=== PATIENT | female | born 1945 | race Two or more races ===

== ENCOUNTER 2022-04-21 15:42 | Emergency (ER) | payer BC, OTHER ==
[~2022-04-21] VITALS: Ht 157.5 cm; Wt 61.3 kg
[2022-04-21 15:42] VITALS: BP 175/83
== END 2022-04-21 23:55 | disposition left against medical advice (07) ==
LOC: ER 15:42
DX: M54.9 Dorsalgia, unspecified (principal); Z53.21 Procedure and treatment not carried out due to patient leaving prior to being seen by health care provider; W18.39XA Other fall on same level, initial encounter; Y93.89 Activity, other specified; Y92.89 Other specified places as the place of occurrence of the external cause; Y99.8 Other external cause status

== ENCOUNTER 2022-04-22 08:41 | Emergency (ER) | payer BC ==
[~2022-04-22] VITALS: Ht 162.6 cm; Wt 61.3 kg
[2022-04-22 08:45] VITALS: BP 149/56
== END 2022-04-22 13:04 | disposition home or self-care (01) ==
LOC: ER 08:41
DX: S39.012A Strain of muscle, fascia and tendon of lower back, initial encounter (principal); W01.0XXA Fall on same level from slipping, tripping and stumbling without subsequent striking against object, initial encounter; Y93.89 Activity, other specified; Y92.89 Other specified places as the place of occurrence of the external cause; Y99.8 Other external cause status
CPT/HCPCS: 70450; 72131; 93005

== ENCOUNTER 2025-02-08 19:24 | Inpatient (IN) | payer MEDICARE, MEDICAID ==
[~2025-02-08] VITALS: Ht 157.5 cm; Wt 68.6 kg
[~2025-02-08 19:24] MED LIST: APIX5TAB PO; EMPA1TAB PO
--- NOTE | 2025-02-08 19:31 | ED.PDOC ---
Musculoskeletal HPI Comments This is a 79 year old female ELLYA presenting to the ED with chief complaint of ankle pain. Patient reports that she had a mechanical fall yesterday at noon, twisting her left ankle in the process and since then has been experiencing pain and swelling. EMS relays that the patient's home health nurse visited her today and noted patient's HR was at 48, prompting her great granddaughter to call 911 for assistance. EMS states they provided 1mg of Atropine IV with an improvement in her heart rate up to 68. Patient denies any chest pain, back pain, SOB, dizziness, headache, N/V, or further injury at this time. Time Seen by MD: 19:28 Primary Care Provider: ROSA M Reviewed Notes: Nurses Notes, Data Management Consultant Notes, Medications, Allergies Allergies: Coded Allergies: No Known Drug Allergy (Verified Allergy, Unknown, 04/22/22) Information Source: Patient, Emergency Med Personnel Mode of Arrival: EMS Location: Left Timing: Days Prehospital treatment: None Severity: Moderate Able to Move Extremity: Yes Bear Weight: Limited Pain: Moderate Mechanism: Twisting Circumstances: Fall Onset of Symptoms: After Trauma Symptoms: Swelling, Pain DVT Risk Factors: NONE Last Tetanus: UTD Associated signs and symptoms: Ankle pain Past Medical History PAST MEDICAL HISTORY: AFIB, CHF, CVA, High Lipids, HTN Surgical History (Other): Rt shoulder surgery COMPLIANCE MONITOR History: No Pertinent COMPLIANCE MONITOR History Family History Family History: Reviewed,noncontributory to illness Social History Smoker: Non-Smoker Alcohol: Denies ETOH Use Drugs: Denies Drug Use Lives In: Home Constitutional: denies: chills, diaphoresis, fatigue, fever, malaise, sweats, weakness, others EENTM: denies: blurred vision, double vision, ear bleeding, ear discharge, ear drainage, ear pain, ear ringing, eye pain, eye redness, hearing loss, mouth p ain, mouth swelling, nasal discharge, nose bleeding, nose congestion, nose pain, photophobia, tearing, throat pain, throat swelling, voice changes, others Respiratory: denies: cough, hemoptysis, orthopnea, SOB at rest, shortness of br eath, SOB with excertion, stridor, wheezing, others Cardiovascular: denies: chest pain, dizzy spells, diaphoresis, Dyspnea on exertion, edema, irregular heart beat, left arm pain, lightheadedness, palpitations, PND, syncope, others Gastrointestinal: denies: abdomen distended, abdominal pain, blood streaked bowels, constipated, diarrhea, dysphagia, difficulty swallowing, hematemesis, melena, nausea, poor appetite, poor fluid intake, rectal bleeding, rectal pain, vomiting, others Genitourinary: denies: abnormal vagina bleeding, burning, dyspareunia, dysuria, flank pain, frequency, hematuria, incontinence, pain, , vagina discharge, urgency, others Neurological: denies: dizziness, fainting, headache, left sided numbness, left sided weakness, numbness, paresthesia, pre-existing deficit, right sided numbness, right sided weakness, seizure, speech problems, tingling, tremors, weakness, others Musculoskeletal: reports: others (Lt ankle pain); denies: back pain, gout, joint pain, joint swelling, muscle pain, muscle stiffness, neck pain Integumetry: denies: bruises, change in color, change in hair/nails, dryness, laceration, lesions, lumps, rash, wounds, others Allergic/Immunocompromised: denies: Difficulty Healing, Frequent Infections, Hives, Itching, others Hematologic/Lymphatic: denies: anemia, blood clots, easy bleeding, easy bruising, swollen glands, others Endocrine: denies: excessive hunger, excessive sweating, excessive thirst, excessive urination, flushing, intolerance to cold, intolerance to heat, unexplained weight gain, unexplained weight loss, others Psychiatric: denies: anxiety, bipolar disorder, depression, hopeless, panic disorder, schizophrenia, sleepless, suicidal, others All Other Systems: Reviewed and Negative Physical Exam General Appearance: Moderate Distress HEENT: Normal ENT Inspection, Pharynx Normal, TMs Normal Neck: Full Range of Motion, Non-Tender, Normal, Normal Inspection Respiratory: Chest Non-Tender, Lungs Clear, No Accessory Muscle Use, No Respiratory Distress, Normal Breath Sounds Cardiovascular: No Edema, No JVD, No Murmur, No Gallop, Normal Peripheral Pulses, Regular Rate/Rhythm Breast Exam: Deferred Gastrointestinal: No Organomegaly, Non Tender, No Pulsatile Mass, Normal Bowel Sounds, Soft Genitalia: Deferred Pelvic: Deferred Rectal: Deferred Extremities: No calf tenderness, Normal capillary refill, No pedal edema Musculoskeletal : Location: Left Extremity Location: Ankle Apperance: Swelling, Limited ROM, Tenderness: Moderate Neurologic: Alert, service bar cashier II-XII nml as Tested, No Motor Deficits, Normal Affect, Normal Mood, No Sensory Deficits Cerebellar Function: Normal Reflexes: Normal Skin: Dry, Normal Color, Warm Lymphatic: No Adenopathy Was a procedure done? Was a procedure done?: No EKG EKG : Pulse Rate (adult): 78 [place]: Normal Cardiac Rhythm: NSR Block: None Hypertrophy: LAE ST: Normal Differential Diagnosis EXT Differential Diagnosis: Fracture, Sprain, Contusion, Strain X-Ray, Labs, Meds, VS Vital Signs Date Time Temp Pulse Resp B/P (MAP) Pulse Ox O2 Delivery O2 Flow Rate FiO2 02/08/25 20:00 52 11 130/79 (96) 92 02/08/25 19:34 78 02/08/25 19:31 60 02/08/25 19:24 98.0 62 17 117/64 99 98.0 Lab Test 02/08/25 20:40 02/08/25 19:35 Range/Units Troponin I High Sensitivity Pending 6 </=34 ng/L White Blood Count 4.6 4.4-10.8 10^3/uL Red Blood Count 4.27 4.0-5.20 10^6/uL Hemoglobin 13.1 12.2-16.2 g/dL Hematocrit 39.3 36.0-46.0 % Mean Corpuscular Volume 92.1 80.0-100.0 fL Mean Corpuscular Hemoglobin 30.6 28.0-32.0 pg Mean Corpuscular Hemoglobin Concent 33.3 32.0-36.0 g/dL Red Cell Distribution Width 16.4 H 11.8-14.3 % Platelet Count 304 140-450 10^3/uL Mean Platelet Volume 8.4 6.9-10.8 fL Neutrophils (%) (Auto) 53.6 37.0-80.0 % Lymphocytes (%) (Auto) 32.6 10.0-50.0 % Monocytes (%) (Auto) 11.4 0.0-12.0 % Eosinophils (%) (Auto) 1.3 0.0-7.0 % Basophils (%) (Auto) 1.1 0.0-2.0 % Neutrophils # (Auto) 2.5 1.6-8.6 10 ^3/uL Lymphocytes # (Auto) 1.5 0.4-5.4 10 ^3/uL Monocytes # (Auto) 0.5 0-1.3 10 ^3/uL Eosinophils # (Auto) 0.1 0-0.8 10 ^3/uL Basophils # (Auto) 0.1 0-0.2 10 ^3/uL Nucleated Red Blood Cells 0.1 % Sodium Level 140 136-145 mmol/L Potassium Level 4.2 3.5-5.1 mmol/L Chloride Level 104 98-107 mmol/L Carbon Dioxide Level 26 20-31 mmol/L Anion Gap 10 5-15 Blood Urea Nitrogen 19 9-23 mg/dL Creatinine 1.60 H 0.550-1.02 mg/dL Glomerular Filtration Rate Calc 33 >90 mL/min BUN/Creatinine Ratio 11.9 10.0-20.0 Serum Glucose 113 H 74-106 mg/dL Calcium Level 9.5 8.7-10.4 mg/dL Magnesium Level 2.1 1.6-2.6 mg/dL The patient's CBC is within normal limits The chemistry panel is within normal limits except for creatinine of 1.6 The troponin level is negative At this time the chest x-ray is negative The x-ray of the left ankle shows: FINDINGS/IMPRESSION: [ There is an acute fracture distal fibular meta diaphysis/lateral malleolus. Lateral malleolar region soft tissue edema. Osteopenia. Inferior calcaneal spurring. Cortical irregularity 5th metatarsal base. Correlate with point tenderness to exclude fracture. The patient is being placed in a stirrup splint. The patient will be admitted to the hospitalist The patient had another episode of bradycardia here in the emergency department's The patient will be admitted and a cardiology consult will be obtained. Images Reviewed?: Images reviewed and evaluated by me Time of 1ST Reevaluation: 20:58 Reevaluation 1ST: Unchanged Patient Education/Counseling: Diagnosis, Treatment, Prognosis Family Education/Counseling: No Family Present Departure 1 Departure Time of Disposition: 20:57 Impression: Primary Impression: Closed left ankle fracture Qualified Codes: S82.892A - Other fracture of left lower leg, initial enco unter for closed fracture Additional Impressions: Bradycardia Generalized weakness Disposition: 09 ADMITTED INPATIENT Admit to: [facility] Condition: Fair Critical Care Note Critical Care Time?: No Stability Stability form required: No Heart Score Heart Score: Heart Score Response (Comments) Value History N/A 0 EKG N/A 0 Age N/A 0 Risk Factors N/A 0 Troponin N/A 0 Total 0 I personally scribed for NUNU WILSON MD ([email or web address]) on 02/08/25 at 19:31. Electronically submitted by Anthony Beckett ([email or web address]). I personally scribed for NUNU WILSON MD ([email or web address]) on 02/08/25 at 19:34. Electronically submitted by Anthony Beckett ([email or web address]). NUNU WILSON MD Feb 08, 2025 19:31
--- NOTE | 2025-02-08 19:37 | ECG ---
[facility] Test Date: 2025-02-08 Test Time: 19:31:43 Pat Name: ARTHUR TAVARES Department: Room: 024[facility] Gender: F [employer] Director School: [employer] : 1945 Requested By: NUNU WILSON Order Number: [id number] Reading MD: Eric Albright Measurements Intervals [place] Rate: 60 P: 67 IN: 171 QRS: -70 QRSD: 125 T: 102 QT: 442 QTc: 442 Interpretive Statements Sinus rhythm Probable left atrial enlargement Nonspecific IVCD with LAD Nonspecific T abnormalities, lateral leads Electronically Signed On 02-11-2025 18:49:09 PDT by Eric Albright Please click the below link to view image of tracing.
[2025-02-08 19:48] LABS: Hematocrit 39.3 % (36.0-46.0); Hemoglobin 13.1 g/dL (12.2-16.2); Mean Corpuscular Hemoglobin 30.6 pg (28.0-32.0); Mean Corpuscular Volume 92.1 fL (80.0-100.0); Nucleated Red Blood Cells % 0.1 %
[2025-02-08 19:59] LABS: Chloride 104 mmol/L (98-107); Potassium 4.2 mmol/L (3.5-5.1); Sodium 140 mmol/L (136-145)
[2025-02-08 20:00] LABS: Anion Gap 10 (5-15); Calcium 9.5 mg/dL (8.7-10.4); Carbon Dioxide 26 mmol/L (20-31)
[2025-02-08 20:05] LABS: BUN/Creatinine Ratio 11.9 (10.0-20.0); Blood Urea Nitrogen 19 mg/dL (9-23)
[2025-02-08 20:08] LABS: Glucose 113 mg/dL (74-106)
--- NOTE | 2025-02-08 20:47 | DVH ---
CHEST RADIOGRAPH Indication: fall Technique: Single frontal view of the chest was obtained Comparison: None FINDINGS: The cardiac silhouette is enlarged. The lungs demonstrate perihilar airspace opacities. The pulmonary vasculature is prominent. There is no pleural effusion. There is no pneumothorax. Aortic atheroscler otic disease. IMPRESSION: Cardiomegaly with pulmonary vascular congestion and bilateral perihilar airspace opacities.
--- NOTE | 2025-02-08 20:48 | DVH ---
Indication: fall Technique: XY L ANKLE 3 VIEWXY Comparison: None FINDINGS/IMPRESSION: [ There is an acute fracture distal fibular meta diaphysis/lateral malleolus. Lateral malleolar jaiden on soft tissue edema. Osteopenia. Inferior calcaneal spurring. Cortical irregularity 5th metatarsal base. Correlate with point tenderness to exclude fracture.
[2025-02-08] MEDS: ONDANSETRON HCL 4 MG/2 ML VIAL IV ONE (21:26)
[2025-02-08] MEDS: MORPHINE SULFATE 4 MG/ML SYR/VIAL IV ONE (21:26)
[2025-02-08] MEDS ORDERED: HYDROcodone-ACET 5/325MG TAB PO PRN (22:15)
[2025-02-08] MEDS ORDERED: MORPHINE SULFATE INJ 2 MG/ml SYRG IV PRN (22:15)
[2025-02-08] MEDS ORDERED: NITROGLYCERIN 0.4 MG SL TAB SL PRN (22:15)
--- NOTE | 2025-02-08 22:15 | DVHHP2 ---
History of Present Illness Reason for Visit: Closed left ankle fracture History of Present Illness The patient is a 79 year female with past medical history of AFib, CHF, CVA, hyperlipidemia, and hypertension who presented to [facility] with complaint of left ankle pain. Patient reports that she had a mechanical fall yesterday at noon, twisting her left ankle in the process and since then she has been experiencing pain and swelling. EMS reports that the patient's home health nurse visited her today and noted patient's HR was at 48, prompting her great granddaughter to call 911 for assistance. Patient was seen and evaluated in the ED, laboratory data shows WBC 4.6, platelets 304, sodium 140, potassium 4.2, BUN 19, creatinine 1.60, glucose 113, calcium 9.5, troponin 7, blood pressure 116/49, heart rate 44, temperature 97.6 F, O2 saturation 98% on room air. Left ankle x-ray revealing acute fracture distal fibula meta diaphysis/lateral malleolus; lateral malleolar region soft tissue edema; osteopenia, inferior calcaneal spurring. Chest x-ray revealing cardiomegaly with pulmonary vascular congestion and bilateral perihilar airspace opacities. Please see medication orders section in the computer. On my assessment, patient denied chest pain, no headache, no dizziness, no diaphoresis, no shortness of breaths, no nausea, no vomiting, no fever, no chills. Patient was admitted for further evaluation and medical management. Past Medical History AFIB, CHF, CVA, High Lipids, HTN Past Surgical History Rt shoulder surgery Family History Reviewed, noncontributory to the management of this case. Past Social History The patient lives at home, denies smoking, alcohol or illicit drugs abuse. Review of Systems Constitutional: No: Fever, Chills, Sweats, Weakness, Malaise, Other Eyes: No: Pain, Vision change, Conjunctivae inflammation, Eyelid inflammation, Other, Redness ENT: No: Ear pain, Ear discharge, Nose pain, Nose discharge, Nose congestion, Mouth pain, Mouth swelling, Throat pain, Throat swelling, Other Respiratory: No: Cough, Dry, Shortness of breath, SOB with excertion, Wheezing, Hemoptysis, Pleuritic Pain, Sputum, Wheezing, Other Cardiovascular: No: Chest Pain, Palpitations, Orthopnea, Paroxysmal Noc. Dyspnea, Edema, Lt Headedness, Other Gastrointestinal: No: Nausea, Vomiting, Abdominal Pain, Diarrhea, Constipation, Melena, Hematochezia, Other Genitourinary: No Dysuria, No Frequency, No Incontinence, No Hematuria, No Retention, No Other Musculoskeletal: other (Lt ankle pain); No: neck pain, shoulder pain, arm pain, back pain, hand pain, leg pain, foot pain Skin: No: Rash, Lesions, Jaundice, Bruising, Other Neurological: No: Weakness, Numbness, Incoordination, Change in speech, Confusion, Seizures, Other Allergies: Coded Allergies: No Known Drug Allergy (Verified Allergy, Unknown, 04/22/22) Exam Vital Signs Vital Signs Date Time Temp Pulse Resp B/P (MAP) Pulse Ox O2 Delivery O2 Flow Rate FiO2 02/08/25 21:26 44 15 116/49 02/08/25 20:40 Room Air* 0 21 02/08/25 20:40 97.2 98 97.2 General Appearance: Alert, Oriented X3, Cooperative, No acute distress HEENT: Atraumatic, PERRLA, EOMI, Mucous membr. moist/pink Respiratory: Normal air movement Cardiovascular: Regular rate, Normal S1, Normal S2, No murmurs Abdominal: Normal bowel sounds, Soft, No tenderness, No hepatospenomegaly, No masses Extremities: No clubbing, No cyanosis, No edema, Normal pulses, Other (Left ankle tenderness) Skin: No rashes, No significant lesion Neuro: Normal speech, Normal tone, Sensation intact, Cranial nerves 3-12 NL, Reflexes 2+, Other (Generalized weakness) Psych/Mental Status: Mental status NL, Mood NL Labs/Xrays Labs Test 02/08/25 20:40 02/08/25 19:35 Range/Units Troponin I High Sensitivity 7 </=34 ng/L White Blood Count 4.6 4.4-10.8 10^3/uL Red Blood Count 4.27 4.0-5.20 10^6/uL Hemoglobin 13.1 12.2-16.2 g/dL Hematocrit 39.3 36.0-46.0 % Mean Corpuscular Volume 92.1 80.0-100.0 fL Mean Corpuscular Hemoglobin 30.6 28.0-32.0 pg Mean Corpuscular Hemoglobin Concent 33.3 32.0-36.0 g/dL Red Cell Distribution Width 16.4 H 11.8-14.3 % Platelet Count 304 140-450 10^3/uL Mean Platelet Volume 8.4 6.9-10.8 fL Neutrophils (%) (Auto) 53.6 37.0-80.0 % Lymphocytes (%) (Auto) 32.6 10.0-50.0 % Monocytes (%) (Auto) 11.4 0.0-12.0 % Eosinophils (%) (Auto) 1.3 0.0-7.0 % Basophils (%) (Auto) 1.1 0.0-2.0 % Neutrophils # (Auto) 2.5 1.6-8.6 10 ^3/uL Lymphocytes # (Auto) 1.5 0.4-5.4 10 ^3/uL Monocytes # (Auto) 0.5 0-1.3 10 ^3/uL Eosinophils # (Auto) 0.1 0-0.8 10 ^3/uL Basophils # (Auto) 0.1 0-0.2 10 ^3/uL Nucleated Red Blood Cells 0.1 % Sodium Level 140 136-145 mmol/L Potassium Level 4.2 3.5-5.1 mmol/L Chloride Level 104 98-107 mmol/L Carbon Dioxide Level 26 20-31 mmol/L Anion Gap 10 5-15 Blood Urea Nitrogen 19 9-23 mg/dL Creatinine 1.60 H 0.550-1.02 mg/dL Glomerular Filtration Rate Calc 33 >90 mL/min BUN/Creatinine Ratio 11.9 10.0-20.0 Serum Glucose 113 H 74-106 mg/dL Calcium Level 9.5 8.7-10.4 mg/dL Magnesium Level 2.1 1.6-2.6 mg/dL PATIENT: ARTHUR TAVARES ACCT: [id number] UNIT: [id number] : 1945 LOC: ER ROOM / BED: / AGE / SEX: 79 / F ADM STATUS: REG ER SERVICE 27 ORDERING PHYSICIAN: NUNU WILSON MD PROCEDURE(s): LANKL - L ANKLE 3 VIEW REASON: fall ORDER NUMBER(s): [id number], ACCESSION NUMBER(s): [id number] Indication: fall Technique: XY L ANKLE 3 VIEWXY Comparison: None FINDINGS/IMPRESSION: There is an acute fracture distal fibular meta diaphysis/lateral malleolus. Lateral malleolar region soft tissue edema. Osteopenia. Inferior calcaneal spurring. Cortical irregularity 5th metatarsal base. Correlate with point tenderness to exclude fracture. ORDERING PHYSICIAN: NUNU WILSON MD PROCEDURE(s): CXRP - CHEST PORTABLE REASON: fall ORDER NUMBER(s): [id number], ACCESSION NUMBER(s): [id number] CHEST RADIOGRAPH Indication: fall Technique: Single frontal view of the chest was obtained Comparison: None FINDINGS: The cardiac silhouette is enlarged. The lungs demonstrate perihilar airspace opacities. The pulmonary vasculature is prominent. There is no pleural effusion. There is no pneumothorax. Aortic atherosclerotic disease. IMPRESSION: Cardiomegaly with pulmonary vascular congestion and bilateral perihilar airspace opacities. SEPSIS Sepsis Screen Date sepsis recognized/suspect: Feb 08, 2025 Time Sepsis recognized/suspect: 2039 Recent Procedure: No On Antibiotic Therapy: No Respiratory Rate >20: No Heart Rate >90: No Temp<36 C (96.8 F) or >38.3 C: No SBP <90 or MAP <65 mmHG: No New Acute Mental Status Change: No Is the patient on CPAP, BIPAP,: No Physician Orders Chest Portable (02/08/25 19:28) Heplock Iv (02/08/25 19:28) Metal Mover (02/08/25 19:28) Blood Pressure (02/08/25 19:28) Pulse Oximetry (02/08/25 19:28) L Ankle 3 View (02/08/25 19:28) Electrocardigram (02/08/25 20:28) Electrocardigram (02/08/25 22:28) Insert Bruno Catheter QSHIFT (02/08/25 21:13) * Cardiology Consult (02/08/25 21:47) Amiodarone Tablet (Cordarone Tablet) (02/09/25 10:00) Atorvastatin (Lipitor) (02/09/25 22:00) Apixaban (Eliquis) (02/09/25 10:00) Code Status (02/08/25 22:10) Sodium Chloride Lock (Saline Lock Ns) (02/09/25 06:00) Oxygen Per Hour (9/19/25 22:10) Hydrocodone-Acet 5/325mg Tab ([place] 5/32 (02/08/25 22:15) Ondansetron Hcl (Zofran) (02/08/25 22:15) Docusate Sodium Capsule (Colace Capsule) (02/08/25 22:15) Fall Risk Precautions In Place QSHIFT (02/08/25 22:10) Complete Blood Count (02/09/25 04:00) Comprehensive Metabolic Panel (02/09/25 04:00) Cardiac Diet-2gna,Lofat,Lochol (02/09/25 Breakfast) Condition: Serious (02/08/25 22:10) Acetaminophen Tablet (Tylenol Tablet) (02/08/25 22:15) Maintain Bed Rest (02/08/25 22:10) Sequential Compression Device (02/08/25 ) Nitroglycerin Sublingual (Ntrostat Subli (02/08/25 22:15) Morphine Sulfate Injection (02/08/25 22:15) Stat Ekg For Chest Pain (02/08/25 22:10) Notify Md Of Changes From Base (02/08/25 22:10) Physical Chemistry Professor For 24 Hours (02/08/25 22:10) Emergency Dysrhythmia Protocol (02/08/25 22:10) Rhythm Strips Once Every Shift (02/08/25 22:10) Oxygen By Nasal Cannula (02/08/25 22:10) Admit (02/08/25 22:10) Allergies (02/08/25 22:10) Vital Signs Date Time Temp Pulse Resp B/P (MAP) Pulse Ox O2 Delivery O2 Flow Rate FiO2 02/08/25 21:26 44 15 116/49 02/08/25 20:40 Room Air* 0 21 02/08/25 20:40 97.2 48 11 123/52 (75) 98 97.2 02/08/25 20:00 52 11 130/79 (96) 92 02/08/25 19:34 78 02/08/25 19:31 60 02/08/25 19:24 98.0 62 17 117/64 99 98.0 Laboratory Tests Test 02/08/25 19:35 White Blood Count 4.6 10^3/uL (4.4-10.8) Medications Medications Dose Ordered Sig/Homer Route Start Time Stop Time Status Last Admin Dose Admin Morphine Sulfate 4 mg ONCE ONCE IV 02/08/25 21:15 02/08/25 21:16 DC 02/08/25 21:26 4 MG Ondansetron HCl 4 mg ONCE ONCE IV 02/08/25 21:15 02/08/25 21:16 DC 02/08/25 21:26 4 MG Assessment/Plan Assessment/Plan Closed left ankle fracture Bradycardia Acute renal injury Generalized weakness Other fracture of left lower leg, initial encounter for closed fracture Plan 1. Admit to telemetry unit 2. Breathing treatment 3. Pain control management 4. Management of fluids and electrolytes 5. Consultation for orthopedic/cardiology 6. Diagnostic tests chest x-ray 7. DVT prophylaxis-on aspirin 8. Repeat labs CBC, CMP in a.m. 9. Continue with current medical management 10. Treatment plan discussed with patient and RN. Patient verbalized understanding. Plan discussed with: Patient, Other (RN) My Orders Orders - EMELIA SMITH DNP Procedure Category Date Status Time * Cardiology Consult CONS 02/08/25 Transmitted 21:47 Amiodarone Tablet PHA 02/09/25 Transmitted (Cordarone Tablet) 10:00 Atorvastatin (Lipitor) PHA 02/09/25 Transmitted 22:00 Apixaban (Eliquis) PHA 02/09/25 Transmitted 10:00 Code Status CODE 02/08/25 Transmitted 22:10 Sodium Chloride Lock PHA 02/09/25 Transmitted (Saline Lock Ns) 06:00 Oxygen Per Hour RT 02/08/25 Transmitted 22:10 Hydrocodone-Acet PHA 02/08/25 Transmitted 5/325mg Tab ([place] 22:15 Ondansetron Hcl PHA 02/08/25 Transmitted (Zofran) 22:15 Docusate Sodium PHA 02/08/25 Transmitted Capsule (Colace 22:15 Fall Risk Precautions AJ 02/08/[address] 22:10 Complete Blood Count LAB 02/09/25 Verified 04:00 Comprehensive LAB 02/09/25 Verified Metabolic Panel 04:00 Cardiac DIET 02/09/25 Transmitted Diet-2gna,Lofat,Lochol Breakfast Condition: Serious AJ 02/08/25 Transmitted 22:10 Acetaminophen Tablet PHA 02/08/25 Transmitted (Tylenol Tablet) 22:15 Maintain Bed Rest AJ 02/08/25 Transmitted 22:10 Sequential AJ 02/08/25 Transmitted Compression Device Nitroglycerin [facility] 02/08/25 Transmitted Sublingual (Ntrostat 22:15 Morphine Sulfate [facility] 02/08/25 Transmitted Injection 22:15 Stat Ekg For Chest [facility] 02/08/25 Transmitted Pain 22:10 Notify Md Of Changes [facility] 02/08/25 Transmitted From Base 22:10 Physical Chemistry Professor For [facility] 02/08/25 Transmitted 24 Hours 22:10 Emergency Dysrhythmia [facility] 02/08/25 Transmitted Protocol 22:10 Rhythm Strips Once [facility] 02/08/25 Transmitted Every Shift 22:10 Oxygen By Nasal RT 02/08/25 Transmitted Cannula 22:10 Admit ADMIT 02/08/25 Transmitted 22:10 Allergies AJ 02/08/25 Transmitted 22:10 Problem List: (1) Closed left ankle fracture (2) Bradycardia (3) Acute renal injury (4) Generalized weakness (5) Other fracture of left lower leg, initial encounter for closed fracture Date of Service: Feb 08, 2025 Billing Provider: EMELIA SMITH DNP Common Visit Codes: [id number] INP/OBS CARE (HIGH) EMELIA SMITH DNP Feb 08, 2025 22:15
[2025-02-08] MEDS: ATROPINE SULF 1 MG/10ml SYR IV ONE (22:40)
[2025-02-09] VITALS (88 sets, daily range): BP systolic 56–139; BP diastolic 29–83; PULSE 39–80; RESP 9–22; TEMP 97.6–99.2; O2SAT 60–99
[2025-02-09] MEDS ORDERED: ATOR-507 PO (01:40)
[2025-02-09] MEDS ORDERED: LISI40TA16 PO (01:40)
[2025-02-09] MEDS ORDERED: SPIR25TA8 PO (01:40)
[2025-02-09] MEDS ORDERED: AMIO200T33 PO (01:40)
[2025-02-09] MEDS ORDERED: AMLO1TAB22 PO (01:40)
[2025-02-09] MEDS ORDERED: GABA-1308 PO (01:40)
[2025-02-09] MEDS ORDERED: FURO20TA3 PO (01:40)
[2025-02-09] MEDS: DOPamine 1600MCG/ML D5W 250 ML IV SCH ×2 (02:09→06:59)
[2025-02-09] MEDS: DOPamine 1600MCG/ML D5W 250 ML IV ONE (02:15)
[2025-02-09] MEDS: SODIUM CHLOR 0.9% PF (SALINE LOCK) 10ML VIAL/SYR IV SCH (05:36)
[2025-02-09] MEDS: ACETAMINOPHEN 325 MG TAB PO PRN (05:37)
[2025-02-09 05:53] LABS: Hematocrit 40.4 % (36.0-46.0); Hemoglobin 13.6 g/dL (12.2-16.2); Mean Corpuscular Hemoglobin 30.8 pg (28.0-32.0); Mean Corpuscular Volume 91.5 fL (80.0-100.0); Nucleated Red Blood Cells % 0.1 %
[2025-02-09 06:10] LABS: Alanine Aminotransferase 11 U/L (7-40); Albumin 4.2 g/dL (3.2-4.8); Alkaline Phosphatase 85 U/L (46-116); Anion Gap 10 (5-15); BUN/Creatinine Ratio 12.5 (10.0-20.0); Blood Urea Nitrogen 21 mg/dL (9-23); Calcium 9.4 mg/dL (8.7-10.4); Carbon Dioxide 26 mmol/L (20-31); Chloride 105 mmol/L (98-107); Glucose 100 mg/dL (74-106); Potassium 4.3 mmol/L (3.5-5.1); Sodium 141 mmol/L (136-145); Total Protein 7.6 g/dL (5.7-8.2)
[2025-02-09 06:11] LABS: Bilirubin, Total 0.5 mg/dL (0.2-1.0)
--- NOTE | 2025-02-09 09:25 | DVHINCON2 ---
Date Seen: Feb 09, 2025 Referring Physician ANA LILIA Harris Reason for Consultation Bradycardia History of Present Illness 79-year-old female with past medical history of atrial fibrillation on Eliquis and amiodarone, prior CVA, right lower extremity DVT, PE, hyperlipidemia, hypertension, and CHF, presents via EMS with complaint of left ankle pain. Patient reports a mechanical fall two days ago, with progressive ankle pain pro mpting ED visit. She was found to have a left ankle fracture. Incidentally she was noted to be bradycardic with heart rate as low as 38, prompting cardiology consultation. Patient was started on dopamine infusion at five mcg/min, with rhythm now sustained sinus bradycardia in 60s. Patient is alert and oriented x3 and denies dizziness, syncope, shortness of breath, chest pain, or palpitations. She reports being evaluated at [facility] a few weeks ago for bradycardia, during which she wore a Holter monitor. She has a scheduled appointment with her branch sales and service representative, Dr. Reddy, in two days to discuss the results. I spoke to her daughter on the phone and provides collateral history. Past Medical History As stated in HPI Past Surgical History Right shoulder surgery Family History: Diabetes mellitus G8 MOTHER Family History Reviewed, non-contributory to the management of this case. Social History The patient lives at home, denies smoking, alcohol or illicit drugs abuse. Allergies: Coded Allergies: No Known Drug Allergy (Verified Allergy, Unknown, 04/22/22) Home Meds Reported Medications Amiodarone Hcl (Amiodarone Hcl) 200 Mg Tab, 200 MG PO Q12HR for 30 Days 02/09/25 Furosemide (Furosemide) 20 Mg Tab, 20 MG PO DAILY for 30 Days, MG 02/09/25 Empagliflozin (Jardiance) 10 Mg Tab, 10 MG PO, TAB 02/09/25 Lisinopril (Lisinopril) 40 Mg Tab, 40 MG PO DAILY for 30 Days, MG 02/09/25 Spironolactone (Spironolactone) 25 Mg Tab, 1 TAB PO DAILY, #30 TAB 5 Refills 02/09/25 Atorvastatin Calcium (Lipitor) 40 Mg Tab, 1 TAB PO DAILY, #30 TAB 5 Refills 02/09/25 Amlodipine Besylate (Amlodipine Besylate) 5 Mg Tab, 10 MG PO DAILY for 30 Days, MG 02/09/25 Gabapentin (Gabapentin) 100 Mg Cap, 100 MG PO TID 02/09/25 Current Medications Current Medications Medications (Trade) Dose Ordered Sig/Homer Route PRN Reason Start Time Stop Time Status Last Admin Amiodarone HCl (Cordarone Tablet) 200 mg Q12HR PO 02/09/25 10:00 02/08/25 22:36 DC Atorvastatin Calcium (Lipitor) 20 mg HS PO 02/09/25 22:00 Apixaban (Eliquis) 5 mg BID PO 02/09/25 10:00 Sodium Chloride (Saline Lock Ns) 10 ml Q8HR IV 02/09/25 06:00 02/09/25 05:36 Acetaminophen/ Hydrocodone Bitart ([place] 5/325MG Tab) 1 tab Q4HP PRN PO MODERATE PAIN (4-6 PAIN SCALE) 02/08/25 22:15 Ondansetron HCl (Zofran) 4 mg Q4HP PRN IV NAUSEA / VOMITING 02/08/25 22:15 Docusate Sodium (Colace Capsule) 100 mg BIDPRN PRN PO FOR CONSTIPATION 02/08/25 22:15 Acetaminophen (Tylenol Tablet) 650 mg Q6HP PRN PO PAIN SCALE 1-3 OR TEMP>100.4 02/08/25 22:15 02/09/25 05:37 Nitroglycerin (Ntrostat Sublingual) 0.4 mg Q5MINP PRN SL FOR CHEST PAIN 02/08/25 22:15 Morphine Sulfate 2 mg Q30M PRN IV FOR CHEST PAIN 02/08/25 22:15 Dopamine HCl/ Dextrose 250 ml @ 13.125 mls/ hr Q19H3M IV 02/09/25 02:00 02/09/25 06:45 DC 02/09/25 02:09 Dopamine HCl/ Dextrose 250 ml @ 13.125 mls/ hr Q19H3M IV 02/09/25 06:45 02/09/25 06:59 Review of Systems Constitutional: No symptom reported Ears, Nose, & Throat: No symptom reported Eyes: No symptom reported Neurological: No symptoms reported Pulmonary/Respiratory: No symptom reported Cardiovascular: Bradycardia Gastrointestinal: No symptom reported Genitourinary: No symptom reported Musculoskeletal: Left ankle pain Skin: No symptom reported Psychiatric: No symptom reported Endocrine: No symptom reported Hemotologic/Lymphatic: No symptom reported Vital Signs Vital Signs Date Time Temp Pulse Resp B/P (MAP) Pulse Ox O2 Delivery O2 Flow Rate FiO2 02/09/25 07:00 65 13 102/43 (62) 93 02/09/25 04:30 97.6 97.6 02/09/25 00:40 Nasal Cannula* 2 28 Physical Exam INITIAL VITAL SIGNS: Reviewed by me GENERAL: Alert and interactive. No acute distress. HEAD: Head is normocephalic and atraumatic. EYES: EOMI, PERRL. No scleral icterus. No conjunctival injection. ENT: Moist mucous membranes. NECK: Supple, No masses, Full range of motion. RESPIRATORY: No tachypnea. Clear breath sounds bilaterally. No wheezing, rales, rhonchi. CV: Regular rate and rhythm. No edema GI/: Active bowel sounds, soft, nondistended, nontender. No guarding. No rebound. No masses. No CVA tenderness. INTEGUMENTARY: Warm and dry. No obvious rashes. Left ankle swelling and tenderness, limited range of motion. No calf swelling. Pulses palpable NEUROLOGIC: Alert and oriented. Face is symmetric. Speech is normal. Moves all extremities equally. Labs/Diagnostic Data Labs Test 02/09/25 05:15 02/08/25 20:40 02/08/25 19:35 Range/Units White Blood Count 6.8 # 4.4-10.8 10^3/uL Red Blood Count 4.42 4.0-5.20 10^6/uL Hemoglobin 13.6 12.2-16.2 g/dL Hematocrit 40.4 36.0-46.0 % Mean Corpuscular Volume 91.5 80.0-100.0 fL Mean Corpuscular Hemoglobin 30.8 28.0-32.0 pg Mean Corpuscular Hemoglobin Concent 33.6 32.0-36.0 g/dL Red Cell Distribution Width 15.9 H 11.8-14.3 % Platelet Count 307 140-450 10^3/uL Mean Platelet Volume 8.3 6.9-10.8 fL Neutrophils (%) (Auto) 66.7 37.0-80.0 % Lymphocytes (%) (Auto) 22.8 10.0-50.0 % Monocytes (%) (Auto) 8.4 0.0-12.0 % Eosinophils (%) (Auto) 1.5 0.0-7.0 % Basophils (%) (Auto) 0.6 0.0-2.0 % Neutrophils # (Auto) 4.5 1.6-8.6 10 ^3/uL Lymphocytes # (Auto) 1.5 0.4-5.4 10 ^3/uL Monocytes # (Auto) 0.6 0-1.3 10 ^3/uL Eosinophils # (Auto) 0.1 0-0.8 10 ^3/uL Basophils # (Auto) 0 0-0.2 10 ^3/uL Nucleated Red Blood Cells 0.1 % Sodium Level 141 136-145 mmol/L Potassium Level 4.3 3.5-5.1 mmol/L Chloride Level 105 98-107 mmol/L Carbon Dioxide Level 26 20-31 mmol/L Anion Gap 10 5-15 Blood Urea Nitrogen 21 9-23 mg/dL Creatinine 1.68 H 0.550-1.02 mg/dL Glomerular Filtration Rate Calc 31 >90 mL/min BUN/Creatinine Ratio 12.5 10.0-20.0 Serum Glucose 100 74-106 mg/dL Calcium Level 9.4 8.7-10.4 mg/dL Total Bilirubin 0.5 0.2-1.0 mg/dL Aspartate Amino Transferase (AST) 17 13-40 U/L Alanine Aminotransferase (ALT) 11 7-40 U/L Alkaline Phosphatase 85 46-116 U/L Total Protein 7.6 5.7-8.2 g/dL Albumin 4.2 3.2-4.8 g/dL Troponin I High Sensitivity 7 </=34 ng/L Magnesium Level 2.1 1.6-2.6 mg/dL B-Type Natriuretic Peptide 89.03 0-100 pg/mL PROCEDURE(s): CXRP - CHEST PORTABLE REASON: fall ORDER NUMBER(s): [id number], ACCESSION NUMBER(s): [id number] CHEST RADIOGRAPH Indication: fall Technique: Single frontal view of the chest was obtained Comparison: None FINDINGS: The cardiac silhouette is enlarged. The lungs demonstrate perihilar airspace opacities. The pulmonary vasculature is prominent. There is no pleural effusion. There is no pneumothorax. Aortic atherosclerotic disease. IMPRESSION: Cardiomegaly with pulmonary vascular congestion and bilateral perihilar airspace opacities. Assessment Sinus bradycardia--possible Medication-related bradycardia Cardiomegaly with pulmonary vascular congestion Hx of AFib on Eliquis and amiodarone CHF Hypertension Hyperlipidemia hx of DVT and PE on Eliquis hx of CVA Plan/Recommendation (Dr. Dorsey ): * Hold carvedilol. Continue amiodarone with close monitoring * Dopamine infusion for heart rate support, wean off as tolerated * Telemetry monitoring for sustained bradyarrhythmias * Echocardiogram to assess LV function, valvular disease, wall motion abnormalities * Obtain medical record from [facility] * We will consider EP evaluation for pacemaker if bradycardia persists * Continue with diuretics and statins * Close cardiac surveillance This medical document was created using an electronic medical record system with voice recognition software and computerized dictation system. Although this document has been carefully reviewed, there might still be some phonetic and typographical errors. Occasional wrong-word or ``sound-alike substitutions may have occurred due to the inherent limitations of voice recognition software. These areas are purely typographical due to imperfections of the software programs and do not reflect any compromise in the patient's medical care. Please read the chart carefully and recognize, using context, where these substitutions have occurred. Plan discussed with: Patient Plan discussed with: Patient, Daughter, Other (RN) NYHA Physical activity limitations: Class2(Slight)fatigue,sob Date of Service: Feb 09, 2025 Billing Provider: ANDREA DORSEY MD Cardiology Common Codes: CONSULT ONLY Cardiology Consultation Codes: [id number] CONSULT <45MIN SIRI BATRES DIRECTOR OF [employer] Feb 09, 2025 09:25
[2025-02-09 09:59] LABS: Triglycerides 80 mg/dL (< 150)
[2025-02-09] MEDS ORDERED: AMIODARONE HCL 200 MG TAB PO SCH (10:00)
[2025-02-09 10:01] LABS: HDL Cholesterol 59 mg/dL (40-59)
[2025-02-09 10:02] LABS: Cholesterol 157 mg/dL (< 200)
[2025-02-09] MEDS: APIXABAN 5 MG TAB PO SCH (10:18)
[2025-02-09] MEDS: FUROSEMIDE 20 MG TAB PO SCH (12:51)
[2025-02-09] MEDS: ONDANSETRON HCL 4 MG/2 ML VIAL IV PRN (13:04)
--- NOTE | 2025-02-09 13:40 | DVHPN2 ---
Reviewed: Care Plan, H&P, Medications, Previous Orders, Radiology Changes from previous H/P or p: No Changes Eyes: No Pain, No Vision change, No Conjunctivae inflammation, No Eyelid inflammation, No Other, No Redness ENT: No Ear pain, No Ear discharge, No Nose pain, No Nose discharge, No Nose congestion, No Mouth pain, No Mouth swelling, No Throat pain, No Throat swelling, No Other Cardiovascular: No Chest Pain, No Palpitations, No Orthopnea, No Paroxysmal Noc. Dyspnea, No Edema, No Lt Headedness, No Other Respiratory: No Cough, No Dry, No Shortness of breath, No SOB with excertion, No Wheezing, No Hemoptysis, No Pleuritic Pain, No Sputum, No Other Gastrointestinal: No Nausea, No Vomiting, No Abdominal Pain, No Diarrhea, No Constipation, No Melena, No Hematochezia, No Other Genitourinary: No Dysuria, No Frequency, No Incontinence, No Hematuria, No Retention, No Other Musculoskeletal: other (Lt ankle pain); No neck pain, No shoulder pain, No arm pain, No back pain, No hand pain, No leg pain, No foot pain Skin: No Rash, No Lesions, No Jaundice, No Bruising, No Other Objective Vitals Vital Signs Date Time Temp Pulse Resp B/P (MAP) Pulse Ox O2 Delivery O2 Flow Rate FiO2 02/09/25 12:51 86/38 02/09/25 10:45 57 9 97 02/09/25 08:00 97.8 97.8 02/09/25 07:30 Room Air* 0 21 Intake/Output Intake and Output 02/09/25 07:00 Intake Total 144.625 ml Output Total 250 ml Balance -105.375 ml Intake Oral 100 ml IV Total 44.625 ml Output Urine Total 250 ml Medications Current Medications Medications Dose Ordered Sig/Homer Route Start Time Stop Time Status Last Admin Dose Admin Apixaban 5 mg BID PO 02/09/25 10:00 02/09/25 10:18 5 MG Sodium Chloride 10 ml Q8HR IV 02/09/25 06:00 02/09/25 05:36 10 ML Acetaminophen/ Hydrocodone Bitart 1 tab Q4HP PRN PO 02/08/25 22:15 Ondansetron HCl 4 mg Q4HP PRN IV 02/08/25 22:15 02/09/25 13:04 4 MG Docusate Sodium 100 mg BIDPRN PRN PO 02/08/25 22:15 Acetaminophen 650 mg Q6HP PRN PO 02/08/25 22:15 02/09/25 05:37 650 MG Nitroglycerin 0.4 mg Q5MINP PRN SL 02/08/25 22:15 Morphine Sulfate 2 mg Q30M PRN IV 02/08/25 22:15 Dopamine HCl/ Dextrose 250 ml @ 13.125 mls/ hr Q19H3M IV 02/09/25 06:45 02/09/25 06:59 13.125 MLS/HR Furosemide 20 mg DAILY PO 02/09/25 11:40 Atorvastatin Calcium 40 mg HS PO 02/09/25 22:00 Laboratory Results Laboratory Tests 02/09/25 05:15 Chemistry Test 02/08/25 19:35 02/09/25 05:15 Calcium Level 9.5 mg/dL (8.7-10.4) 9.4 mg/dL (8.7-10.4) Magnesium Level 2.1 mg/dL (1.6-2.6) Albumin 4.2 g/dL (3.2-4.8) Total Protein 7.6 g/dL (5.7-8.2) Lipid panel Test 02/09/25 05:15 Cholesterol Level 157 mg/dL (< 200) HDL Cholesterol 59 mg/dL (40-59) Triglycerides Level 80 mg/dL (< 150) Cardiac Markers Test 02/08/25 19:35 B-Type Natriuretic Peptide 89.03 pg/mL (0-100) LFT Test 02/09/25 05:15 Alanine Aminotransferase (ALT) 11 U/L (7-40) Alkaline Phosphatase 85 U/L (46-116) Aspartate Amino Transferase (AST) 17 U/L (13-40) Total Bilirubin 0.5 mg/dL (0.2-1.0) HgA1c, TSH Test 02/09/25 05:15 Hemoglobin A1c 5.4 % A1C (<5.7) Thyroid Stimulating Hormone (TSH) 1.52 uIU/mL (0.55-4.78) Labs and/or images reviewed: Labs reviewed by me, Image(s) reviewed by me Assessment/Plan Assessment/Plan Closed left ankle fracture Sinus bradycardia Cardiomegaly with a pulmonary vascular congestion History of AFib on Eliquis and amiodarone CHF Hypertension Hypercholesterolemia History of DVT and PE on Eliquis History of CVA Acute renal injury Generalized weakness Time Spent 70 minutes Advanced care planning time 20 minutes Patient is full code Plan discussed with: Patient Date of Service: Feb 09, 2025 Billing Provider: CRISTINA SONG MD Common Visit Codes: [id number] INP/OBS CARE(HIGH) CRISTINA SONG MD Feb 09, 2025 13:40
--- NOTE | 2025-02-09 14:39 | DVHSR ---
APPROVED REPORT EXAM: Two-dimensional and M-mode echocardiogram with Doppler and color Doppler. Blood Pressure: 102/43 mmHg INDICATION CHF RISK FACTORS Height: 5' 2", Weight: 154 DIMENSIONS LVDd4.4 (3.8-5.7cm)LA (2D)4.0 (1.9-4.0cm)Aortic Root3.2 (2.0-3.7cm) LVDs3.2 (2.5-4.0cm)LA (MM) (1.9-4.0cm)Aortic Cusp Exc1.8 (1.5-2.0cm) EF (%) 53.0 (55-70%)Rt. Atrium4.0 (1.9-4.0cm)Asc. Aorta cm IVSd0.9 (0.7-1.1cm)RV (D) (1.8-2.4cm) PWd1.0 (0.7-1.1cm) Mitral Valve MitralMitral Stenosis E wave0.60m/sMV Mean GR.mmHg A wave1.00m/sMV Peak GR.mmHg E/A ratio0.62D MVAcm2 Aortic Valve Aortic ValveAortic Stenosis V11.10m/Xavier Mean GR.6mmHg V21.70m/Xavier Peak GR.12mmHg LVOT Diameter2.3 (1.8-2.4cm)Doppler AVA2.69cm2 Pulmonic Valve V20.60m/s Tricuspid Valve TR Velocity2.20m/s [id number] Other Information Quality : Technically LimitedRhythm : Technically limited study due to body habitus, patient with broken foot and can not turn. Conclusion LV EF IS 65% AND IS NORMAL SLIGHTLY DILATED LA POSTERIOR MITRAL LEAFLET IS CALCIFIED NORMAL TV,PV AND AORTIC LEAFLET NO EFFUSION MODERATELY DILATED RV AND RA
--- NOTE | 2025-02-09 15:20 | DVHINCON2 ---
Date of service: Feb 09, 2025 Referring Physician ED Reason for Consultation Left ankle fracture History of Present Illness The patient is a 79 year female with past medical history of AFib, CHF, CVA, hyperlipidemia, and hypertension who presented to [facility] with complaint of left ankle pain. Patient reports that she had a mechanical fall yesterday at noon, twisting her left ankle in the process and since then she has been experiencing pain and swelling. Please see medication orders section in the computer. On my assessment, patient denied chest pain, no headache, no dizziness, no diaphoresis, no shortness of breaths, no nausea, no vomiting, no fever, no chills. Patient was noted to have significant bradycardia for which she is currently undergoing cardiology management. Patient was admitted for further evaluation and medical management. Patient is normally independent in all activities of daily living. Past Medical History AFIB, CHF, CVA, High Lipids, HTN Past Surgical History Rt shoulder surgery Family History Reviewed, noncontributory to the management of this case. Past Social History The patient lives at home, denies smoking, alcohol or illicit drugs abuse. Family History: Diabetes mellitus G8 MOTHER Allergies: Coded Allergies: No Known Drug Allergy (Verified Allergy, Unknown, 04/22/22) Home Meds Reported Medications Amiodarone Hcl (Amiodarone Hcl) 200 Mg Tab, 200 MG PO Q12HR for 30 Days 02/09/25 Furosemide (Furosemide) 20 Mg Tab, 20 MG PO DAILY for 30 Days, MG 02/09/25 Empagliflozin (Jardiance) 10 Mg Tab, 10 MG PO, TAB 02/09/25 Lisinopril (Lisinopril) 40 Mg Tab, 40 MG PO DAILY for 30 Days, MG 02/09/25 Spironolactone (Spironolactone) 25 Mg Tab, 1 TAB PO DAILY, #30 TAB 5 Refills 02/09/25 Atorvastatin Calcium (Lipitor) 40 Mg Tab, 1 TAB PO DAILY, #30 TAB 5 Refills 02/09/25 Amlodipine Besylate (Amlodipine Besylate) 5 Mg Tab, 10 MG PO DAILY for 30 Days, MG 02/09/25 Gabapentin (Gabapentin) 100 Mg Cap, 100 MG PO TID 02/09/25 Current Medications Current Medications Medications (Trade) Dose Ordered Sig/Homer Route PRN Reason Start Time Stop Time Status Last Admin Amiodarone HCl (Cordarone Tablet) 200 mg Q12HR PO 02/09/25 10:00 02/08/25 22:36 DC Atorvastatin Calcium (Lipitor) 20 mg HS PO 02/09/25 22:00 02/09/25 11:41 DC Apixaban (Eliquis) 5 mg BID PO 02/09/25 10:00 02/09/25 10:18 Sodium Chloride (Saline Lock Ns) 10 ml Q8HR IV 02/09/25 06:00 02/09/25 05:36 Acetaminophen/ Hydrocodone Bitart ([place] 5/325MG Tab) 1 tab Q4HP PRN PO MODERATE PAIN (4-6 PAIN SCALE) 02/08/25 22:15 Ondansetron HCl (Zofran) 4 mg Q4HP PRN IV NAUSEA / VOMITING 02/08/25 22:15 02/09/25 13:04 Docusate Sodium (Colace Capsule) 100 mg BIDPRN PRN PO FOR CONSTIPATION 02/08/25 22:15 Acetaminophen (Tylenol Tablet) 650 mg Q6HP PRN PO PAIN SCALE 1-3 OR TEMP>100.4 02/08/25 22:15 02/09/25 05:37 Nitroglycerin (Ntrostat Sublingual) 0.4 mg Q5MINP PRN SL FOR CHEST PAIN 02/08/25 22:15 Morphine Sulfate 2 mg Q30M PRN IV FOR CHEST PAIN 02/08/25 22:15 Dopamine HCl/ Dextrose 250 ml @ 13.125 mls/ hr Q19H3M IV 02/09/25 02:00 02/09/25 06:45 DC 02/09/25 02:09 Dopamine HCl/ Dextrose 250 ml @ 13.125 mls/ hr Q19H3M IV 02/09/25 06:45 02/09/25 06:59 Furosemide (Lasix Tablet) 20 mg DAILY PO 02/09/25 11:40 Atorvastatin Calcium (Lipitor) 40 mg HS PO 02/09/25 22:00 Review of Systems Negative on 10 point review except as above Vital Signs Vital Signs Date Time Temp Pulse Resp B/P (MAP) Pulse Ox O2 Delivery O2 Flow Rate FiO2 02/09/25 12:51 86/38 02/09/25 10:45 57 9 97 02/09/25 08:00 97.8 97.8 02/09/25 07:30 Room Air* 0 21 Physical Exam Well-developed well-nourished female in no acute distress Alert and oriented x4 She has some edema of the left ankle. Skin intact. Tender to palpation over the lateral malleolus Sensation subjectively intact She is able to demonstrate some limited active dorsiflexion and plantar flexion at the ankle 2+ DP pulse Two views left ankle reveal a nondisplaced lateral malleolus fracture Labs/Diagnostic Data Labs Test 02/09/25 05:15 02/08/25 20:40 02/08/25 19:35 Range/Units White Blood Count 6.8 # 4.4-10.8 10^3/uL Red Blood Count 4.42 4.0-5.20 10^6/uL Hemoglobin 13.6 12.2-16.2 g/dL Hematocrit 40.4 36.0-46.0 % Mean Corpuscular Volume 91.5 80.0-100.0 fL Mean Corpuscular Hemoglobin 30.8 28.0-32.0 pg Mean Corpuscular Hemoglobin Concent 33.6 32.0-36.0 g/dL Red Cell Distribution Width 15.9 H 11.8-14.3 % Platelet Count 307 140-450 10^3/uL Mean Platelet Volume 8.3 6.9-10.8 fL Neutrophils (%) (Auto) 66.7 37.0-80.0 % Lymphocytes (%) (Auto) 22.8 10.0-50.0 % Monocytes (%) (Auto) 8.4 0.0-12.0 % Eosinophils (%) (Auto) 1.5 0.0-7.0 % Basophils (%) (Auto) 0.6 0.0-2.0 % Neutrophils # (Auto) 4.5 1.6-8.6 10 ^3/uL Lymphocytes # (Auto) 1.5 0.4-5.4 10 ^3/uL Monocytes # (Auto) 0.6 0-1.3 10 ^3/uL Eosinophils # (Auto) 0.1 0-0.8 10 ^3/uL Basophils # (Auto) 0 0-0.2 10 ^3/uL Nucleated Red Blood Cells 0.1 % Sodium Level 141 136-145 mmol/L Potassium Level 4.3 3.5-5.1 mmol/L Chloride Level 105 98-107 mmol/L Carbon Dioxide Level 26 20-31 mmol/L Anion Gap 10 5-15 Blood Urea Nitrogen 21 9-23 mg/dL Creatinine 1.68 H 0.550-1.02 mg/dL Glomerular Filtration Rate Calc 31 >90 mL/min BUN/Creatinine Ratio 12.5 10.0-20.0 Serum Glucose 100 74-106 mg/dL Hemoglobin A1c 5.4 <5.7 % A1C Calcium Level 9.4 8.7-10.4 mg/dL Total Bilirubin 0.5 0.2-1.0 mg/dL Aspartate Amino Transferase (AST) 17 13-40 U/L Alanine Aminotransferase (ALT) 11 7-40 U/L Alkaline Phosphatase 85 46-116 U/L Total Protein 7.6 5.7-8.2 g/dL Albumin 4.2 3.2-4.8 g/dL Triglycerides Level 80 < 150 mg/dL Cholesterol Level 157 < 200 mg/dL LDL Cholesterol 86 < 100 mg/dL HDL Cholesterol 59 40-59 mg/dL Thyroid Stimulating Hormone (TSH) 1.52 0.55-4.78 uIU/mL Troponin I High Sensitivity 7 </=34 ng/L Magnesium Level 2.1 1.6-2.6 mg/dL B-Type Natriuretic Peptide 89.03 0-100 pg/mL Assessment Acute nondisplaced left ankle lateral malleolus fracture Plan/Recommendation For now, I recommend that a left lower extremity short leg splint be applied. If the patient is still here on Tuesday we can provide her with a walking boot. Once she has the boot she will be allowed to weightbear as tolerated with walker. Follow up Dr. Clark in two weeks. There is no indication for surgical intervention. Plan discussed with: Patient, Other (nurse) CHALO CLARK MD Feb 09, 2025 15:20
--- NOTE | 2025-02-09 20:00 | DVHINCON2 ---
Date Seen: Feb 09, 2025 Referring Physician ANA LILIA Harris Reason for Consultation Bradycardia History of Present Illness This is a 79-year-old female with apast medical history of atrial fibrillation on Eliquis and amiodarone, prior CVA, right lower extremity DVT, PE, hyperlipidemia, hypertension, and CHF, presents via EMS with a complaint of left ankle pain. Patient reports a mechanical fall two days ago, with progressive an kle pain prompting ED visit. She was found to have a left ankle fracture. Incidentally she was noted to be bradycardic with heart rate as low as 38, prompting cardiology consultation. Patient was started on dopamine infusion at five mcg/min, with rhythm now sustained sinus bradycardia in 60s. Patient is alert and oriented x3 and denies dizziness, syncope, shortness of breath, chest pain, or palpitations. She reports being evaluated at [facility] a few weeks ago for bradycardia, during which she wore a Holter monitor. 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 Reddy, in two days to discuss the results. Past Medical History Past Surgical History Right shoulder surgery Family History: Diabetes mellitus G8 MOTHER Allergies: Coded Allergies: No Known Drug Allergy (Verified Allergy, Unknown, 04/22/22) Home Meds Reported Medications Amiodarone Hcl (Amiodarone Hcl) 200 Mg Tab, 200 MG PO Q12HR for 30 Days 02/09/25 Furosemide (Furosemide) 20 Mg Tab, 20 MG PO DAILY for 30 Days, MG 02/09/25 Empagliflozin (Jardiance) 10 Mg Tab, 10 MG PO, TAB 02/09/25 Lisinopril (Lisinopril) 40 Mg Tab, 40 MG PO DAILY for 30 Days, MG 02/09/25 Spironolactone (Spironolactone) 25 Mg Tab, 1 TAB PO DAILY, #30 TAB 5 Refills 02/09/25 Atorvastatin Calcium (Lipitor) 40 Mg Tab, 1 TAB PO DAILY, #30 TAB 5 Refills 02/09/25 Amlodipine Besylate (Amlodipine Besylate) 5 Mg Tab, 10 MG PO DAILY for 30 Days, MG 02/09/25 Gabapentin (Gabapentin) 100 Mg Cap, 100 MG PO TID 02/09/25 Current Medications Current Medications Medications (Trade) Dose Ordered Sig/Homer Route PRN Reason Start Time Stop Time Status Last Admin Amiodarone HCl (Cordarone Tablet) 200 mg Q12HR PO 02/09/25 10:00 02/08/25 22:36 DC Atorvastatin Calcium (Lipitor) 20 mg HS PO 02/09/25 22:00 02/09/25 11:41 DC Apixaban (Eliquis) 5 mg BID PO 02/09/25 10:00 02/09/25 10:18 Sodium Chloride (Saline Lock Ns) 10 ml Q8HR IV 02/09/25 06:00 02/09/25 05:36 Acetaminophen/ Hydrocodone Bitart (Merrick 5/325MG Tab) 1 tab Q4HP PRN PO MODERATE PAIN (4-6 PAIN SCALE) 02/08/25 22:15 Ondansetron HCl (Zofran) 4 mg Q4HP PRN IV NAUSEA / VOMITING 02/08/25 22:15 Docusate Sodium (Colace Capsule) 100 mg BIDPRN PRN PO FOR CONSTIPATION 02/08/25 22:15 Acetaminophen (Tylenol Tablet) 650 mg Q6HP PRN PO PAIN SCALE 1-3 OR TEMP>100.4 02/08/25 22:15 02/09/25 05:37 Nitroglycerin (Ntrostat Sublingual) 0.4 mg Q5MINP PRN SL FOR CHEST PAIN 02/08/25 22:15 Morphine Sulfate 2 mg Q30M PRN IV FOR CHEST PAIN 02/08/25 22:15 Dopamine HCl/ Dextrose 250 ml @ 13.125 mls/ hr Q19H3M IV 02/09/25 02:00 02/09/25 06:45 DC 02/09/25 02:09 Dopamine HCl/ Dextrose 250 ml @ 13.125 mls/ hr Q19H3M IV 02/09/25 06:45 02/09/25 06:59 Furosemide (Lasix Tablet) 20 mg DAILY PO 02/09/25 11:40 Atorvastatin Calcium (Lipitor) 40 mg HS PO 02/09/25 22:00 Review of Systems Constitutional: No symptom reported Ears, Nose, & Throat: No symptom reported Eyes: No symptom reported Neurological: No symptoms reported Pulmonary/Respiratory: No symptom reported Cardiovascular: Bradycardia Gastrointestinal: No symptom reported Genitourinary: No symptom reported Musculoskeletal: Left ankle pain Skin: No symptom reported Psychiatric: No symptom reported Endocrine: No symptom reported Hemotologic/Lymphatic: No symptom reported Vital Signs Vital Signs Date Time Temp Pulse Resp B/P (MAP) Pulse Ox O2 Delivery O2 Flow Rate FiO2 02/09/25 10:45 57 9 94/43 (60) 97 02/09/25 08:00 97.8 97.8 02/09/25 07:30 Room Air* 0 21 Physical Exam GENERAL: Alert and oriented x 3. No acute distress. EYES: PERRL, EOMI. Anicteric. HENT: Moist mucous membranes. LUNGS: Clear to auscultation bilaterally. CARDIOVASCULAR: Regular rate and rhythm. ABDOMEN: Soft, nontender and nondistended. EXTREMITIES: eft ankle swelling and tenderness, limited range of motion. NEUROLOGIC: No focal neurological deficits. SKIN: Warm, dry. Labs/Diagnostic Data Labs Test 02/09/25 05:15 02/08/25 20:40 02/08/25 19:35 Range/Units White Blood Count 6.8 # 4.4-10.8 10^3/uL Red Blood Count 4.42 4.0-5.20 10^6/uL Hemoglobin 13.6 12.2-16.2 g/dL Hematocrit 40.4 36.0-46.0 % Mean Corpuscular Volume 91.5 80.0-100.0 fL Mean Corpuscular Hemoglobin 30.8 28.0-32.0 pg Mean Corpuscular Hemoglobin Concent 33.6 32.0-36.0 g/dL Red Cell Distribution Width 15.9 H 11.8-14.3 % Platelet Count 307 140-450 10^3/uL Mean Platelet Volume 8.3 6.9-10.8 fL Neutrophils (%) (Auto) 66.7 37.0-80.0 % Lymphocytes (%) (Auto) 22.8 10.0-50.0 % Monocytes (%) (Auto) 8.4 0.0-12.0 % Eosinophils (%) (Auto) 1.5 0.0-7.0 % Basophils (%) (Auto) 0.6 0.0-2.0 % Neutrophils # (Auto) 4.5 1.6-8.6 10 ^3/uL Lymphocytes # (Auto) 1.5 0.4-5.4 10 ^3/uL Monocytes # (Auto) 0.6 0-1.3 10 ^3/uL Eosinophils # (Auto) 0.1 0-0.8 10 ^3/uL Basophils # (Auto) 0 0-0.2 10 ^3/uL Nucleated Red Blood Cells 0.1 % Sodium Level 141 136-145 mmol/L Potassium Level 4.3 3.5-5.1 mmol/L Chloride Level 105 98-107 mmol/L Carbon Dioxide Level 26 20-31 mmol/L Anion Gap 10 5-15 Blood Urea Nitrogen 21 9-23 mg/dL Creatinine 1.68 H 0.550-1.02 mg/dL Glomerular Filtration Rate Calc 31 >90 mL/min BUN/Creatinine Ratio 12.5 10.0-20.0 Serum Glucose 100 74-106 mg/dL Hemoglobin A1c 5.4 <5.7 % A1C Calcium Level 9.4 8.7-10.4 mg/dL Total Bilirubin 0.5 0.2-1.0 mg/dL Aspartate Amino Transferase (AST) 17 13-40 U/L Alanine Aminotransferase (ALT) 11 7-40 U/L Alkaline Phosphatase 85 46-116 U/L Total Protein 7.6 5.7-8.2 g/dL Albumin 4.2 3.2-4.8 g/dL Triglycerides Level 80 < 150 mg/dL Cholesterol Level 157 < 200 mg/dL LDL Cholesterol 86 < 100 mg/dL HDL Cholesterol 59 40-59 mg/dL Thyroid Stimulating Hormone (TSH) 1.52 0.55-4.78 uIU/mL Troponin I High Sensitivity 7 </=34 ng/L Magnesium Level 2.1 1.6-2.6 mg/dL B-Type Natriuretic Peptide 89.03 0-100 pg/mL Assessment Sinus bradycardia--possible Medication-related bradycardia. Cardiomegaly with pulmonary vascular congestion. History of AFib on Eliquis and amiodarone. CHF. Hypertension. Hyperlipidemia. History of DVT and PE on Eliquis. History of CVA. Plan/Recommendation I agree with your ongoing assessment and care of plan. Patient has been seen by Sera Stern NP on my behalf, her/him and I discussed the plan with the patient. Hold carvedilol. Continue amiodarone with close monitoring. Dopamine infusion for heart rate support, wean off as tolerated. Telemetry monitoring for sustained bradyarrhythmias. Echocardiogram to assess LV function, valvular disease, wall motion abnormalities. Obtain medical record from [facility]. We will consider EP evaluation for pacemaker if bradycardia persists. Continue with diuretics and statins. Close cardiac surveillance. Additional plan as per the hospital course. Plan discussed with: Patient NYHA Physical activity limitations: Class2(Slight)fatigue,sob Date of Service: Feb 09, 2025 Billing Provider: ANDREA BECKMAN MD Cardiology Common Codes: [id number] INP/OBS CARE (High) Cardiology Consultation Codes: [id number] CONSULT <45MIN ANDREA BECKMAN MD Feb 09, 2025 12:39
[2025-02-09] MEDS: ATORVASTATIN 20 MG TAB PO SCH (21:19)
[2025-02-09] MEDS: DOCUSATE SOD 100 MG CAP PO PRN (21:19)
[2025-02-09 21:58] LABS: INR 1.21 (0.9-1.15); Partial Thromboplastin Time 32.0 SEC (24.5-34.5); Prothrombin Time 12.6 sec (9.3-11.8)
[2025-02-09] MEDS ORDERED: ATORVASTATIN 20 MG TAB PO SCH (22:00)
[2025-02-09 22:05] LABS: Hematocrit 37.5 % (36.0-46.0); Hemoglobin 12.3 g/dL (12.2-16.2); Mean Corpuscular Hemoglobin 30.1 pg (28.0-32.0); Mean Corpuscular Volume 92.0 fL (80.0-100.0); Nucleated Red Blood Cells % 0.1 %
[2025-02-09 22:15] LABS: Alanine Aminotransferase 10 U/L (7-40); Albumin 3.9 g/dL (3.2-4.8); Alkaline Phosphatase 77 U/L (46-116); Anion Gap 10 (5-15); BUN/Creatinine Ratio 12.9 (10.0-20.0); Blood Urea Nitrogen 22 mg/dL (9-23); Calcium 9.3 mg/dL (8.7-10.4); Carbon Dioxide 24 mmol/L (20-31); Chloride 104 mmol/L (98-107); Potassium 5.1 mmol/L (3.5-5.1); Sodium 138 mmol/L (136-145); Total Protein 7.0 g/dL (5.7-8.2)
[2025-02-09 22:16] LABS: Bilirubin, Total 0.4 mg/dL (0.2-1.0); Glucose 129 mg/dL (74-106)
[2025-02-10] VITALS (93 sets, daily range): BP systolic 88–148; BP diastolic 34–103; PULSE 43–67; RESP 10–21; TEMP 97.7–98.8; O2SAT 84–100
--- NOTE | 2025-02-10 11:03 | DVHPN2 ---
Reviewed: Care Plan, H&P, Medications, Previous Orders, Radiology Changes from previous H/P or p: No Changes Eyes: No Pain, No Vision change, No Conjunctivae inflammation, No Eyelid inflammation, No Other, No Redness ENT: No Ear pain, No Ear discharge, No Nose pain, No Nose discharge, No Nose congestion, No Mouth pain, No Mouth swelling, No Throat pain, No Throat swelling, No Other Cardiovascular: No Chest Pain, No Palpitations, No Orthopnea, No Paroxysmal Noc. Dyspnea, No Edema, No Lt Headedness, No Other Respiratory: No Cough, No Dry, No Shortness of breath, No SOB with excertion, No Wheezing, No Hemoptysis, No Pleuritic Pain, No Sputum, No Other Gastrointestinal: No Nausea, No Vomiting, No Abdominal Pain, No Diarrhea, No Constipation, No Melena, No Hematochezia, No Other Genitourinary: No Dysuria, No Frequency, No Incontinence, No Hematuria, No Retention, No Other Musculoskeletal: other (Lt ankle pain); No neck pain, No shoulder pain, No arm pain, No back pain, No hand pain, No leg pain, No foot pain Skin: No Rash, No Lesions, No Jaundice, No Bruising, No Other Objective Vitals Vital Signs Date Time Temp Pulse Resp B/P (MAP) Pulse Ox O2 Delivery O2 Flow Rate FiO2 02/10/25 10:17 138/50 02/10/25 10:15 60 11 96 02/10/25 08:00 97.9 97.9 02/10/25 08:00 Room Air* 0 21 Intake/Output Intake and Output 02/10/25 07:00 Intake Total 1228.125 ml Output Total 950 ml Balance 278.125 ml Intake Oral 900 ml IV Total 328.125 ml Output Urine Total 950 ml Medications Current Medications Medications Dose Ordered Sig/Homer Route Start Time Stop Time Status Last Admin Dose Admin Apixaban 5 mg BID PO 02/09/25 10:00 02/10/25 10:17 5 MG Sodium Chloride 10 ml Q8HR IV 02/09/25 06:00 02/10/25 05:38 10 ML Acetaminophen/ Hydrocodone Bitart 1 tab Q4HP PRN PO 02/08/25 22:15 Ondansetron HCl 4 mg Q4HP PRN IV 02/08/25 22:15 02/09/25 13:04 4 MG Docusate Sodium 100 mg BIDPRN PRN PO 02/08/25 22:15 02/09/25 21:19 100 MG Acetaminophen 650 mg Q6HP PRN PO 02/08/25 22:15 02/09/25 20:15 650 MG Nitroglycerin 0.4 mg Q5MINP PRN SL 02/08/25 22:15 Morphine Sulfate 2 mg Q30M PRN IV 02/08/25 22:15 Dopamine HCl/ Dextrose 250 ml @ 13.125 mls/ hr Q19H3M IV 02/09/25 06:45 02/09/25 22:28 13.125 MLS/HR Furosemide 20 mg DAILY PO 02/09/25 11:40 02/10/25 10:17 20 MG Atorvastatin Calcium 40 mg HS PO 02/09/25 22:00 02/09/25 21:19 40 MG Laboratory Results Laboratory Tests 02/09/25 21:18 Chemistry Test 02/09/25 21:18 Albumin 3.9 g/dL (3.2-4.8) Calcium Level 9.3 mg/dL (8.7-10.4) Total Protein 7.0 g/dL (5.7-8.2) Coagulation Test 02/09/25 21:18 Prothrombin Time 12.6 sec (9.3-11.8) H Prothrombin Time INR 1.21 (0.9-1.15) H Activated Partial Thromboplast Time 32.0 SEC (24.5-34.5) LFT Test 02/09/25 21:18 Alanine Aminotransferase (ALT) 10 U/L (7-40) Alkaline Phosphatase 77 U/L (46-116) Aspartate Amino Transferase (AST) 16 U/L (13-40) Total Bilirubin 0.4 mg/dL (0.2-1.0) Labs and/or images reviewed: Labs reviewed by me, Image(s) reviewed by me Assessment/Plan Assessment/Plan Closed left ankle fracture: Short-leg splint/walking boot, no surgical intervention required per Dr. Coleman Sinus bradycardia cardiology consult by Dr.M Dorsey appreciated, planning for pacemaker AICD and left heart catheterization on Tuesday Cardiomegaly with a pulmonary vascular congestion History of AFib on Eliquis and amiodarone CHF Hypertension Hypercholesterolemia History of DVT and PE on Eliquis History of CVA Acute renal injury Generalized weakness Time Spent 50 minutes Advanced care planning time 20 minutes Patient is full code Plan discussed with: Patient Date of Service: Feb 10, 2025 Billing Provider: CRISTINA SONG MD Common Visit Codes: [id number] INP/OBS CARE(HIGH) CRISTINA SONG MD Feb 10, 2025 11:03
--- NOTE | 2025-02-10 23:34 | DVHPN2 ---
Progress Note - Dictate Date Seen: Feb 10, 2025 Medical Necessity Reason Pt with a Central, PICC or Fol: No Subjective Patient was seen and evaluated in follow up in the [facility]. Patient is complaining of left ankle pain. Patient is planned for PPM insertion on 02/12. Risks and benefits were discussed with the patient. vital signs Vital Sign Date Time Temp Pulse Resp B/P (MAP) Pulse Ox O2 Delivery O2 Flow Rate FiO2 02/10/25 18:36 124/58 02/10/25 18:30 59 14 93 02/10/25 16:00 97.8 97.8 02/10/25 08:00 Room Air* 0 21 Total Intake and Output 02/09/25 02/09/25 02/10/25 15:00 23:00 07:00 Intake Total 105.000 ml 605.000 ml 518.125 ml Output Total 400 ml 550 ml Balance 105.000 ml 205.000 ml -31.875 ml medications Current Medications Medications Dose Ordered Sig/Homer Route Start Time Stop Time Status Last Admin Dose Admin Apixaban 5 mg BID PO 02/09/25 10:00 02/10/25 10:17 5 MG Sodium Chloride 10 ml Q8HR IV 02/09/25 06:00 02/10/25 14:00 10 ML Acetaminophen/ Hydrocodone Bitart 1 tab Q4HP PRN PO 02/08/25 22:15 Ondansetron HCl 4 mg Q4HP PRN IV 02/08/25 22:15 02/09/25 13:04 4 MG Docusate Sodium 100 mg BIDPRN PRN PO 02/08/25 22:15 02/09/25 21:19 100 MG Acetaminophen 650 mg Q6HP PRN PO 02/08/25 22:15 02/10/25 15:12 650 MG Nitroglycerin 0.4 mg Q5MINP PRN SL 02/08/25 22:15 Morphine Sulfate 2 mg Q30M PRN IV 02/08/25 22:15 Dopamine HCl/ Dextrose 250 ml @ 13.125 mls/ hr Q19H3M IV 02/09/25 06:45 02/10/25 18:36 13.125 MLS/HR Furosemide 20 mg DAILY PO 02/09/25 11:40 02/10/25 10:17 20 MG Atorvastatin Calcium 40 mg HS PO 02/09/25 22:00 02/09/25 21:19 40 MG objective GENERAL: Alert and oriented x 3. No acute distress. EYES: PERRL, EOMI. Anicteric. HENT: Moist mucous membranes. LUNGS: Clear to auscultation bilaterally. CARDIOVASCULAR: Regular rate and rhythm. ABDOMEN: Soft, nontender and nondistended. EXTREMITIES: Left ankle swelling and tenderness, limited range of motion. NEUROLOGIC: No focal neurological deficits. SKIN: Warm, dry. laboratory and microbiology Laboratory Tests 02/09/25 21:18 Test 02/09/25 21:18 Range/Units Serum Glucose 129 H 74-106 mg/dL Problem List Sinus bradycardia--possible Medication-related bradycardia. Cardiomegaly with pulmonary vascular congestion. History of AFib on Eliquis and amiodarone. CHF. Hypertension. Hyperlipidemia. History of DVT and PE on Eliquis. History of CVA. Assessment/Plan Continued all current supportive medical care. PPM insertion 02/12. Morphine and [place] for pain management. Eliquis. Lipitor. Dopamine drip. Diuretics with Lasix. Nitro SL. Additional plan as per the hospital course. Critical care time of 45 minutes provided to include time spent evaluation of patient at bedside, when appropriate patient/family education for diagnosis, treatment plan, review of pertinent medical information and discussion of care with specialty providers and PCP. Plan discussed with: Patient ANDREA BECKMAN MD Feb 10, 2025 18:44
[2025-02-10] MEDS: MELATONIN 5 MG TAB PO SCH (23:45)
[2025-02-11] VITALS (84 sets, daily range): BP systolic 90–142; BP diastolic 17–115; PULSE 57–69; RESP 10–22; TEMP 98–98.8; O2SAT 91–100
[2025-02-11 06:43] LABS: Albumin 4.0 g/dL (3.2-4.8); Alkaline Phosphatase 73 U/L (46-116); Anion Gap 11 (5-15); BUN/Creatinine Ratio 12.3 (10.0-20.0); Blood Urea Nitrogen 20 mg/dL (9-23); Calcium 9.3 mg/dL (8.7-10.4); Carbon Dioxide 24 mmol/L (20-31); Chloride 103 mmol/L (98-107); Potassium 4.4 mmol/L (3.5-5.1); Sodium 138 mmol/L (136-145); Total Protein 7.2 g/dL (5.7-8.2)
[2025-02-11 06:44] LABS: Alanine Aminotransferase < 9 U/L (7-40); Bilirubin, Total 0.5 mg/dL (0.2-1.0); Glucose 115 mg/dL (74-106)
[2025-02-11 09:46] LABS: Urine Protein, UAD 1+ (Negative)
[2025-02-11 09:48] LABS: Hematocrit 37.0 % (36.0-46.0); Hemoglobin 12.5 g/dL (12.2-16.2); Mean Corpuscular Hemoglobin 30.9 pg (28.0-32.0); Mean Corpuscular Volume 91.7 fL (80.0-100.0); Nucleated Red Blood Cells % 0.1 %
[2025-02-11 10:01] LABS: Alanine Aminotransferase 10 U/L (7-40); Albumin 4.0 g/dL (3.2-4.8); Alkaline Phosphatase 75 U/L (46-116); Anion Gap 9 (5-15); BUN/Creatinine Ratio 9.3 (10.0-20.0); Blood Urea Nitrogen 15 mg/dL (9-23); Calcium 9.5 mg/dL (8.7-10.4); Carbon Dioxide 24 mmol/L (20-31); Chloride 103 mmol/L (98-107); Magnesium 2.0 mg/dL (1.6-2.6); Potassium 4.7 mmol/L (3.5-5.1); Sodium 136 mmol/L (136-145); Total Protein 7.4 g/dL (5.7-8.2)
[2025-02-11 10:02] LABS: Bilirubin, Total 0.5 mg/dL (0.2-1.0); Glucose 132 mg/dL (74-106)
[2025-02-11] MEDS: LIDOCAINE 1% (LOCAL ANESTH.) PF 5ml SDV ID ONE (12:48)
--- NOTE | 2025-02-11 13:30 | DVH ---
CHEST RADIOGRAPH Indication: S/P PICC LINE PLACEMENT Technique: XY CHEST PORTABLE Comparison: None FINDINGS: Right PICC line tip projects over the SVC. The cardiac silhouette is unremarkable. The lungs demonstrate no pulmonary airspace consolidation. Th e pulmonary vasculature is mildly prominent. There is no pleural effusion. There is no pneumothorax. IMPRESSION: Mild pulmonary vascular congestion.
--- NOTE | 2025-02-11 14:26 | DVHPN2 ---
Reviewed: Care Plan, H&P, Medications, Previous Orders, Radiology Changes from previous H/P or p: No Changes Eyes: No Pain, No Vision change, No Conjunctivae inflammation, No Eyelid inflammation, No Other, No Redness ENT: No Ear pain, No Ear discharge, No Nose pain, No Nose discharge, No Nose congestion, No Mouth pain, No Mouth swelling, No Throat pain, No Throat swelling, No Other Cardiovascular: No Chest Pain, No Palpitations, No Orthopnea, No Paroxysmal Noc. Dyspnea, No Edema, No Lt Headedness, No Other Respiratory: No Cough, No Dry, No Shortness of breath, No SOB with excertion, No Wheezing, No Hemoptysis, No Pleuritic Pain, No Sputum, No Other Gastrointestinal: No Nausea, No Vomiting, No Abdominal Pain, No Diarrhea, No Constipation, No Melena, No Hematochezia, No Other Genitourinary: No Dysuria, No Frequency, No Incontinence, No Hematuria, No Retention, No Other Musculoskeletal: other (Lt ankle pain); No neck pain, No shoulder pain, No arm pain, No back pain, No hand pain, No leg pain, No foot pain Skin: No Rash, No Lesions, No Jaundice, No Bruising, No Other Objective Vitals Vital Signs Date Time Temp Pulse Resp B/P (MAP) Pulse Ox O2 Delivery O2 Flow Rate FiO2 02/11/25 12:00 62 18 127/44 (71) 98 02/11/25 08:00 98.3 98.3 02/11/25 08:00 Room Air* 0 21 Intake/Output Intake and Output 02/11/25 07:00 Intake Total 945.000 ml Output Total 1550 ml Balance -605.000 ml Intake Oral 630 ml IV Total 315.000 ml Output Urine Total 1550 ml Medications Current Medications Medications Dose Ordered Sig/Homer Route Start Time Stop Time Status Last Admin Dose Admin Apixaban 5 mg BID PO 02/09/25 10:00 02/11/25 11:28 5 MG Acetaminophen/ Hydrocodone Bitart 1 tab Q4HP PRN PO 02/08/25 22:15 Ondansetron HCl 4 mg Q4HP PRN IV 02/08/25 22:15 02/09/25 13:04 4 MG Docusate Sodium 100 mg BIDPRN PRN PO 02/08/25 22:15 02/09/25 21:19 100 MG Acetaminophen 650 mg Q6HP PRN PO 02/08/25 22:15 02/10/25 15:12 650 MG Nitroglycerin 0.4 mg Q5MINP PRN SL 02/08/25 22:15 Morphine Sulfate 2 mg Q30M PRN IV 02/08/25 22:15 Dopamine HCl/ Dextrose 250 ml @ 13.125 mls/ hr Q19H3M IV 02/09/25 06:45 02/11/25 11:31 13.125 MLS/HR Furosemide 20 mg DAILY PO 02/09/25 11:40 02/11/25 11:29 20 MG Atorvastatin Calcium 40 mg HS PO 02/09/25 22:00 02/10/25 21:32 40 MG Melatonin 10 mg HS PO 02/10/25 23:45 Sodium Chloride 10 ml QSHIFT@10,22 IV 02/11/25 22:00 Laboratory Results Laboratory Tests 02/11/25 09:27 Chemistry Test 02/11/25 06:05 02/11/25 09:27 Albumin 4.0 g/dL (3.2-4.8) 4.0 g/dL (3.2-4.8) Calcium Level 9.3 mg/dL (8.7-10.4) 9.5 mg/dL (8.7-10.4) Total Protein 7.2 g/dL (5.7-8.2) 7.4 g/dL (5.7-8.2) Magnesium Level 2.0 mg/dL (1.6-2.6) LFT Test 02/11/25 06:05 02/11/25 09:27 Alanine Aminotransferase (ALT) < 9 U/L (7-40) 10 U/L (7-40) Alkaline Phosphatase 73 U/L (46-116) 75 U/L (46-116) Aspartate Amino Transferase (AST) 12 U/L (13-40) L 17 U/L (13-40) Total Bilirubin 0.5 mg/dL (0.2-1.0) 0.5 mg/dL (0.2-1.0) Urinalysis Test 02/11/25 09:30 Urine Color Yellow (Yellow) Urine Clarity Cloudy (Clear) H Urine pH 8.0 (5.0-9.0) Urine Specific Elliott 1.013 (1.001-1.035) Urine Protein 1+ (Negative) H Urine Ketones Negative (Negative) Urine Blood 3+ /uL (Negative) H Urine Nitrite Negative (Negative) Urine Bilirubin Negative (Negative) Urine Urobilinogen Normal mg/dL (Negative) Urine Leukocyte Esterase 3+ /uL (Negative) Urine Glucose 3+ mg/dL (Normal) H Microbiology Microbiology Date/Time Source Procedure Growth Status 02/09/25 23:59 Nose MRSA Screen - Final Complete Labs and/or images reviewed: Labs reviewed by me, Image(s) reviewed by me Assessment/Plan Assessment/Plan Closed left ankle fracture: Short-leg splint/walking boot, no surgical intervention required per Dr. Coleman Sinus bradycardia cardiology consult by Dr.M Dorsey appreciated, planning for pacemaker AICD and left heart catheterization on Tuesday Cardiomegaly with a pulmonary vascular congestion History of AFib on Eliquis and amiodarone CHF Hypertension Hypercholesterolemia History of DVT and PE on Eliquis History of CVA Acute renal injury Generalized weakness Possible UTI: Levaquin 500 mg IV daily Time Spent 50 minutes Advanced care planning time 20 minutes Patient is full code Plan discussed with: Patient My Orders Orders - CRISTINA SONG MD Procedure Category Date Status Time Urine Bacterial LENNY 02/11/25 In Process Culture 09:20 * Picc Line Consult CONS 02/11/25 Transmitted 09:23 Us Guided Vascular US 02/11/25 Logged Access 12:22 Nursing Protocol Picc AJ 02/11/25 In Process 12:22 Change Dressing Prn AJ 02/11/25 In Process 12:22 PICC BD 02/11/25 Transmitted 12:22 Sodium Chloride Lock PHA 02/11/25 In Process (Saline Lock Ns) 22:00 Do Not Use Picc For AJ 02/11/25 In Process Blood Cult 12:22 May Draw Blood From AJ 02/11/25 In Process Picc 12:22 Ok To Use Picc AJ 02/11/25 In Process 12:22 Change Picc Dressing AJ 02/11/25 In Process Q7 Days 12:22 Chest Portable XY 02/11/25 Resulted 12:47 Date of Service: Feb 11, 2025 Billing Provider: CRISTINA SONG MD Common Visit Codes: [id number] INP/OBS CARE(HIGH) CRISTINA SONG MD Feb 11, 2025 14:26
[2025-02-11] MEDS: SODIUM CHLOR 0.9% PF (SALINE LOCK) 10ML VIAL/SYR IV SCH (21:08)
[2025-02-11] MEDS: TEMAZEPAM 15 MG CAP PO ONE (22:45)
--- NOTE | 2025-02-11 23:49 | DVHPN2 ---
Progress Note - Dictate Date Seen: Feb 11, 2025 Medical Necessity Reason Pt with a Central, PICC or Fol: No Subjective Patient was seen and evaluated in follow up in the [facility]. No overnight events. The patient is resting in bed. Patient is scheduled for pacemaker AICD and left heart catheterization on Tuesday. vital signs Vital Sign Date Time Temp Pulse Resp B/P (MAP) Pulse Ox O2 Delivery O2 Flow Rate FiO2 02/11/25 23:15 63 11 95 02/11/25 20:00 Room Air* 0 02/11/25 19:45 98.7 98.7 Total Intake and Output 02/10/25 02/10/25 02/11/25 15:00 23:00 07:00 Intake Total 105.000 ml 635.000 ml 205.000 ml Output Total 850 ml 700 ml Balance 105.000 ml -215.000 ml -495.000 ml medications Current Medications Medications Dose Ordered Sig/Homer Route Start Time Stop Time Status Last Admin Dose Admin Apixaban 5 mg BID PO 02/09/25 10:00 02/11/25 11:28 5 MG Acetaminophen/ Hydrocodone Bitart 1 tab Q4HP PRN PO 02/08/25 22:15 Ondansetron HCl 4 mg Q4HP PRN IV 02/08/25 22:15 02/09/25 13:04 4 MG Docusate Sodium 100 mg BIDPRN PRN PO 02/08/25 22:15 02/09/25 21:19 100 MG Acetaminophen 650 mg Q6HP PRN PO 02/08/25 22:15 02/10/25 15:12 650 MG Nitroglycerin 0.4 mg Q5MINP PRN SL 02/08/25 22:15 Morphine Sulfate 2 mg Q30M PRN IV 02/08/25 22:15 Dopamine HCl/ Dextrose 250 ml @ 13.125 mls/ hr Q19H3M IV 02/09/25 06:45 02/11/25 11:31 13.125 MLS/HR Furosemide 20 mg DAILY PO 02/09/25 11:40 02/11/25 11:29 20 MG Atorvastatin Calcium 40 mg HS PO 02/09/25 22:00 02/11/25 21:05 40 MG Melatonin 10 mg HS PO 02/10/25 23:45 02/11/25 21:05 10 MG Sodium Chloride 10 ml QSHIFT@10,22 IV 02/11/25 22:00 02/11/25 21:08 10 ML Ceftriaxone Sodium 50 ml @ 100 mls/hr DAILY@09 IV 02/11/25 15:15 02/11/25 16:03 100 MLS/HR objective GENERAL: Alert and oriented x 3. No acute distress. EYES: PERRL, EOMI. Anicteric. HENT: Moist mucous membranes. LUNGS: Clear to auscultation bilaterally. CARDIOVASCULAR: Regular rate and rhythm. ABDOMEN: Soft, nontender and nondistended. EXTREMITIES: Left ankle swelling and tenderness, limited range of motion. NEUROLOGIC: No focal neurological deficits. SKIN: Warm, dry. laboratory and microbiology Laboratory Tests 02/11/25 09:27 Test 02/11/25 09:27 Range/Units Serum Glucose 132 H 74-106 mg/dL Problem List Sinus bradycardia--possible Medication-related bradycardia. Cardiomegaly with pulmonary vascular congestion. History of AFib on Eliquis and amiodarone. CHF. Hypertension. Hyperlipidemia. History of DVT and PE on Eliquis. History of CVA. Assessment/Plan Continued all current supportive medical care. PPM insertion 02/12. Morphine and [place] for pain management. Eliquis. Lipitor. Dopamine drip. Diuretics with Lasix. Nitro SL. Additional plan as per the hospital course. Critical care time of 45 minutes provided to include time spent evaluation of patient at bedside, when appropriate patient/family education for diagnosis, treatment plan, review of pertinent medical information and discussion of care with specialty providers and PCP. Plan discussed with: Patient ANDREA BECKMAN MD Feb 11, 2025 23:49
[2025-02-11] MEDS: LORazepam 2MG/ML-1ML VIAL IV ONE (23:51)
[2025-02-12] VITALS (92 sets, daily range): BP systolic 106–145; BP diastolic 45–71; PULSE 52–70; RESP 10–22; TEMP 97.5–98.6; O2SAT 89–99
[2025-02-12 07:42] LABS: Anion Gap 9 (5-15); Carbon Dioxide 25 mmol/L (20-31); Chloride 105 mmol/L (98-107); Potassium 4.3 mmol/L (3.5-5.1); Sodium 139 mmol/L (136-145)
[2025-02-12 07:46] LABS: Hematocrit 36.2 % (36.0-46.0); Hemoglobin 12.2 g/dL (12.2-16.2); Mean Corpuscular Hemoglobin 30.9 pg (28.0-32.0); Mean Corpuscular Volume 92.0 fL (80.0-100.0); Nucleated Red Blood Cells % 0.0 %
[2025-02-12 07:48] LABS: BUN/Creatinine Ratio 12.4 (10.0-20.0); Blood Urea Nitrogen 17 mg/dL (9-23)
[2025-02-12 07:50] LABS: Glucose 113 mg/dL (74-106)
[2025-02-12 07:53] LABS: Calcium 9.1 mg/dL (8.7-10.4)
[2025-02-12 08:49] LABS: Partial Thromboplastin Time 30.8 SEC (24.5-34.5)
[2025-02-12 08:50] LABS: INR 1.12 (0.9-1.15); Prothrombin Time 11.7 sec (9.3-11.8)
--- NOTE | 2025-02-12 09:27 | DVH ---
EXAM: CT HEAD WITHOUT CONTRAST INDICATION: Confusion after fall TECHNIQUE: CT of the head without intravenous contrast. Radiation Dose : 1. Head: CT Dose: CTDI volume is 54.51 mGy. Dose-length product is 1074.37 mGy*cm The dose indicators for CT are the volume Computed Tomography (CT) Dose Index (CTDIvol) and the Dose Length Product (DLP), and are measured in units of mGy and mGy-cm, respectively. These indicators are not patient dose, but values generated from the CT scanner acquisition factors. The report includes radiation exposure data for exposures received during this examination. COMPARISON: HEAD WITHOUT CONTRAST on DOS: 04/22/22, HWOCT on DOS: 04/22/22 FINDINGS: Embolization coils along the course of the anterior cerebral artery. There is no evidence of acute intracranial hemorrhage, extra-axial collection, mass effect, midline s hift, herniation or hydrocephalus. The ventricles, sulci and cisterns are age appropriate. The shay-white differentiation is intact. Patchy periventricular and subcortical white matter hypoattenuation is nonspecific but may be related to small vessel ischemic disease. The visualized paranasal sinuses and mastoid air cells are clear. Frontal craniotomy. IMPRESSION: No acute intracranial abnormality. Radiation optimization: All CT scans at this facility use at least one of these dose optimization asiya hniques: automated exposure control mA and/or kV adjustment per patient size (includes targeted exam s where dose is matched to clinical indication) or iterative reconstruction.
--- NOTE | 2025-02-12 10:51 | DVHPN2 ---
Reviewed: Care Plan, H&P, Medications, Previous Orders, Radiology Changes from previous H/P or p: No Changes Eyes: No Pain, No Vision change, No Conjunctivae inflammation, No Eyelid inflammation, No Other, No Redness ENT: No Ear pain, No Ear discharge, No Nose pain, No Nose discharge, No Nose congestion, No Mouth pain, No Mouth swelling, No Throat pain, No Throat swelling, No Other Cardiovascular: No Chest Pain, No Palpitations, No Orthopnea, No Paroxysmal Noc. Dyspnea, No Edema, No Lt Headedness, No Other Respiratory: No Cough, No Dry, No Shortness of breath, No SOB with excertion, No Wheezing, No Hemoptysis, No Pleuritic Pain, No Sputum, No Other Gastrointestinal: No Nausea, No Vomiting, No Abdominal Pain, No Diarrhea, No Constipation, No Melena, No Hematochezia, No Other Genitourinary: No Dysuria, No Frequency, No Incontinence, No Hematuria, No Retention, No Other Musculoskeletal: other Skin: No Rash, No Lesions, No Jaundice, No Bruising, No Other Objective Vitals Vital Signs Date Time Temp Pulse Resp B/P (MAP) Pulse Ox O2 Delivery O2 Flow Rate FiO2 02/12/25 10:30 57 18 122/53 (76) 96 02/12/25 08:00 Room Air* 0 21 02/12/25 04:00 98.6 98.6 Intake/Output Intake and Output 02/12/25 07:00 Intake Total 881.875 ml Output Total 1900 ml Balance -1018.125 ml Intake Oral 530 ml IV Total 351.875 ml Output Urine Total 1900 ml Medications Current Medications Medications Dose Ordered Sig/Homer Route Start Time Stop Time Status Last Admin Dose Admin Acetaminophen/ Hydrocodone Bitart 1 tab Q4HP PRN PO 02/08/25 22:15 Ondansetron HCl 4 mg Q4HP PRN IV 02/08/25 22:15 02/09/25 13:04 4 MG Docusate Sodium 100 mg BIDPRN PRN PO 02/08/25 22:15 02/09/25 21:19 100 MG Acetaminophen 650 mg Q6HP PRN PO 02/08/25 22:15 02/10/25 15:12 650 MG Nitroglycerin 0.4 mg Q5MINP PRN SL 02/08/25 22:15 Morphine Sulfate 2 mg Q30M PRN IV 02/08/25 22:15 Dopamine HCl/ Dextrose 250 ml @ 13.125 mls/ hr Q19H3M IV 02/09/25 06:45 02/12/25 05:58 13.125 MLS/HR Furosemide 20 mg DAILY PO 02/09/25 11:40 02/11/25 11:29 20 MG Atorvastatin Calcium 40 mg HS PO 02/09/25 22:00 02/11/25 21:05 40 MG Melatonin 10 mg HS PO 02/10/25 23:45 02/11/25 21:05 10 MG Sodium Chloride 10 ml QSHIFT@10,22 IV 02/11/25 22:00 02/11/25 21:08 10 ML Ceftriaxone Sodium 50 ml @ 100 mls/hr DAILY@09 IV 02/11/25 15:15 02/12/25 08:34 100 MLS/HR Laboratory Results Laboratory Tests 02/12/25 05:31 Chemistry Test 02/12/25 05:31 Calcium Level 9.1 mg/dL (8.7-10.4) Coagulation Test 02/12/25 05:31 Prothrombin Time 11.7 sec (9.3-11.8) Prothrombin Time INR 1.12 (0.9-1.15) Activated Partial Thromboplast Time 30.8 SEC (24.5-34.5) Urinalysis Test 02/11/25 09:30 Urine Color Yellow (Yellow) Urine Clarity Cloudy (Clear) H Urine pH 8.0 (5.0-9.0) Urine Specific [place] 1.013 (1.001-1.035) Urine Protein 1+ (Negative) H Urine Ketones Negative (Negative) Urine Blood 3+ /uL (Negative) H Urine Nitrite Negative (Negative) Urine Bilirubin Negative (Negative) Urine Urobilinogen Normal mg/dL (Negative) Urine Leukocyte Esterase 3+ /uL (Negative) Urine Glucose 3+ mg/dL (Normal) H Microbiology Microbiology Date/Time Source Procedure Growth Status 02/11/25 09:30 Urine - [place] Urine Culture - Preliminary Resulted 02/09/25 23:59 Nose MRSA Screen - Final Complete Labs and/or images reviewed: Labs reviewed by me, Image(s) reviewed by me Assessment/Plan Assessment/Plan Closed left ankle fracture: Short-leg splint/walking boot, no surgical intervention required per Dr. Coleman Sinus bradycardia cardiology consult by Dr.M Dorsey appreciated, planning for pacemaker AICD and left heart catheterization today Confusion and altered mental status: CT head neg, possibly secondary to UTI Cardiomegaly with a pulmonary vascular congestion History of AFib on Eliquis and amiodarone CHF Hypertension Hypercholesterolemia History of DVT and PE on Eliquis History of CVA Acute renal injury Generalized weakness Possible UTI: Rocephin 1 g IV daily Time Spent 50 minutes Advanced care planning time 20 minutes Patient is full code Plan discussed with: Patient My Orders Orders - CRISTINA SONG MD Procedure Category Date Status Time Us Guided Vascular US 02/11/25 Logged Access 12:22 Nursing Protocol Picc AJ 02/11/25 In Process 12:22 Change Dressing Prn AJ 02/11/25 In Process 12:22 PICC BD 02/11/25 Transmitted 12:22 Sodium Chloride Lock PHA 02/11/25 In Process (Saline Lock Ns) 22:00 Do Not Use Picc For [facility] 02/11/25 In Process Blood Cult 12:22 May Draw Blood From AJ 02/11/25 In Process Picc 12:22 Ok To Use Picc AJ 02/11/25 In Process 12:22 Change Picc Dressing [facility] 02/11/25 In Process Q7 Days 12:22 Chest Portable XY 02/11/25 Resulted 12:47 Ceftriaxone 1gm/50ml PHA 02/11/25 In Process (Rocephin) 15:[address] 02/12/25 Resulted 08:31 Date of Service: Feb 12, 2025 Billing Provider: CRISTINA SONG MD Common Visit Codes: [id number] INP/OBS CARE(HIGH) CRISTINA SONG MD Feb 12, 2025 10:51
[2025-02-12] MEDS: IODIXANOL 320MG/ML 100ML BTL IV ONE ×2 (15:40→15:57)
[2025-02-12] MEDS: HEPARIN SODIUM (PORCINE) 5000 UNITS/ML 1ML VIAL ONE (15:47)
[2025-02-12] MEDS: fentaNYL CITRATE 100 MCG/2 ML VL ONE (15:48)
[2025-02-12] MEDS: LIDOCAINE 2%HCL (LOCAL ANESTH.) INJ 20ML MDV ONE (15:48)
[2025-02-12] MEDS: VERAPAMIL 2.5MG/ML INJ 2ML VIAL IV ONE (15:48)
[2025-02-12] MEDS: MIDAZOLAM HCL 2MG/2ML 2ml VIAL (1mg/ml) ONE (15:48)
--- NOTE | 2025-02-12 18:22 | DVHOP ---
DATE OF SURGERY: 02/12/2025 TECHNIQUE PERFORMED: * Ultrasound of the right radial artery. * Management of conscious sedation. * Ultrasound-guided insertion of 6-[place] arterial line in the right radial artery. * Left heart catheter. * Left angiogram. * [place] selective left and right coronary artery angiography. COMPLICATIONS: None. ASSISTANTS: Assisted by our staff here Frankie Ward Carmella and Gabrielle. INDICATIONS: Acute coronary syndrome. DESCRIPTION OF PROCEDURE: As follows: Risks and benefits discussed. Counseling done. Questions answered. Information given. The patient had been brought to our concrete laborer. The patient's right radial area thoroughly cleaned with soap and Betadine. With the help of the TIG catheter 5-[place] 4.0 catheter, the left coronary angiography done. With the help of a similar catheter, we also did a right coronary angiography. With the help of a similar catheter, we also did a left heart cath and the left ventriculogram was done in the right anterior oblique view with a total of 10 mL of dye. Post-LV gram, left ventricular end-diastolic pressure had been performed with the help of pull-through technique. Aortic pressure was also performed. J-wire was passed and TIG catheter also had been discontinued. Procedure completed without any complications. IMPRESSION: * There was a normal left main. * Circumflex and obtuse marginal artery normal. * The right coronary artery is a large dominant artery and is normal. * Ejection fraction is 65% plus and is normal. CONCLUSION: * Grossly normal coronary artery angiography. * Ejection fraction 65%. * Conservative medical treatment. Bijal Dorsey MD MP/GERALDINE/SARY TID: [id number] RECEIPT: [id number] ANTONINA
--- NOTE | 2025-02-12 23:03 | DVHPN2 ---
Progress Note - Dictate Date Seen: Feb 12, 2025 Medical Necessity Reason Pt with a Central, PICC or Fol: No Subjective Patient was seen and evaluated in follow up in the [facility]. Patient underwent left heart cath, [place] selective left and right coronary artery angiography. Grossly normal coronary artery angiography. Ejection fraction 65%. Patient is advised for conservative medical treatment. MRSA is negative. vital signs Vital Sign Date Time Temp Pulse Resp B/P (MAP) Pulse Ox O2 Delivery O2 Flow Rate FiO2 02/12/25 22:45 55 15 142/55 (84) 91 02/12/25 20:49 97.5 97.5 02/12/25 20:00 Room Air* 0 21 Total Intake and Output 02/11/25 02/11/25 02/12/25 15:00 23:00 07:00 Intake Total 105.000 ml 571.875 ml 205.000 ml Output Total 900 ml 1000 ml Balance 105.000 ml -328.125 ml -795.000 ml medications Current Medications Medications Dose Ordered Sig/[place] Route Start Time Stop Time Status Last Admin Dose Admin Acetaminophen/ Hydrocodone Bitart 1 tab Q4HP PRN PO 02/08/25 22:15 Ondansetron HCl 4 mg Q4HP PRN IV 02/08/25 22:15 02/09/25 13:04 4 MG Docusate Sodium 100 mg BIDPRN PRN PO 02/08/25 22:15 02/09/25 21:19 100 MG Acetaminophen 650 mg Q6HP PRN PO 02/08/25 22:15 02/10/25 15:12 650 MG Nitroglycerin 0.4 mg Q5MINP PRN SL 02/08/25 22:15 Morphine Sulfate 2 mg Q30M PRN IV 02/08/25 22:15 Dopamine HCl/ Dextrose 250 ml @ 13.125 mls/ hr Q19H3M IV 02/09/25 06:45 02/12/25 05:58 13.125 MLS/HR Furosemide 20 mg DAILY PO 02/09/25 11:40 02/12/25 10:00 20 MG Atorvastatin Calcium 40 mg HS PO 02/09/25 22:00 02/12/25 22:16 40 MG Melatonin 10 mg HS PO 02/10/25 23:45 02/11/25 21:05 10 MG Sodium Chloride 10 ml QSHIFT@10,22 IV 02/11/25 22:00 02/12/25 22:17 10 ML Ceftriaxone Sodium 50 ml @ 100 mls/hr DAILY@09 IV 02/11/25 15:15 02/12/25 08:34 100 MLS/HR objective GENERAL: Alert and oriented x 3. No acute distress. EYES: PERRL, EOMI. Anicteric. HENT: Moist mucous membranes. LUNGS: Clear to auscultation bilaterally. CARDIOVASCULAR: Regular rate and rhythm. ABDOMEN: Soft, nontender and nondistended. EXTREMITIES: Left ankle swelling and tenderness, limited range of motion. NEUROLOGIC: No focal neurological deficits. SKIN: Warm, dry. laboratory and microbiology Laboratory Tests 02/12/25 05:31 Test 02/12/25 05:31 Range/Units Serum Glucose 113 H 74-106 mg/dL Problem List Sinus bradycardia--possible Medication-related bradycardia. Cardiomegaly with pulmonary vascular congestion. History of AFib on Eliquis and amiodarone. CHF. Hypertension. Hyperlipidemia. History of DVT and PE on Eliquis. History of CVA. Assessment/Plan Continued all current supportive medical care. PPM insertion 02/12. Morphine and [place] for pain management. Eliquis. Lipitor. Dopamine drip. Diuretics with Lasix. Nitro SL. Additional plan as per the hospital course. Critical care time of 45 minutes provided to include time spent evaluation of patient at bedside, when appropriate patient/family education for diagnosis, treatment plan, review of pertinent medical information and discussion of care with specialty providers and PCP. Plan discussed with: Patient ANDREA BECKMAN MD Feb 12, 2025 23:03
[2025-02-13] VITALS (64 sets, daily range): BP systolic 99–169; BP diastolic 45–120; PULSE 54–69; RESP 11–19; TEMP 98.2–98.5; O2SAT 90–100
[2025-02-13 05:14] LABS: Hematocrit 38.3 % (36.0-46.0); Hemoglobin 13.0 g/dL (12.2-16.2); Mean Corpuscular Hemoglobin 31.0 pg (28.0-32.0); Mean Corpuscular Volume 91.0 fL (80.0-100.0); Nucleated Red Blood Cells % 0.1 %
[2025-02-13 05:30] LABS: INR 1.06 (0.9-1.15); Partial Thromboplastin Time 28.5 SEC (24.5-34.5); Prothrombin Time 11.2 sec (9.3-11.8)
[2025-02-13 05:33] LABS: Alanine Aminotransferase 10 U/L (7-40); Albumin 3.9 g/dL (3.2-4.8); Alkaline Phosphatase 80 U/L (46-116); Anion Gap 11 (5-15); BUN/Creatinine Ratio 13.5 (10.0-20.0); Bilirubin, Total 0.4 mg/dL (0.2-1.0); Blood Urea Nitrogen 17 mg/dL (9-23); Carbon Dioxide 23 mmol/L (20-31); Chloride 106 mmol/L (98-107); Glucose 104 mg/dL (74-106); Potassium 4.1 mmol/L (3.5-5.1); Sodium 140 mmol/L (136-145); Total Protein 7.1 g/dL (5.7-8.2)
[2025-02-13 05:36] LABS: Calcium 9.2 mg/dL (8.7-10.4)
[2025-02-13] MEDS: VANCOMYCIN HCL 1000 MG VL ONE ×2 (08:15→09:51)
[2025-02-13] MEDS: LIDOCAINE 2%HCL (LOCAL ANESTH.) INJ 20ML MDV ONE ×3 (08:15→09:32)
[2025-02-13] MEDS: MIDAZOLAM HCL 2MG/2ML 2ml VIAL (1mg/ml) ONE (08:15)
[2025-02-13] MEDS: fentaNYL CITRATE 100 MCG/2 ML VL ONE (08:15)
[2025-02-13] MEDS: VANCOMYCIN 1GM/250ML KIT 250 ML IV ONE (08:16)
[2025-02-13] MEDS: IODIXANOL 320MG/ML 100ML BTL IV ONE (08:16)
[2025-02-13] MEDS ORDERED: ACETAMINOPHEN 325 MG TAB PO PRN (10:15)
[2025-02-13] MEDS: VANCOMYCIN 1GM/250ML KIT 250 ML IV SCH (10:15)
[2025-02-13] MEDS: ceFAZolin 1GM/50ML 50 ML IV SCH (10:15)
[2025-02-13] MEDS: SODIUM CHLORIDE 0.9% 1,000 ML IV SCH (10:15)
--- NOTE | 2025-02-13 11:08 | DVH ---
EXAM: XY CHEST PORTABLE Indication: S/P PACEMAKER Technique: Single frontal view of the chest was obtained Comparison: XY CHEST PORTABLE on DOS: 02/11/25, XY CHEST PORTABLE on DOS: 02/08/25 FINDINGS: Lines and Tubes: Cardiac pacemaker projects over left chest wall. Lungs: No focal consolidation. Pleura: No effusion. No pneumothorax. Cardiomediastinal contours: Unremarkable. Atherosclerotic vascular calcifications of the thoracic ao rta are noted. Bones: No acute osseous abnormality. IMPRESSION: No acute cardiopulmonary disease.
--- NOTE | 2025-02-13 11:26 | DVHPN2 ---
Reviewed: Care Plan, H&P, Medications, Previous Orders, Radiology Changes from previous H/P or p: No Changes Eyes: No Pain, No Vision change, No Conjunctivae inflammation, No Eyelid inflammation, No Other, No Redness ENT: No Ear pain, No Ear discharge, No Nose pain, No Nose discharge, No Nose congestion, No Mouth pain, No Mouth swelling, No Throat pain, No Throat swelling, No Other Cardiovascular: No Chest Pain, No Palpitations, No Orthopnea, No Paroxysmal Noc. Dyspnea, No Edema, No Lt Headedness, No Other Respiratory: No Cough, No Dry, No Shortness of breath, No SOB with excertion, No Wheezing, No Hemoptysis, No Pleuritic Pain, No Sputum, No Other Gastrointestinal: No Nausea, No Vomiting, No Abdominal Pain, No Diarrhea, No Constipation, No Melena, No Hematochezia, No Other Genitourinary: No Dysuria, No Frequency, No Incontinence, No Hematuria, No Retention, No Other Musculoskeletal: other Skin: No Rash, No Lesions, No Jaundice, No Bruising, No Other Objective Vitals Vital Signs Date Time Temp Pulse Resp B/P (MAP) Pulse Ox O2 Delivery O2 Flow Rate FiO2 02/13/25 08:15 117/68 02/13/25 08:00 56 02/13/25 07:15 15 94 02/13/25 07:10 Room Air* 0 21 02/13/25 04:15 98.2 98.2 Intake/Output Intake and Output 02/13/25 07:00 Intake Total 372.125 ml Output Total 975 ml Balance -602.875 ml Intake Oral 20 ml IV Total 352.125 ml Output Urine Total 975 ml Medications Current Medications Medications Dose Ordered Sig/[place] Route Start Time Stop Time Status Last Admin Dose Admin Ondansetron HCl 4 mg Q4HP PRN IV 02/08/25 22:15 02/13/25 10:58 4 MG Docusate Sodium 100 mg BIDPRN PRN PO 02/08/25 22:15 02/09/25 21:19 100 MG Nitroglycerin 0.4 mg Q5MINP PRN SL 02/08/25 22:15 Morphine Sulfate 2 mg Q30M PRN IV 02/08/25 22:15 Dopamine HCl/ Dextrose 250 ml @ 13.125 mls/ hr Q19H3M IV 02/09/25 06:45 02/13/25 02:21 13.125 MLS/HR Furosemide 20 mg DAILY PO 02/09/25 11:40 02/12/25 10:00 20 MG Atorvastatin Calcium 40 mg HS PO 02/09/25 22:00 02/12/25 22:16 40 MG Melatonin 10 mg HS PO 02/10/25 23:45 02/11/25 21:05 10 MG Sodium Chloride 10 ml QSHIFT@10,22 IV 02/11/25 22:00 02/13/25 10:19 10 ML Ceftriaxone Sodium 50 ml @ 100 mls/hr DAILY@09 IV 02/11/25 15:15 Hold 02/12/25 08:34 100 MLS/HR Vancomycin HCl 250 ml @ 250 mls/hr Q12H IV 02/13/25 10:15 Cefazolin Sodium 50 ml @ 50 mls/hr Q8H IV 02/13/25 10:15 02/13/25 19:14 Acetaminophen/ Hydrocodone Bitart 1 tab Q4HP PRN PO 02/13/25 10:15 Sodium Chloride 1,000 ml @ 200 mls/hr Q5H IV 02/13/25 10:15 02/13/25 14:14 Acetaminophen 650 mg Q6HP PRN PO 02/13/25 10:15 Pantoprazole Sodium 40 mg BID IV 02/13/25 22:00 Sucralfate 1 gm QID@0600,1130,1700,2200 PO 02/13/25 11:30 Laboratory Results Laboratory Tests 02/13/25 04:59 Chemistry Test 02/13/25 04:59 Albumin 3.9 g/dL (3.2-4.8) Calcium Level 9.2 mg/dL (8.7-10.4) Total Protein 7.1 g/dL (5.7-8.2) Coagulation Test 02/13/25 04:59 Prothrombin Time 11.2 sec (9.3-11.8) Prothrombin Time INR 1.06 (0.9-1.15) Activated Partial Thromboplast Time 28.5 SEC (24.5-34.5) LFT Test 02/13/25 04:59 Alanine Aminotransferase (ALT) 10 U/L (7-40) Alkaline Phosphatase 80 U/L (46-116) Aspartate Amino Transferase (AST) 13 U/L (13-40) Total Bilirubin 0.4 mg/dL (0.2-1.0) Urinalysis Test 02/11/25 09:30 Urine Color Yellow (Yellow) Urine Clarity Cloudy (Clear) H Urine pH 8.0 (5.0-9.0) Urine Specific [place] 1.013 (1.001-1.035) Urine Protein 1+ (Negative) H Urine Ketones Negative (Negative) Urine Blood 3+ /uL (Negative) H Urine Nitrite Negative (Negative) Urine Bilirubin Negative (Negative) Urine Urobilinogen Normal mg/dL (Negative) Urine Leukocyte Esterase 3+ /uL (Negative) Urine Glucose 3+ mg/dL (Normal) H Microbiology Microbiology Date/Time Source Procedure Growth Status 02/11/25 09:30 Urine - [place] Urine Culture - Preliminary Resulted 02/09/25 23:59 Nose MRSA Screen - Final Complete Labs and/or images reviewed: Labs reviewed by me, Image(s) reviewed by me Assessment/Plan Assessment/Plan Closed left ankle fracture: Short-leg splint/walking boot, no surgical intervention required per Dr. Coleman Sinus bradycardia cardiology consult by Dr.M Dorsey appreciated, Status post left heart catheterization by cupola mechanic Dr. Zeyad Dorsey on 02/12/2025 normal coronaries, 65 % ejection fraction Confusion and altered mental status: CT head neg, possibly secondary to UTI Cardiomegaly with pulmonary vascular congestion History of AFib on Eliquis and amiodarone CHF Hypertension History of ruptured brain aneurysm status post clipping Hypercholesterolemia History of DVT and PE on Eliquis Status post IVC filter at [place] History of CVA Acute renal injury Generalized weakness Possible UTI: Rocephin 1 g IV daily Time Spent 50 minutes Advanced care planning time 20 minutes Patient is full code Plan discussed with: Patient Date of Service: Feb 13, 2025 Billing Provider: CRISTINA SONG MD Common Visit Codes: [id number] INP/OBS CARE(HIGH) CRISTINA SONG MD Feb 13, 2025 11:26
[2025-02-13 11:38] LABS: Hematocrit 32.6 % (36.0-46.0); Hemoglobin 10.7 g/dL (12.2-16.2); Mean Corpuscular Hemoglobin 30.2 pg (28.0-32.0); Mean Corpuscular Volume 92.1 fL (80.0-100.0); Nucleated Red Blood Cells % 0.0 %
--- NOTE | 2025-02-13 12:09 | DVH ---
XY CHEST PORTABLE, HISTORY: Rule out Pneumothorax COMPARISON: XY CHEST PORTABLE on DOS: 02/13/25, XY CHEST PORTABLE on DOS: 02/11/25, XY CHEST PORTABLE o n DOS: 02/08/25 XY CHEST PORTABLE on DOS: 02/13/25, XY CHEST PORTABLE on DOS: 02/11/25, XY CHEST PORTABLE on DOS: TECHNICAL DATA: 1 view of the chest was obtained. FINDINGS: Lines and tubes: Stable cardiac pacer. Cardiomediastinal silhouette: normal Pulmonary vasculature: normal Lung expansion: normal Lung airspace: normal Lung interstitium: normal Pleura: normal Pneumothorax: no Bones: Unremarkable Other: no IMPRESSION: No pneumothorax visualized.
--- NOTE | 2025-02-13 15:02 | DVHINCON2 ---
GI Consult Consult Note GI consult note Date of Consultation: 02/13/2025 Chief Complaint: Hematemesis Referring Physician: Dr. Dorsey H&P: 79-year-old female admitted with complains of left ankle pain. Patient is status post angiogram and pacemaker placement. Post procedure patient had one episode of emesis with bright red blood. No complains of abdominal pain at this time. No nausea or vomiting. Patient's last bowel movement was3 days ago denies melena or red blood in stool. Patient has history of taking Eliquis due to history of DVT and PE in past Past Medical History: AFIB, CHF, CVA, High Lipids, HTN Past Surgical History: Right shoulder surgery Social History: NO smoking, drinking ETOH and use of illegal drugs. Family History: Noncontributory Review of Systems: Constitutional: no fever, chill, weight loss HEENT: no eye pain, no hearing loss, no oral lesion, no scleral icterus Heart: no chest pain, no chest pressure Lung: no cough, no dyspnea with exertion Abdomen: see HPI Physical exam: General: NAD, AAOX3 Chest: lung wolff clear to auscultation Heart: RRR, no murmur Abdomen: non-distended, no tenderness to palpation, +BS Labs: Chemistry Test 02/13/25 04:59 Albumin 3.9 g/dL (3.2-4.8) Calcium Level 9.2 mg/dL (8.7-10.4) Total Protein 7.1 g/dL (5.7-8.2) Coagulation Test 02/13/25 04:59 Prothrombin Time 11.2 sec (9.3-11.8) Prothrombin Time INR 1.06 (0.9-1.15) Activated Partial Thromboplast Time 28.5 SEC (24.5-34.5) LFT Test 02/13/25 04:59 Alanine Aminotransferase (ALT) 10 U/L (7-40) Alkaline Phosphatase 80 U/L (46-116) Aspartate Amino Transferase (AST) 13 U/L (13-40) Total Bilirubin 0.4 mg/dL (0.2-1.0) Urinalysis Test 02/11/25 09:30 Urine Color Yellow (Yellow) Urine Clarity Cloudy (Clear) H Urine pH 8.0 (5.0-9.0) Urine Specific [place] 1.013 (1.001-1.035) Urine Protein 1+ (Negative) H Urine Ketones Negative (Negative) Urine Blood 3+ /uL (Negative) H Urine Nitrite Negative (Negative) Urine Bilirubin Negative (Negative) Urine Urobilinogen Normal mg/dL (Negative) Urine Leukocyte Esterase 3+ /uL (Negative) Urine Glucose 3+ mg/dL (Normal) H Microbiology Microbiology Date/Time Source Procedure Growth Status 02/11/25 09:30 Urine - [place] Urine Culture - Preliminary Resulted 02/09/25 23:59 Nose MRSA Screen - Final Complete Labs and/or images reviewed: Labs reviewed by me, Image(s) reviewed by me Imaging: Assessment: Possible GI bleed Status post left heart catheterization and pacemaker History of DVT and PE on Eliquis History of CVA Generalized weakness Plan: -discussed with Dr. Barksdale Monitor labs transfuse if hemoglobin less than seven Protonix Carafate and Zofran Ice chips advance to clear liquid diet as tolerated We will continue to monitor patient GI on standby if any active GI bleed Discussed plan with patient and RN Thank you for this consult Date of Service: Feb 13, 2025 Billing Provider: RYLAND SONG Common Visit Codes: CONSULT ONLY Consultation Codes: [id number] CONSULT <60MIN RYLAND SONG Feb 13, 2025 15:02
[2025-02-13] MEDS: PANTOPRAZOLE 40 MG/10 ML VIAL INJ IV ONE (15:26)
[2025-02-13] MEDS: SUCRALFATE 1 GM/10 ML ORAL SUSP PO SCH (15:28)
[2025-02-13] MEDS: PANTOPRAZOLE 40 MG/10 ML VIAL INJ IV SCH (21:30)
--- NOTE | 2025-02-13 21:37 | DVHPN2 ---
Progress Note - Dictate Date Seen: Feb 13, 2025 Medical Necessity Reason Pt with a Central, PICC or Fol: No Subjective Patient was seen and evaluated in follow up in the [facility]. Patient underwent PPM insertion today and tolerated the procedure well. Chest x-ray shows the cardiac pacemaker projects over left chest wall. vital signs Vital Sign Date Time Temp Pulse Resp B/P (MAP) Pulse Ox O2 Delivery O2 Flow Rate FiO2 02/13/25 14:00 61 13 116/64 (81) 100 02/13/25 07:10 Room Air* 0 21 02/13/25 04:15 98.2 98.2 Total Intake and Output 02/12/25 02/12/25 02/13/25 15:00 23:00 07:00 Intake Total 155.250 ml 91.875 ml 125.000 ml Output Total 550 ml 425 ml Balance 155.250 ml -458.125 ml -300.000 ml medications Current Medications Medications Dose Ordered Sig/Homer Route Start Time Stop Time Status Last Admin Dose Admin Ondansetron HCl 4 mg Q4HP PRN IV 02/08/25 22:15 02/13/25 10:58 4 MG Docusate Sodium 100 mg BIDPRN PRN PO 02/08/25 22:15 02/09/25 21:19 100 MG Nitroglycerin 0.4 mg Q5MINP PRN SL 02/08/25 22:15 Morphine Sulfate 2 mg Q30M PRN IV 02/08/25 22:15 Dopamine HCl/ Dextrose 250 ml @ 13.125 mls/ hr Q19H3M IV 02/09/25 06:45 02/13/25 02:21 13.125 MLS/HR Furosemide 20 mg DAILY PO 02/09/25 11:40 02/12/25 10:00 20 MG Atorvastatin Calcium 40 mg HS PO 02/09/25 22:00 02/12/25 22:16 40 MG Melatonin 10 mg HS PO 02/10/25 23:45 02/11/25 21:05 10 MG Sodium Chloride 10 ml QSHIFT@10,22 IV 02/11/25 22:00 02/13/25 10:19 10 ML Ceftriaxone Sodium 50 ml @ 100 mls/hr DAILY@09 IV 02/11/25 15:15 02/12/25 08:34 100 MLS/HR Vancomycin HCl 250 ml @ 250 mls/hr Q12H IV 02/13/25 10:15 02/13/25 10:15 250 MLS/HR Cefazolin Sodium 50 ml @ 50 mls/hr Q8H IV 02/13/25 10:15 02/13/25 19:14 Acetaminophen/ Hydrocodone Bitart 1 tab Q4HP PRN PO 02/13/25 10:15 Sodium Chloride 1,000 ml @ 200 mls/hr Q5H IV 02/13/25 10:15 02/13/25 14:14 02/13/25 10:15 200 MLS/HR Acetaminophen 650 mg Q6HP PRN PO 02/13/25 10:15 Pantoprazole Sodium 40 mg BID IV 02/13/25 22:00 Sucralfate 1 gm QID@0600,1130,1700,2200 PO 02/13/25 11:30 objective GENERAL: Alert and oriented x 3. No acute distress. EYES: PERRL, EOMI. Anicteric. HENT: Moist mucous membranes. LUNGS: Clear to auscultation bilaterally. CARDIOVASCULAR: Regular rate and rhythm. ABDOMEN: Soft, nontender and nondistended. EXTREMITIES: Left ankle swelling and tenderness, limited range of motion. NEUROLOGIC: No focal neurological deficits. SKIN: Warm, dry. laboratory and microbiology Laboratory Tests 02/13/25 11:25 02/13/25 04:59 Test 02/13/25 04:59 Range/Units Serum Glucose 104 74-106 mg/dL Problem List Sinus bradycardia--possible Medication-related bradycardia. Cardiomegaly with pulmonary vascular congestion. History of AFib on Eliquis and amiodarone. CHF. Hypertension. Hyperlipidemia. History of DVT and PE on Eliquis. History of CVA. Assessment/Plan Continued all current supportive medical care. Morphine and [place] for pain management. Lipitor. IV antibiotics as ordered. Dopamine drip. Diuretics with Lasix. GI prophylactics. Nitro SL. Additional plan as per the hospital course. Critical care time of 45 minutes provided to include time spent evaluation of patient at bedside, when appropriate patient/family education for diagnosis, treatment plan, review of pertinent medical information and discussion of care with specialty providers and PCP. Dietary Evaluation Review Comments: Nutrition Recommendation: 1) Ensure enlive 240ml BID 2) Monitor PO intake, lab values, weight trend, and I/O Expected Outcomes/Goals: To meet >75% estimated needs Fu 3-5 days Plan discussed with: Patient ANDREA BECKMAN MD Feb 13, 2025 14:17
[2025-02-14] VITALS (24 sets, daily range): BP systolic 90–153; BP diastolic 46–77; PULSE 59–63; RESP 11–21; TEMP 98.1–99.4; O2SAT 92–96
--- NOTE | 2025-02-14 00:55 | DVHOP ---
DATE OF SURGERY: 02/13/2025 TECHNIQUE PERFORMED: * Emergency case. * Attempt for a left subclavian venography. * Fluoroscopic guidance and supervision. * Management of the conscious sedation. * Implantation of a dual chamber permanent pacemaker from the left popliteal region ([employer] device, MRI approved). * Interrogation of the device. COMPLICATIONS: None. ASSISTANTS: OR staff Oly. Other assistants Jigar Ward Angela and Bee. INDICATIONS: The patient dependent on the dopamine to keep the heart rate normal. DESCRIPTION OF PROCEDURE: The risks and benefits discussed including any type of bleeding, heart. The patient was brought to electronic lab technician. Right groin were shaved, cleaned with soap and Betadine. Lidocaine was given and IV Versed and fentanyl had been given. Vancomycin had been given. Subsequently, we also opened the left subclavian venous line as we were not able to do the venogram because the IV blew out. So, now, we have gone blindly to get a left subclavian vein, able to obtain incision was made 2 inches semi-horizontally. Subcutaneous pocket was made. Bleeding site all had been cauterized. A 9-Turkmen venous sheath was passed. Dilator was removed and subsequently, now we have put a ventricular lead. The ventricular lead was passed and subsequently had been sutured with help of Ethibond. Pulse generator applied, screwed in very well, put under the subpectoralis groove. The whole area was cleaned with antibiotic. Vancomycin powder applied. Subsequently, we have 2-0 Vicryl followed by 3-0, the whole wound had been very well sutured and staple applied, tincture of benzoin, Steri-Strips, Telfa, OpSite applied. Procedure went well. There was no complication. CONCLUSION: * The patient has atrial lead is 1.6, impedance 532, threshold 0.75 and right ventricle 10.4, impedance 893 and threshold 0.5. * Successful implant of dual chamber permanent pacemaker. PLAN OF ACTION: Chest x-ray. I am going to review with . If x-rays are clear, then the patient will need antibiotic for the next 1-week period and I will see her back in the office to remove the staple in 2 weeks. I am going to talk to the patient's granddaughter. The patient is clinically stable at this time in the recovery room. Bijal Dorsey MD MP/STEFF/OBED TID: [id number] RECEIPT: [id number] MTDD
[2025-02-14 05:39] LABS: Hematocrit 33.0 % (36.0-46.0); Hemoglobin 11.5 g/dL (12.2-16.2); Mean Corpuscular Hemoglobin 31.6 pg (28.0-32.0); Mean Corpuscular Volume 90.9 fL (80.0-100.0); Nucleated Red Blood Cells % 0.0 %
[2025-02-14 05:44] LABS: Potassium 4.0 mmol/L (3.5-5.1); Sodium 140 mmol/L (136-145)
[2025-02-14 05:45] LABS: Anion Gap 9 (5-15); Carbon Dioxide 22 mmol/L (20-31)
[2025-02-14 05:49] LABS: Calcium 8.2 mg/dL (8.7-10.4); Chloride 109 mmol/L (98-107)
[2025-02-14 05:50] LABS: Glucose 91 mg/dL (74-106)
[2025-02-14 05:51] LABS: BUN/Creatinine Ratio 11.9 (10.0-20.0); Blood Urea Nitrogen 13 mg/dL (9-23)
--- NOTE | 2025-02-14 06:07 | DVH ---
CHEST RADIOGRAPH Indication: CXR FOR PACEMAKER/ICD LEAD PLACEMENT Technique: Single frontal view of the chest was obtained COMPARISON: XY CHEST PORTABLE on DOS: 02/13/25, XY CHEST PORTABLE on DOS: 02/13/25, XY CHEST PORTABLE o n DOS: 02/11/25, XY CHEST PORTABLE on DOS: 02/08/25 FINDINGS: Lines and Tubes: Left chest wall pacemaker. Right PICC in satisfactory position. Lungs: Mild pulmonary vascular congestion. Pleura: No effusion. No pneumothorax. Cardiomediastinal contours: Cardiomegaly. Bones: Unremarkable IMPRESSION: Mild pulmonary vascular congestion
--- NOTE | 2025-02-14 07:28 | ECG ---
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
--- NOTE | 2025-02-14 07:28 | ECG ---
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
[2025-02-14] MEDS: ERTAPENEM SOD INJ 1 GM in SODIUM CHL 0.9% 50 ML IV ONE (10:15)
--- NOTE | 2025-02-14 10:30 | DVHPN2 ---
Reviewed: Care Plan, H&P, Medications, Previous Orders, Radiology Changes from previous H/P or p: No Changes Eyes: No Pain, No Vision change, No Conjunctivae inflammation, No Eyelid inflammation, No Other, No Redness ENT: No Ear pain, No Ear discharge, No Nose pain, No Nose discharge, No Nose congestion, No Mouth pain, No Mouth swelling, No Throat pain, No Throat swelling, No Other Cardiovascular: No Chest Pain, No Palpitations, No Orthopnea, No Paroxysmal Noc. Dyspnea, No Edema, No Lt Headedness, No Other Respiratory: No Cough, No Dry, No Shortness of breath, No SOB with excertion, No Wheezing, No Hemoptysis, No Pleuritic Pain, No Sputum, No Other Gastrointestinal: No Nausea, No Vomiting, No Abdominal Pain, No Diarrhea, No Constipation, No Melena, No Hematochezia, No Other Genitourinary: No Dysuria, No Frequency, No Incontinence, No Hematuria, No Retention, No Other Musculoskeletal: other Skin: No Rash, No Lesions, No Jaundice, No Bruising, No Other Objective Vitals Vital Signs Date Time Temp Pulse Resp B/P (MAP) Pulse Ox O2 Delivery O2 Flow Rate FiO2 02/14/25 08:09 118/53 02/14/25 08:00 99.4 61 16 94 99.4 02/13/25 20:00 Room Air* 0 21 Intake/Output Intake and Output 02/14/25 07:00 Intake Total 1600 ml Output Total 450 ml Balance 1150 ml Intake Oral 250 ml IV Total 1350 ml Output Urine Total 450 ml Medications Current Medications Medications Dose Ordered Sig/Homer Route Start Time Stop Time Status Last Admin Dose Admin Ondansetron HCl 4 mg Q4HP PRN IV 02/08/25 22:15 02/13/25 10:58 4 MG Docusate Sodium 100 mg BIDPRN PRN PO 02/08/25 22:15 02/14/25 06:34 100 MG Nitroglycerin 0.4 mg Q5MINP PRN SL 02/08/25 22:15 Morphine Sulfate 2 mg Q30M PRN IV 02/08/25 22:15 Dopamine HCl/ Dextrose 250 ml @ 13.125 mls/ hr Q19H3M IV 02/09/25 06:45 02/13/25 02:21 13.125 MLS/HR Furosemide 20 mg DAILY PO 02/09/25 11:40 02/14/25 08:09 20 MG Atorvastatin Calcium 40 mg HS PO 02/09/25 22:00 02/13/25 21:30 40 MG Melatonin 10 mg HS PO 02/10/25 23:45 02/13/25 21:30 10 MG Sodium Chloride 10 ml QSHIFT@10,22 IV 02/11/25 22:00 02/14/25 08:09 10 ML Ceftriaxone Sodium 50 ml @ 100 mls/hr DAILY@09 IV 02/11/25 15:15 02/14/25 08:08 100 MLS/HR Vancomycin HCl 250 ml @ 250 mls/hr Q12H IV 02/13/25 10:15 02/13/25 21:46 250 MLS/HR Acetaminophen/ Hydrocodone Bitart 1 tab Q4HP PRN PO 02/13/25 10:15 Acetaminophen 650 mg Q6HP PRN PO 02/13/25 10:15 Pantoprazole Sodium 40 mg BID IV 02/13/25 22:00 02/14/25 08:08 40 MG Sucralfate 1 gm QID@0600,1130,1700,2200 PO 02/13/25 11:30 02/14/25 05:44 1 GM Laboratory Results Laboratory Tests 02/14/25 04:55 Chemistry Test 02/14/25 04:55 Calcium Level 8.2 mg/dL (8.7-10.4) L Urinalysis Test 02/11/25 09:30 Urine Color Yellow (Yellow) Urine Clarity Cloudy (Clear) H Urine pH 8.0 (5.0-9.0) Urine Specific [place] 1.013 (1.001-1.035) Urine Protein 1+ (Negative) H Urine Ketones Negative (Negative) Urine Blood 3+ /uL (Negative) H Urine Nitrite Negative (Negative) Urine Bilirubin Negative (Negative) Urine Urobilinogen Normal mg/dL (Negative) Urine Leukocyte Esterase 3+ /uL (Negative) Urine Glucose 3+ mg/dL (Normal) H Microbiology Microbiology Date/Time Source Procedure Growth Status 02/11/25 09:30 Urine - [place] Urine Culture - Preliminary Morganella morganii Resulted 02/09/25 23:59 Nose MRSA Screen - Final Complete Labs and/or images reviewed: Labs reviewed by me, Image(s) reviewed by me Assessment/Plan Assessment/Plan Closed left ankle fracture: Short-leg splint/walking boot, no surgical intervention required per Dr. Coleman Sinus bradycardia cardiology consult by Dr.M Dorsey appreciated, Status post left heart catheterization by supervisor anodizing Dr. Zeyad Dorsey on 02/12/2025 normal coronaries, 65 % ejection fraction Sepsis secondary to UTI with Morganvaibhav Thompsonni: DC Rocephin, start Invanz 1 g IV daily Cardiomegaly with pulmonary vascular congestion History of AFib on Eliquis and amiodarone CHF Hypertension History of ruptured brain aneurysm status post clipping Hypercholesterolemia History of DVT and PE on Eliquis Status post IVC filter at [place] History of CVA Acute renal injury Generalized weakness Possible UTI: Rocephin 1 g IV daily Spoke with daughter Pamela [phone] with the bedside and she is willing for the patient to go to [facility] for IV antibiotics Patient was [facility] [place] and was discharged last month. Time Spent 50 minutes Advanced care planning time 20 minutes Patient is full code Plan discussed with: Patient Date of Service: Feb 14, 2025 Billing Provider: CRISTINA SONG MD Common Visit Codes: [id number] INP/OBS CARE(HIGH) Secondary Visit Codes: [id number] CARE PLAN 30 MINUTES CRISTINA SONG MD Feb 14, 2025 10:30
[2025-02-14] MEDS: LACTULOSE 20Gm/30ML SOLN PO ONE (15:00)
--- NOTE | 2025-02-14 15:06 | DVHPN2 ---
Subjective Patient admits to feeling better No nausea vomiting No bowel movement Reviewed: Care Plan, H&P, Medications, Previous Orders, Radiology Changes from previous H/P or p: No Changes Eyes: No Pain, No Vision change, No Conjunctivae inflammation, No Eyelid inflammation, No Other, No Redness ENT: No Ear pain, No Ear discharge, No Nose pain, No Nose discharge, No Nose congestion, No Mouth pain, No Mouth swelling, No Throat pain, No Throat swelling, No Other Cardiovascular: No Chest Pain, No Palpitations, No Orthopnea, No Paroxysmal Noc. Dyspnea, No Edema, No Lt Headedness, No Other Respiratory: No Cough, No Dry, No Shortness of breath, No SOB with excertion, No Wheezing, No Hemoptysis, No Pleuritic Pain, No Sputum, No Other Gastrointestinal: No Nausea, No Vomiting, No Abdominal Pain, No Diarrhea, No Constipation, No Melena, No Hematochezia, No Other Genitourinary: No Dysuria, No Frequency, No Incontinence, No Hematuria, No Retention, No Other Musculoskeletal: other Skin: No Rash, No Lesions, No Jaundice, No Bruising, No Other Objective Vitals Vital Signs Date Time Temp Pulse Resp B/P (MAP) Pulse Ox O2 Delivery O2 Flow Rate FiO2 02/14/25 14:00 61 17 146/75 (98) 93 02/14/25 12:00 98.7 98.7 02/14/25 08:00 Room Air* 0 21 Intake/Output Intake and Output 02/14/25 07:00 Intake Total 1600 ml Output Total 450 ml Balance 1150 ml Intake Oral 250 ml IV Total 1350 ml Output Urine Total 450 ml Exam General: NAD, AAOX3 Chest: lung wolff clear to auscultation Heart: RRR, no murmur Abdomen: non-distended, no tenderness to palpation, +BS Medications Current Medications Medications Dose Ordered Sig/Homer Route Start Time Stop Time Status Last Admin Dose Admin Ondansetron HCl 4 mg Q4HP PRN IV 02/08/25 22:15 02/13/25 10:58 4 MG Docusate Sodium 100 mg BIDPRN PRN PO 02/08/25 22:15 02/14/25 06:34 100 MG Nitroglycerin 0.4 mg Q5MINP PRN SL 02/08/25 22:15 Morphine Sulfate 2 mg Q30M PRN IV 02/08/25 22:15 Dopamine HCl/ Dextrose 250 ml @ 13.125 mls/ hr Q19H3M IV 02/09/25 06:45 02/13/25 02:21 13.125 MLS/HR Furosemide 20 mg DAILY PO 02/09/25 11:40 02/14/25 08:09 20 MG Atorvastatin Calcium 40 mg HS PO 02/09/25 22:00 02/13/25 21:30 40 MG Melatonin 10 mg HS PO 02/10/25 23:45 02/13/25 21:30 10 MG Sodium Chloride 10 ml QSHIFT@10,22 IV 02/11/25 22:00 02/14/25 08:09 10 ML Vancomycin HCl 250 ml @ 250 mls/hr Q12H IV 02/13/25 10:15 02/14/25 10:15 250 MLS/HR Acetaminophen/ Hydrocodone Bitart 1 tab Q4HP PRN PO 02/13/25 10:15 Acetaminophen 650 mg Q6HP PRN PO 02/13/25 10:15 Pantoprazole Sodium 40 mg BID IV 02/13/25 22:00 02/14/25 08:08 40 MG Sucralfate 1 gm QID@0600,1130,1700,2200 PO 02/13/25 11:30 02/14/25 11:30 1 GM Ertapenem 1 gm/ Sodium Chloride 50 ml @ 100 mls/hr DAILY IV 02/15/25 10:00 Laboratory Results Laboratory Tests 02/14/25 04:55 Chemistry Test 02/14/25 04:55 Calcium Level 8.2 mg/dL (8.7-10.4) L Urinalysis Test 02/11/25 09:30 Urine Color Yellow (Yellow) Urine Clarity Cloudy (Clear) H Urine pH 8.0 (5.0-9.0) Urine Specific [place] 1.013 (1.001-1.035) Urine Protein 1+ (Negative) H Urine Ketones Negative (Negative) Urine Blood 3+ /uL (Negative) H Urine Nitrite Negative (Negative) Urine Bilirubin Negative (Negative) Urine Urobilinogen Normal mg/dL (Negative) Urine Leukocyte Esterase 3+ /uL (Negative) Urine Glucose 3+ mg/dL (Normal) H Microbiology Microbiology Date/Time Source Procedure Growth Status 02/11/25 09:30 Urine - [place] Urine Culture - Final Morganella morganii Enterococcus faecalis Complete 02/09/25 23:59 Nose MRSA Screen - Final Complete Labs and/or images reviewed: Labs reviewed by me, Image(s) reviewed by me Assessment/Plan Assessment/Plan Possible GI bleed Status post left heart catheterization and pacemaker History of DVT and PE on Eliquis History of CVA Generalized weakness Constipation Plan: -discussed with Dr. Barksdale Full liquid diet advance to soft as tolerated Monitor labs Lactulose Consider MiraLax if no bowel movements Outpatient GI follow-up recommended Plan discussed with: Patient, Other (RN) My Orders Orders - RYLAND SONG Procedure Category Date Status Time Full Liq Diet DIET 02/14/25 Transmitted Dinner Date of Service: Feb 14, 2025 Billing Provider: RYLAND SONG Common Visit Codes: [id number] INP/OBS CARE(HIGH) RYLAND SONG Feb 14, 2025 15:06
--- NOTE | 2025-02-14 23:56 | DVHPN2 ---
Progress Note - Dictate Date Seen: Feb 14, 2025 Medical Necessity Reason Pt with a Central, PICC or Fol: No Subjective Patient was seen and evaluated in follow up in the [facility]. Patient is complaining of left sided chest discomfort. 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 Chest x-ray showed mild pulmonary vascular congestion. vital signs Vital Sign Date Time Temp Pulse Resp B/P (MAP) Pulse Ox O2 Delivery O2 Flow Rate FiO2 02/14/25 08:09 118/53 02/14/25 08:00 99.4 61 16 94 99.4 02/13/25 20:00 Room Air* 0 21 Total Intake and Output 02/13/25 02/13/25 02/14/25 15:00 23:00 07:00 Intake Total 1050 ml 300 ml 250 ml Output Total 450 ml Balance 1050 ml 300 ml -200 ml medications Current Medications Medications Dose Ordered Sig/Homer Route Start Time Stop Time Status Last Admin Dose Admin Ondansetron HCl 4 mg Q4HP PRN IV 02/08/25 22:15 02/13/25 10:58 4 MG Docusate Sodium 100 mg BIDPRN PRN PO 02/08/25 22:15 02/14/25 06:34 100 MG Nitroglycerin 0.4 mg Q5MINP PRN SL 02/08/25 22:15 Morphine Sulfate 2 mg Q30M PRN IV 02/08/25 22:15 Dopamine HCl/ Dextrose 250 ml @ 13.125 mls/ hr Q19H3M IV 02/09/25 06:45 02/13/25 02:21 13.125 MLS/HR Furosemide 20 mg DAILY PO 02/09/25 11:40 02/14/25 08:09 20 MG Atorvastatin Calcium 40 mg HS PO 02/09/25 22:00 02/13/25 21:30 40 MG Melatonin 10 mg HS PO 02/10/25 23:45 02/13/25 21:30 10 MG Sodium Chloride 10 ml QSHIFT@10,22 IV 02/11/25 22:00 02/14/25 08:09 10 ML Vancomycin HCl 250 ml @ 250 mls/hr Q12H IV 02/13/25 10:15 02/13/25 21:46 250 MLS/HR Acetaminophen/ Hydrocodone Bitart 1 tab Q4HP PRN PO 02/13/25 10:15 Acetaminophen 650 mg Q6HP PRN PO 02/13/25 10:15 Pantoprazole Sodium 40 mg BID IV 02/13/25 22:00 02/14/25 08:08 40 MG Sucralfate 1 gm QID@0600,1130,1700,2200 PO 02/13/25 11:30 02/14/25 05:44 1 GM Ertapenem 1 gm/ Sodium Chloride 50 ml @ 100 mls/hr DAILY IV 02/15/25 10:00 objective GENERAL: Alert and oriented x 3. No acute distress. EYES: PERRL, EOMI. Anicteric. HENT: Moist mucous membranes. LUNGS: Clear to auscultation bilaterally. CARDIOVASCULAR: Regular rate and rhythm. ABDOMEN: Soft, nontender and nondistended. EXTREMITIES: Left ankle swelling and tenderness, limited range of motion. NEUROLOGIC: No focal neurological deficits. SKIN: Warm, dry. laboratory and microbiology Laboratory Tests 02/14/25 04:55 Test 02/14/25 04:55 Range/Units Serum Glucose 91 74-106 mg/dL Problem List Sinus bradycardia--possible Medication-related bradycardia. Cardiomegaly with pulmonary vascular congestion. History of AFib on Eliquis and amiodarone. CHF. Hypertension. Hyperlipidemia. History of DVT and PE on Eliquis. History of CVA. Assessment/Plan Continued all current supportive medical care. Nitro SL. GI prophylactics. Diuretics with Lasix. IV antibiotics as ordered. Morphine and [place] for pain management. Additional plan as per the hospital course. Critical care time of 45 minutes provided to include time spent evaluation of patient at bedside, when appropriate patient/family education for diagnosis, treatment plan, review of pertinent medical information and discussion of care with specialty providers and PCP. Dietary Evaluation Review Comments: Nutrition Recommendation: 1) Ensure enlive 240ml BID 2) Monitor PO intake, lab values, weight trend, and I/O Expected Outcomes/Goals: To meet >75% estimated needs Fu 3-5 days Plan discussed with: Patient ANDREA BECKMAN MD Feb 14, 2025 12:29
[2025-02-15] VITALS (27 sets, daily range): BP systolic 91–148; BP diastolic 51–100; PULSE 60–64; RESP 13–22; TEMP 97.8–98.7; O2SAT 92–96
[2025-02-15 05:33] LABS: Hematocrit 33.5 % (36.0-46.0); Hemoglobin 11.3 g/dL (12.2-16.2); Mean Corpuscular Hemoglobin 30.6 pg (28.0-32.0); Mean Corpuscular Volume 90.5 fL (80.0-100.0); Nucleated Red Blood Cells % 0.0 %
[2025-02-15 05:48] LABS: Alanine Aminotransferase < 9 U/L (7-40); Alkaline Phosphatase 68 U/L (46-116); Anion Gap 11 (5-15); BUN/Creatinine Ratio 9.9 (10.0-20.0); Blood Urea Nitrogen 10 mg/dL (9-23); Calcium 8.1 mg/dL (8.7-10.4); Carbon Dioxide 21 mmol/L (20-31); Chloride 109 mmol/L (98-107); Glucose 101 mg/dL (74-106); Magnesium 1.9 mg/dL (1.6-2.6); Potassium 3.3 mmol/L (3.5-5.1); Sodium 141 mmol/L (136-145)
[2025-02-15 05:49] LABS: Albumin 3.1 g/dL (3.2-4.8); Bilirubin, Total 0.5 mg/dL (0.2-1.0); Total Protein 5.6 g/dL (5.7-8.2)
[2025-02-15] MEDS: POTASSIUM CHL 20MEQ/100ML 100 ML IV SCH (08:02)
[2025-02-15] MEDS ORDERED: VANCOMYCIN PER PHARMACY 0 MG IV SCH (08:30)
[2025-02-15] MEDS: MAGNESIUM SULFATE 1GM/100ML 100 ML IV ONE (08:38)
[2025-02-15] MEDS: ERTAPENEM SOD INJ 1 GM in SODIUM CHL 0.9% 50 ML IV SCH (08:40)
--- NOTE | 2025-02-15 09:44 | DVHPN2 ---
Reviewed: Care Plan, H&P, Medications, Previous Orders, Radiology Changes from previous H/P or p: No Changes Eyes: No Pain, No Vision change, No Conjunctivae inflammation, No Eyelid inflammation, No Other, No Redness ENT: No Ear pain, No Ear discharge, No Nose pain, No Nose discharge, No Nose congestion, No Mouth pain, No Mouth swelling, No Throat pain, No Throat swelling, No Other Cardiovascular: No Chest Pain, No Palpitations, No Orthopnea, No Paroxysmal Noc. Dyspnea, No Edema, No Lt Headedness, No Other Respiratory: No Cough, No Dry, No Shortness of breath, No SOB with excertion, No Wheezing, No Hemoptysis, No Pleuritic Pain, No Sputum, No Other Gastrointestinal: No Nausea, No Vomiting, No Abdominal Pain, No Diarrhea, No Constipation, No Melena, No Hematochezia, No Other Genitourinary: No Dysuria, No Frequency, No Incontinence, No Hematuria, No Retention, No Other Musculoskeletal: other Skin: No Rash, No Lesions, No Jaundice, No Bruising, No Other Objective Vitals Vital Signs Date Time Temp Pulse Resp B/P (MAP) Pulse Ox O2 Delivery O2 Flow Rate FiO2 02/15/25 07:44 60 14 96 Room Air* 0 21 02/15/25 07:00 104/58 (73) 02/15/25 05:00 98.2 98.2 Intake/Output Intake and Output 02/15/25 07:00 Intake Total 1250 ml Output Total 1050 ml Balance 200 ml Intake Oral 650 ml IV Total 600 ml Output Urine Total 1050 ml # Bowel Movements 7 Medications Current Medications Medications Dose Ordered Sig/Homer Route Start Time Stop Time Status Last Admin Dose Admin Ondansetron HCl 4 mg Q4HP PRN IV 02/08/25 22:15 02/13/25 10:58 4 MG Docusate Sodium 100 mg BIDPRN PRN PO 02/08/25 22:15 02/14/25 06:34 100 MG Nitroglycerin 0.4 mg Q5MINP PRN SL 02/08/25 22:15 Morphine Sulfate 2 mg Q30M PRN IV 02/08/25 22:15 Dopamine HCl/ Dextrose 250 ml @ 13.125 mls/ hr Q19H3M IV 02/09/25 06:45 02/13/25 02:21 13.125 MLS/HR Furosemide 20 mg DAILY PO 02/09/25 11:40 02/14/25 08:09 20 MG Atorvastatin Calcium 40 mg HS PO 02/09/25 22:00 02/14/25 21:06 40 MG Melatonin 10 mg HS PO 02/10/25 23:45 02/14/25 22:04 10 MG Sodium Chloride 10 ml QSHIFT@10,22 IV 02/11/25 22:00 02/15/25 08:41 10 ML Acetaminophen/ Hydrocodone Bitart 1 tab Q4HP PRN PO 02/13/25 10:15 Acetaminophen 650 mg Q6HP PRN PO 02/13/25 10:15 Pantoprazole Sodium 40 mg BID IV 02/13/25 22:00 02/15/25 08:40 40 MG Sucralfate 1 gm QID@0600,1130,1700,2200 PO 02/13/25 11:30 02/14/25 21:06 1 GM Ertapenem 1 gm/ Sodium Chloride 50 ml @ 100 mls/hr DAILY IV 02/15/25 10:00 02/15/25 08:40 100 MLS/HR Potassium Chloride 100 ml @ 50 mls/hr Q2H IV 02/15/25 07:30 02/15/25 11:29 02/15/25 08:40 50 MLS/HR Vancomycin HCl 0 ml @ 0 mls/hr UD IV 02/15/25 08:30 Laboratory Results Laboratory Tests 02/15/25 05:08 Chemistry Test 02/15/25 05:08 Albumin 3.1 g/dL (3.2-4.8) L Calcium Level 8.1 mg/dL (8.7-10.4) L Magnesium Level 1.9 mg/dL (1.6-2.6) Total Protein 5.6 g/dL (5.7-8.2) L LFT Test 02/15/25 05:08 Alanine Aminotransferase (ALT) < 9 U/L (7-40) Alkaline Phosphatase 68 U/L (46-116) Aspartate Amino Transferase (AST) 15 U/L (13-40) Total Bilirubin 0.5 mg/dL (0.2-1.0) Urinalysis Test 02/11/25 09:30 Urine Color Yellow (Yellow) Urine Clarity Cloudy (Clear) H Urine pH 8.0 (5.0-9.0) Urine Specific [place] 1.013 (1.001-1.035) Urine Protein 1+ (Negative) H Urine Ketones Negative (Negative) Urine Blood 3+ /uL (Negative) H Urine Nitrite Negative (Negative) Urine Bilirubin Negative (Negative) Urine Urobilinogen Normal mg/dL (Negative) Urine Leukocyte Esterase 3+ /uL (Negative) Urine Glucose 3+ mg/dL (Normal) H Microbiology Microbiology Date/Time Source Procedure Growth Status 02/11/25 09:30 Urine - [place] Urine Culture - Final Morganella morganii Enterococcus faecalis Complete 02/09/25 23:59 Nose MRSA Screen - Final Complete Labs and/or images reviewed: Labs reviewed by me, Image(s) reviewed by me Assessment/Plan Assessment/Plan Closed left ankle fracture: Short-leg splint/walking boot, no surgical intervention required per Dr. Coleman Sinus bradycardia cardiology consult by Dr.M Dorsey appreciated, status post dual-chamber pacemaker insertion by Dr. Dorsey Status post left heart catheterization by track equipment operator Dr. Zeyad Dorsey on 02/12/2025 normal coronaries, 65 % ejection fraction Sepsis secondary to UTI with Morganella Morgagni: DC Rocephin, start Invanz 1 g IV daily Cardiomegaly with pulmonary vascular congestion History of AFib on Eliquis and amiodarone CHF Hypertension History of ruptured brain aneurysm status post clipping Hypercholesterolemia History of DVT and PE on Eliquis Status post IVC filter at [place] History of CVA Acute renal injury Generalized weakness Possible UTI: Rocephin 1 g IV daily Spoke with daughter Pamela [phone] with the bedside and she is willing for the patient to go to shelter facility for IV antibiotics Patient was in [facility] [place] and was discharged last month. Getting adjustment of the pacemaker leads by Dr. Dorsey today Time Spent 50 minutes Advanced care planning time 20 minutes Patient is full code Plan discussed with: Patient My Orders Orders - CRISTINA SONG MD Procedure Category Date Status Time Ertapenem Sod Inj PHA 02/15/25 In Process (Invanz) 10:00 Communication Order ORDERS 02/14/25 Transmitted 10:35 * Customer Service And Sales Consultant CONS 02/14/25 Transmitted Consult Discharge DISCHARGE 02/14/25 Transmitted 11:28 Vancomycin Per PHA 02/15/25 In Process Pharmacy 08:30 Vancomycin,[facility] 02/15/25 Logged 09:15 Date of Service: Feb 15, 2025 Billing Provider: CRISTINA SONG MD Common Visit Codes: [id number] INP/OBS CARE(HIGH) CRISTINA SONG MD Feb 15, 2025 09:44
--- NOTE | 2025-02-15 10:30 | DVHPN2 ---
Progress Note - Dictate Date Seen: Feb 15, 2025 Medical Necessity Reason Pt with a Central, PICC or Fol: No Subjective No new GI complaints; no further episodes of hematemesis H&H is stable at 11.3 Four small liquidy bowel movements with fecal incontinence Pt awaiting adjustment of pacemaker leads vital signs Vital Sign Date Time Temp Pulse Resp B/P (MAP) Pulse Ox O2 Delivery O2 Flow Rate FiO2 02/15/25 10:00 98.2 60 20 135/87 (103) 95 98.2 02/15/25 07:44 Room Air* 0 21 Total Intake and Output 02/14/25 02/14/25 02/15/25 15:00 23:00 07:00 Intake Total 350 ml 650 ml 250 ml Output Total 700 ml 350 ml Balance 350 ml -50 ml -100 ml medications Current Medications Medications Dose Ordered Sig/Homer Route Start Time Stop Time Status Last Admin Dose Admin Ondansetron HCl 4 mg Q4HP PRN IV 02/08/25 22:15 02/13/25 10:58 4 MG Docusate Sodium 100 mg BIDPRN PRN PO 02/08/25 22:15 02/14/25 06:34 100 MG Nitroglycerin 0.4 mg Q5MINP PRN SL 02/08/25 22:15 Morphine Sulfate 2 mg Q30M PRN IV 02/08/25 22:15 Dopamine HCl/ Dextrose 250 ml @ 13.125 mls/ hr Q19H3M IV 02/09/25 06:45 02/13/25 02:21 13.125 MLS/HR Furosemide 20 mg DAILY PO 02/09/25 11:40 02/14/25 08:09 20 MG Atorvastatin Calcium 40 mg HS PO 02/09/25 22:00 02/14/25 21:06 40 MG Melatonin 10 mg HS PO 02/10/25 23:45 02/14/25 22:04 10 MG Sodium Chloride 10 ml QSHIFT@10,22 IV 02/11/25 22:00 02/15/25 08:41 10 ML Acetaminophen/ Hydrocodone Bitart 1 tab Q4HP PRN PO 02/13/25 10:15 Acetaminophen 650 mg Q6HP PRN PO 02/13/25 10:15 Pantoprazole Sodium 40 mg BID IV 02/13/25 22:00 02/15/25 08:40 40 MG Sucralfate 1 gm QID@0600,1130,1700,2200 PO 02/13/25 11:30 02/14/25 21:06 1 GM Ertapenem 1 gm/ Sodium Chloride 50 ml @ 100 mls/hr DAILY IV 02/15/25 10:00 02/15/25 08:40 100 MLS/HR Potassium Chloride 100 ml @ 50 mls/hr Q2H IV 02/15/25 07:30 02/15/25 11:29 02/15/25 08:40 50 MLS/HR Vancomycin HCl 0 ml @ 0 mls/hr UD IV 02/15/25 08:30 objective General: NAD, AAOX3 Chest: lung wolff clear to auscultation Heart: RRR, no murmur Abdomen: non-distended, no tenderness to palpation, +BS laboratory and microbiology Laboratory Tests 02/15/25 05:08 Test 02/15/25 05:08 Range/Units Serum Glucose 101 74-106 mg/dL Problems(with codes): (1) UGI bleed (2) Generalized weakness (3) Closed left ankle fracture (4) Bradycardia Prognosis Plan Continue conservative treatment from GI point of view Outpatient follow up with GI Services as needed to discuss elective panendoscopy once medically stabilized Maintain on Protonix 40 mg p.o. daily, avoid aspirin and NSAIDs Patient is scheduled for DC to SNF for IV Abx for 2 weeks for complicated UTI today Dietary Evaluation Review Comments: Nutrition Recommendation: 1) Ensure enlive 240ml BID 2) Monitor PO intake, lab values, weight trend, and I/O Expected Outcomes/Goals: To meet >75% estimated needs Fu 3-5 days Plan discussed with: Other (Yvonne Sampson) GRAZYNA CROSS MD Feb 15, 2025 10:30
[2025-02-15] MEDS: MIDAZOLAM HCL 2MG/2ML 2ml VIAL (1mg/ml) ONE ×2 (11:59→13:12)
[2025-02-15] MEDS: VANCOMYCIN HCL 1000 MG VL ONE ×2 (11:59→13:24)
[2025-02-15] MEDS: fentaNYL CITRATE 100 MCG/2 ML VL ONE ×2 (11:59→13:12)
[2025-02-15] MEDS: VANCOMYCIN 1GM/250ML KIT 0 ML IV ONE (12:00)
[2025-02-15] MEDS: LIDOCAINE 2%HCL (LOCAL ANESTH.) INJ 20ML MDV ONE ×3 (12:00→13:12)
--- NOTE | 2025-02-15 14:52 | DVH ---
INDICATION: S/P PACEMAKER TECHNIQUE: Frontal view of the chest. COMPARISON: XY CHEST XRAY 1 VIEW on DOS: 02/14/25, XY CHEST PORTABLE on DOS: 02/13/25, XY CHEST PORTABL E on DOS: 02/13/25, XY CHEST PORTABLE on DOS: 02/11/25, XY CHEST PORTABLE on DOS: 02/08/25 FINDINGS: Right PICC with tip in svc. Left sided pacemaker. The heart and mediastinal contours are grossly unr emarkable. There is no evidence of pleural disease. The lungs are clear. The bony structures of t he chest are intact without fracture. IMPRESSION: 1. No evidence of acute disease.
[2025-02-15 15:11] LABS: Potassium 4.1 mmol/L (3.5-5.1)
[2025-02-15 15:17] LABS: Magnesium 2.2 mg/dL (1.6-2.6)
[2025-02-15] MEDS: ceFAZolin 1GM/50ML 50 ML IV SCH (21:33)
[2025-02-15] MEDS: DOXYCYCLINE 100 MG TAB/CAP PO SCH (21:33)
--- NOTE | 2025-02-15 22:45 | DVHPN2 ---
Progress Note - Dictate Date Seen: Feb 15, 2025 Medical Necessity Reason Pt with a Central, PICC or Fol: No Subjective Patient was seen and evaluated in follow up in the [facility]. Patient is complaining of left sided chest discomfort. Per RN, patient was noted with four small liquid bowel movements with fecal incontinence. Patient is pending adjustment of pacemaker leads. K 3.3. vital signs Vital Sign Date Time Temp Pulse Resp B/P (MAP) Pulse Ox O2 Delivery O2 Flow Rate FiO2 02/15/25 11:31 60 02/15/25 10:00 98.2 20 135/87 (103) 95 98.2 02/15/25 07:44 Room Air* 0 21 Total Intake and Output 02/14/25 02/14/25 02/15/25 15:00 23:00 07:00 Intake Total 350 ml 650 ml 250 ml Output Total 700 ml 350 ml Balance 350 ml -50 ml -100 ml medications Current Medications Medications Dose Ordered Sig/Homer Route Start Time Stop Time Status Last Admin Dose Admin Ondansetron HCl 4 mg Q4HP PRN IV 02/08/25 22:15 02/13/25 10:58 4 MG Docusate Sodium 100 mg BIDPRN PRN PO 02/08/25 22:15 02/14/25 06:34 100 MG Nitroglycerin 0.4 mg Q5MINP PRN SL 02/08/25 22:15 Morphine Sulfate 2 mg Q30M PRN IV 02/08/25 22:15 Dopamine HCl/ Dextrose 250 ml @ 13.125 mls/ hr Q19H3M IV 02/09/25 06:45 02/13/25 02:21 13.125 MLS/HR Furosemide 20 mg DAILY PO 02/09/25 11:40 02/14/25 08:09 20 MG Atorvastatin Calcium 40 mg HS PO 02/09/25 22:00 02/14/25 21:06 40 MG Melatonin 10 mg HS PO 02/10/25 23:45 02/14/25 22:04 10 MG Sodium Chloride 10 ml QSHIFT@10,22 IV 02/11/25 22:00 02/15/25 08:41 10 ML Acetaminophen/ Hydrocodone Bitart 1 tab Q4HP PRN PO 02/13/25 10:15 Acetaminophen 650 mg Q6HP PRN PO 02/13/25 10:15 Pantoprazole Sodium 40 mg BID IV 02/13/25 22:00 02/15/25 08:40 40 MG Sucralfate 1 gm QID@0600,1130,1700,2200 PO 02/13/25 11:30 02/14/25 21:06 1 GM Ertapenem 1 gm/ Sodium Chloride 50 ml @ 100 mls/hr DAILY IV 02/15/25 10:00 02/15/25 08:40 100 MLS/HR Vancomycin HCl 0 ml @ 0 mls/hr UD IV 02/15/25 08:30 objective GENERAL: Alert and oriented x 3. No acute distress. EYES: PERRL, EOMI. Anicteric. HENT: Moist mucous membranes. LUNGS: Clear to auscultation bilaterally. CARDIOVASCULAR: Regular rate and rhythm. ABDOMEN: Soft, nontender and nondistended. EXTREMITIES: Left ankle swelling and tenderness, limited range of motion. NEUROLOGIC: No focal neurological deficits. SKIN: Warm, dry. laboratory and microbiology Laboratory Tests 02/15/25 05:08 Test 02/15/25 05:08 Range/Units Serum Glucose 101 74-106 mg/dL Problem List Sinus bradycardia--possible Medication-related bradycardia. Cardiomegaly with pulmonary vascular congestion. History of AFib on Eliquis and amiodarone. CHF. Hypertension. Hyperlipidemia. History of DVT and PE on Eliquis. History of CVA. Assessment/Plan Continued all current supportive medical care. Nitro SL. GI prophylactics. IV antibiotics as ordered. Morphine and [place] for pain management. Additional plan as per the hospital course. Critical care time of 45 minutes provided to include time spent evaluation of patient at bedside, when appropriate patient/family education for diagnosis, treatment plan, review of pertinent medical information and discussion of care with specialty providers and PCP. Dietary Evaluation Review Comments: Nutrition Recommendation: 1) Ensure enlive 240ml BID 2) Monitor PO intake, lab values, weight trend, and I/O Expected Outcomes/Goals: To meet >75% estimated needs Fu 3-5 days Plan discussed with: Patient ANDREA BECKMAN MD Feb 15, 2025 12:35
[2025-02-16] VITALS (17 sets, daily range): BP systolic 101–131; BP diastolic 45–73; PULSE 60–63; RESP 11–21; TEMP 98.2–98.8; O2SAT 92–98
[2025-02-16 07:09] LABS: Hematocrit 31.1 % (36.0-46.0); Hemoglobin 10.6 g/dL (12.2-16.2); Mean Corpuscular Hemoglobin 30.8 pg (28.0-32.0); Mean Corpuscular Volume 90.7 fL (80.0-100.0); Nucleated Red Blood Cells % 0.0 %
[2025-02-16 07:30] LABS: Alanine Aminotransferase 10 U/L (7-40); Alkaline Phosphatase 67 U/L (46-116); Anion Gap 10 (5-15); BUN/Creatinine Ratio 13.0 (10.0-20.0); Blood Urea Nitrogen 13 mg/dL (9-23); Carbon Dioxide 21 mmol/L (20-31); Glucose 97 mg/dL (74-106); Potassium 3.8 mmol/L (3.5-5.1); Sodium 141 mmol/L (136-145)
[2025-02-16 07:31] LABS: Albumin 2.9 g/dL (3.2-4.8); Bilirubin, Total 0.5 mg/dL (0.2-1.0); Calcium 7.9 mg/dL (8.7-10.4); Chloride 110 mmol/L (98-107); Total Protein 5.1 g/dL (5.7-8.2)
[2025-02-16] MEDS: HYDROcodone-ACET 5/325MG TAB PO PRN (09:35)
--- NOTE | 2025-02-16 10:50 | DVHPN2 ---
Reviewed: Care Plan, H&P, Medications, Previous Orders, Radiology Changes from previous H/P or p: No Changes Eyes: No Pain, No Vision change, No Conjunctivae inflammation, No Eyelid inflammation, No Other, No Redness ENT: No Ear pain, No Ear discharge, No Nose pain, No Nose discharge, No Nose congestion, No Mouth pain, No Mouth swelling, No Throat pain, No Throat swelling, No Other Cardiovascular: No Chest Pain, No Palpitations, No Orthopnea, No Paroxysmal Noc. Dyspnea, No Edema, No Lt Headedness, No Other Respiratory: No Cough, No Dry, No Shortness of breath, No SOB with excertion, No Wheezing, No Hemoptysis, No Pleuritic Pain, No Sputum, No Other Gastrointestinal: No Nausea, No Vomiting, No Abdominal Pain, No Diarrhea, No Constipation, No Melena, No Hematochezia, No Other Genitourinary: No Dysuria, No Frequency, No Incontinence, No Hematuria, No Retention, No Other Musculoskeletal: other Skin: No Rash, No Lesions, No Jaundice, No Bruising, No Other Objective Vitals Vital Signs Date Time Temp Pulse Resp B/P (MAP) Pulse Ox O2 Delivery O2 Flow Rate FiO2 02/16/25 09:28 112/55 02/16/25 09:00 98.8 60 20 94 98.8 02/16/25 07:42 Room Air* 0 21 Intake/Output Intake and Output 02/16/25 07:00 Intake Total 500 ml Output Total 700 ml Balance -200 ml Intake Oral 400 ml IV Total 100 ml Output Urine Total 700 ml # Bowel Movements 3 Medications Current Medications Medications Dose Ordered Sig/Homer Route Start Time Stop Time Status Last Admin Dose Admin Ondansetron HCl 4 mg Q4HP PRN IV 02/08/25 22:15 02/13/25 10:58 4 MG Docusate Sodium 100 mg BIDPRN PRN PO 02/08/25 22:15 02/16/25 09:34 100 MG Nitroglycerin 0.4 mg Q5MINP PRN SL 02/08/25 22:15 Morphine Sulfate 2 mg Q30M PRN IV 02/08/25 22:15 Dopamine HCl/ Dextrose 250 ml @ 13.125 mls/ hr Q19H3M IV 02/09/25 06:45 02/13/25 02:21 13.125 MLS/HR Furosemide 20 mg DAILY PO 02/09/25 11:40 02/16/25 09:28 20 MG Atorvastatin Calcium 40 mg HS PO 02/09/25 22:00 02/15/25 21:33 40 MG Melatonin 10 mg HS PO 02/10/25 23:45 02/15/25 21:33 10 MG Sodium Chloride 10 ml QSHIFT@10,22 IV 02/11/25 22:00 02/16/25 09:29 10 ML Acetaminophen/ Hydrocodone Bitart 1 tab Q4HP PRN PO 02/13/25 10:15 02/16/25 09:35 1 TAB Acetaminophen 650 mg Q6HP PRN PO 02/13/25 10:15 Pantoprazole Sodium 40 mg BID IV 02/13/25 22:00 02/16/25 09:26 40 MG Sucralfate 1 gm QID@0600,1130,1700,2200 PO 02/13/25 11:30 02/16/25 06:14 1 GM Ertapenem 1 gm/ Sodium Chloride 50 ml @ 100 mls/hr DAILY IV 02/15/25 10:00 02/16/25 09:12 100 MLS/HR Vancomycin HCl 0 ml @ 0 mls/hr UD IV 02/15/25 08:30 Cefazolin Sodium 50 ml @ 100 mls/hr Q8HR IV 02/15/25 22:00 02/16/25 06:14 100 MLS/HR Doxycycline Monohydrate 100 mg Q12HR PO 02/15/25 22:00 02/16/25 09:26 100 MG Laboratory Results Laboratory Tests 02/16/25 05:57 Chemistry Test 02/15/25 14:42 02/16/25 05:57 Magnesium Level 2.2 mg/dL (1.6-2.6) Albumin 2.9 g/dL (3.2-4.8) L Calcium Level 7.9 mg/dL (8.7-10.4) L Total Protein 5.1 g/dL (5.7-8.2) L LFT Test 02/16/25 05:57 Alanine Aminotransferase (ALT) 10 U/L (7-40) Alkaline Phosphatase 67 U/L (46-116) Aspartate Amino Transferase (AST) 18 U/L (13-40) Total Bilirubin 0.5 mg/dL (0.2-1.0) Urinalysis Test 02/11/25 09:30 Urine Color Yellow (Yellow) Urine Clarity Cloudy (Clear) H Urine pH 8.0 (5.0-9.0) Urine Specific [place] 1.013 (1.001-1.035) Urine Protein 1+ (Negative) H Urine Ketones Negative (Negative) Urine Blood 3+ /uL (Negative) H Urine Nitrite Negative (Negative) Urine Bilirubin Negative (Negative) Urine Urobilinogen Normal mg/dL (Negative) Urine Leukocyte Esterase 3+ /uL (Negative) Urine Glucose 3+ mg/dL (Normal) H Microbiology Microbiology Date/Time Source Procedure Growth Status 02/11/25 09:30 Urine - [place] Urine Culture - Final Morganella morganii Enterococcus faecalis Complete 02/09/25 23:59 Nose MRSA Screen - Final Complete Labs and/or images reviewed: Labs reviewed by me, Image(s) reviewed by me Assessment/Plan Assessment/Plan Closed left ankle fracture: Short-leg splint/walking boot, no surgical intervention required per Dr. Coleman Sinus bradycardia cardiology consult by Dr.M Dorsey appreciated, status post dual-chamber pacemaker insertion by Dr. Dorsey doxy 100 mg p.o. b.i.d. for 7 days Status post left heart catheterization by crusher assembler Dr. Zeyad Dorsey on 02/12/2025 normal coronaries, 65 % ejection fraction Sepsis secondary to UTI with Morganella Morgagni E faecalis: Invanz 1 g IV daily, Zyvox 600 mg IV q.12h both for two weeks Cardiomegaly with pulmonary vascular congestion History of AFib on Eliquis and amiodarone CHF Hypertension History of ruptured brain aneurysm status post clipping Hypercholesterolemia History of DVT and PE on Eliquis Status post IVC filter at [place] History of CVA Acute renal injury Generalized weakness Spoke with daughter Pamela [phone] with the bedside and she is willing for the patient to go to [facility] facility for IV antibiotics Patient was in [facility] [place] and was discharged last month. Getting adjustment of the pacemaker leads by Dr. Dorsey today Time Spent 50 minutes Advanced care planning time 20 minutes Patient is full code Patient is being discharged to jail facility for IV antibiotics and rehab Plan discussed with: Patient Date of Service: Feb 16, 2025 Billing Provider: CRISTINA SONG MD Common Visit Codes: [id number] CARE 30-74 MIN CRISTINA SONG MD Feb 16, 2025 10:50
--- NOTE | 2025-02-16 11:07 | DVHDS2 ---
Discharge Summary Date of Admission Feb 08, 2025 at 22:10 Date of Discharge: Feb 15, 2025 Admitting Diagnosis Left ankle fracture Wounds: Left ankle fracture Labs/Diagnostic Data: Laboratory Results Test 02/16/25 05:57 02/15/25 14:42 02/15/25 09:30 02/13/25 04:59 White Blood Count 8.6 10^3/uL (4.4-10.8) Red Blood Count 3.43 10^6/uL (4.0-5.20) Hemoglobin 10.6 g/dL (12.2-16.2) Hematocrit 31.1 % (36.0-46.0) Mean Corpuscular Volume 90.7 fL (80.0-100.0) Mean Corpuscular Hemoglobin 30.8 pg (28.0-32.0) Mean Corpuscular Hemoglobin Concent 33.9 g/dL (32.0-36.0) Red Cell Distribution Width 15.6 % (11.8-14.3) Platelet Count 154 10^3/uL (140-450) Mean Platelet Volume 8.9 fL (6.9-10.8) Neutrophils (%) (Auto) 76.9 % (37.0-80.0) Lymphocytes (%) (Auto) 11.1 % (10.0-50.0) Monocytes (%) (Auto) 10.2 % (0.0-12.0) Eosinophils (%) (Auto) 1.4 % (0.0-7.0) Basophils (%) (Auto) 0.4 % (0.0-2.0) Neutrophils # (Auto) 6.6 10 ^3/uL (1.6-8.6) Lymphocytes # (Auto) 1.0 10 ^3/uL (0.4-5.4) Monocytes # (Auto) 0.9 10 ^3/uL (0-1.3) Eosinophils # (Auto) 0.1 10 ^3/uL (0-0.8) Basophils # (Auto) 0 10 ^3/uL (0-0.2) Nucleated Red Blood Cells 0.0 % Sodium Level 141 mmol/L (136-145) Potassium Level 3.8 mmol/L (3.5-5.1) Chloride Level 110 mmol/L (98-107) Carbon Dioxide Level 21 mmol/L (20-31) Anion Gap 10 (5-15) Blood Urea Nitrogen 13 mg/dL (9-23) Creatinine 1.00 mg/dL (0.550-1.02) Glomerular Filtration Rate Calc 58 mL/min (>90) BUN/Creatinine Ratio 13.0 (10.0-20.0) Serum Glucose 97 mg/dL (74-106) Calcium Level 7.9 mg/dL (8.7-10.4) Total Bilirubin 0.5 mg/dL (0.2-1.0) Aspartate Amino Transferase (AST) 18 U/L (13-40) Alanine Aminotransferase (ALT) 10 U/L (7-40) Alkaline Phosphatase 67 U/L (46-116) Total Protein 5.1 g/dL (5.7-8.2) Albumin 2.9 g/dL (3.2-4.8) Random Vancomycin Level 23.2 ug/mL (5-10) Magnesium Level 2.2 mg/dL (1.6-2.6) Vancomycin Level Trough 27.3 ug/mL (5-10) Prothrombin Time 11.2 sec (9.3-11.8) Prothrombin Time INR 1.06 (0.9-1.15) Activated Partial Thromboplast Time 28.5 SEC (24.5-34.5) Test 02/11/25 09:30 02/09/25 05:15 02/08/25 20:40 02/08/25 19:35 Urine Color Yellow (Yellow) Urine Clarity Cloudy (Clear) Urine pH 8.0 (5.0-9.0) Urine Specific [place] 1.013 (1.001-1.035) Urine Protein 1+ (Negative) Urine Ketones Negative (Negative) Urine Blood 3+ /uL (Negative) Urine Nitrite Negative (Negative) Urine Bilirubin Negative (Negative) Urine Urobilinogen Normal mg/dL (Negative) Urine Leukocyte Esterase 3+ /uL (Negative) Urine Glucose 3+ mg/dL (Normal) Hemoglobin A1c 5.4 % A1C (<5.7) Triglycerides Level 80 mg/dL (< 150) Cholesterol Level 157 mg/dL (< 200) LDL Cholesterol 86 mg/dL (< 100) HDL Cholesterol 59 mg/dL (40-59) Thyroid Stimulating Hormone (TSH) 1.52 uIU/mL (0.55-4.78) Troponin I High Sensitivity 7 ng/L (</=34) B-Type Natriuretic Peptide 89.03 pg/mL (0-100) Other Laboratory Tests 02/16/25 05:57 Brief Hx & Hospital Course: 79-year-old female with a history of hypertension ruptured brain aneurysm status post clipping hypercholesterolemia 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 Patient developed bradycardia while in the hospital seen by Cardiology Dr. Dorsey and underwent dual-chamber pacemaker insertion also left heart catheterization by Dr. Dorsey with a normal coronary 65 percent ejection fraction patient has had sepsis secondary to urinary tract infection with a Morganella Morgagni and E faecalis. Rocephin was discontinued started on Invanz and Zyvox which she will receive for two more weeks in the long-term history of AFib on Eliquis and amiodarone Discussed with the patient's daughter and the patient is being discharged to nursing home facility to receive two weeks of IV antibiotics physical therapy medication management. General condition stable but poor at the time of discharge. Consults/Reason for consult Cardiology Dr. Dorsey Orthopedic Dr Coleman Operations or Procedures Left heart catheterization Permanent pacemaker implantation Condition at Discharge: Fair Final Diagnosis/Problems List Closed left ankle fracture: Short-leg splint/walking boot, no surgical intervention required per Dr. Coleman Sinus bradycardia cardiology consult by Dr.M Dorsey appreciated, status post dual-chamber pacemaker insertion by Dr. Dorsey doxy 100 mg p.o. b.i.d. for 7 days Status post left heart catheterization by accident report clerk Dr. Zeyad Dorsey on 02/12/2025 normal coronaries, 65 % ejection fraction Sepsis secondary to UTI with Morganella Morgagni E faecalis: Invanz 1 g IV daily, Zyvox 600 mg IV q.12h both for two weeks Cardiomegaly with pulmonary vascular congestion History of AFib on Eliquis and amiodarone CHF Hypertension History of ruptured brain aneurysm status post clipping Hypercholesterolemia History of DVT and PE on Eliquis Status post IVC filter at [place] History of CVA Acute renal injury Generalized weakness Discharge Disposition: [facility]-Way Facility Discharge Instruct/Medications Diet: Cardiac 2g Na,low cholest Activity: Light activity Follow Up/Referral: Follow up with the long-term Medications: Invanz 1 g IV daily for two weeks Zyvox 600 mg IV q.12h for two weeks for complicated UTI See list for other meds Scheduled Amiodarone Hcl (Amiodarone Hcl), 200 MG PO Q12HR, (Reported) Amlodipine Besylate (Amlodipine Besylate), 10 MG PO DAILY, (Reported) Apixaban Base (Eliquis), 1 TAB PO BID, (Reported) Atorvastatin Calcium (Lipitor), 1 TAB PO DAILY, (Reported) Empagliflozin (Jardiance), 1 TAB PO DAILY, (Reported) Furosemide (Furosemide), 20 MG PO DAILY, (Reported) Gabapentin (Gabapentin), 100 MG PO TID, (Reported) Lisinopril (Lisinopril), 40 MG PO DAILY, (Reported) Spironolactone (Spironolactone), 1 TAB PO DAILY, (Reported) 39 (Time taken for discharge summary 39 minutes) Discharge Statement: "Patient was advised to return to the ER or call 911 if any headaches, dizziness, shortness of breath, chest pain, abdominal pain, bleeding, fevers, or worsening of medical condition. Patient was counseled about treatment plan, medications, possible side effects, patientverbalized understanding. All questions were answered to the best of my ability. This discharge took greater then 30 minutes in planning, reviewing documentation, counseling the patient, and discussing with other team members." DME: Diagnosis: Left ankle fracture ASSESSMENT ASSESSMENT Hospital Course Improved Assessment Closed left ankle fracture: Short-leg splint/walking boot, no surgical intervention required per Dr. Coleman Sinus bradycardia cardiology consult by Dr.M Dorsey appreciated, status post dual-chamber pacemaker insertion by Dr. Willian laird 100 mg p.o. b.i.d. for 7 days Status post left heart catheterization by accident report clerk Dr. Zeyad Dorsey on 02/12/2025 normal coronaries, 65 % ejection fraction Sepsis secondary to UTI with Morganella Morgagni E faecalis: Invanz 1 g IV daily, Zyvox 600 mg IV q.12h both for two weeks Cardiomegaly with pulmonary vascular congestion History of AFib on Eliquis and amiodarone CHF Hypertension History of ruptured brain aneurysm status post clipping Hypercholesterolemia History of DVT and PE on Eliquis Status post IVC filter at [place] History of CVA Acute renal injury Generalized weakness Date of Service: Feb 16, 2025 Billing Provider: CRISTINA SONG MD Common Visit Codes: 67821-[facility]/OBS DISCH DAY >30min CRISTINA SONG MD Feb 16, 2025 11:07
[2025-02-16 13:38] LABS: COVID19 ANTIGEN SOFIA FIA NEGATIVE (NEGATIVE)
--- NOTE | 2025-02-16 19:23 | DVHPN2 ---
Progress Note - Dictate Date Seen: Feb 16, 2025 Medical Necessity Reason Pt with a Central, PICC or Fol: No Subjective Patient was seen and evaluated in follow up in the [facility]. Patient has no new complaints at this time. Patient denies any cardiac symptoms. Patient is cardiac stable for discharge. vital signs Vital Sign Date Time Temp Pulse Resp B/P (MAP) Pulse Ox O2 Delivery O2 Flow Rate FiO2 02/16/25 16:00 60 02/16/25 13:00 18 113/73 (86) 92 02/16/25 11:09 98.8 02/16/25 07:42 Room Air* 0 21 Total Intake and Output 02/15/25 02/15/25 02/16/25 15:00 23:00 07:00 Intake Total 50 ml 450 ml Output Total 300 ml 400 ml Balance -250 ml 50 ml medications Current Medications Medications Dose Ordered Sig/Homer Route Start Time Stop Time Status Last Admin Dose Admin Vancomycin HCl 0 ml @ 0 mls/hr UD IV 02/15/25 08:30 Cancel objective GENERAL: Alert and oriented x 3. No acute distress. EYES: PERRL, EOMI. Anicteric. HENT: Moist mucous membranes. LUNGS: Clear to auscultation bilaterally. CARDIOVASCULAR: Regular rate and rhythm. ABDOMEN: Soft, nontender and nondistended. EXTREMITIES: Left ankle swelling and tenderness, limited range of motion. NEUROLOGIC: No focal neurological deficits. SKIN: Warm, dry. laboratory and microbiology Laboratory Tests 02/16/25 05:57 Test 02/16/25 05:57 Range/Units Serum Glucose 97 74-106 mg/dL Problem List Sinus bradycardia--possible Medication-related bradycardia. Cardiomegaly with pulmonary vascular congestion. History of AFib on Eliquis and amiodarone. CHF. Hypertension. Hyperlipidemia. History of DVT and PE on Eliquis. History of CVA. Assessment/Plan Continued all current supportive medical care. Nitro SL. GI prophylactics. IV antibiotics as ordered. Morphine and [place] for pain management. Additional plan as per the hospital course. Critical care time of 45 minutes provided to include time spent evaluation of patient at bedside, when appropriate patient/family education for diagnosis, treatment plan, review of pertinent medical information and discussion of care with specialty providers and PCP. Dietary Evaluation Review Comments: Nutrition Recommendation: 1) Ensure enlive 240ml BID 2) Monitor PO intake, lab values, weight trend, and I/O Expected Outcomes/Goals: To meet >75% estimated needs Fu 3-5 days Plan discussed with: Patient ANDREA BECKMAN MD Feb 16, 2025 18:34
[2025-02-16] MEDS ORDERED: LINEZOLID 600MG/300ML 300 ML IV SCH (22:00)
== END 2025-02-16 16:30 | DRG 853 ==
LOC: ER 19:24 → EDUNIT# 19:24 → EDBD 19:24 → OVERFLOW 22:10 → DOU 22:13 → OVERFLOW 23:46 → DOU 02-09 00:44
PROVIDERS: ADMIT Family Medicine; ATTEND Family Medicine
PROC: 02HV33Z Insertion of Infusion Device into Superior Vena Cava, Percutaneous Approach (ICD-10-PCS; 2025-02-11)
PROC: B548ZZA Ultrasonography of Superior Vena Cava, Guidance (ICD-10-PCS; 2025-02-11)
PROC: 4A023N7 Measurement of Cardiac Sampling and Pressure, Left Heart, Percutaneous Approach (ICD-10-PCS; 2025-02-12)
PROC: B211YZZ Fluoroscopy of Multiple Coronary Arteries using Other Contrast (ICD-10-PCS; 2025-02-12)
PROC: B215YZZ Fluoroscopy of Left Heart using Other Contrast (ICD-10-PCS; 2025-02-12)
PROC: 0JH606Z Insertion of Pacemaker, Dual Chamber into Chest Subcutaneous Tissue and Fascia, Open Approach (ICD-10-PCS; principal; 2025-02-13)
PROC: 02H63JZ Insertion of Pacemaker Lead into Right Atrium, Percutaneous Approach (ICD-10-PCS; 2025-02-13)
PROC: 02HK3JZ Insertion of Pacemaker Lead into Right Ventricle, Percutaneous Approach (ICD-10-PCS; 2025-02-13)
DX: A41.9 Sepsis, unspecified organism (principal); N17.0 Acute kidney failure with tubular necrosis; I13.0 Hypertensive heart and chronic kidney disease with heart failure and stage 1 through stage 4 chronic kidney disease, or unspecified chronic kidney disease; N39.0 Urinary tract infection, site not specified; S82.65XA Nondisplaced fracture of lateral malleolus of left fibula, initial encounter for closed fracture; I50.9 Heart failure, unspecified; E78.00 Pure hypercholesterolemia, unspecified; I48.91 Unspecified atrial fibrillation; K59.00 Constipation, unspecified; N18.9 Chronic kidney disease, unspecified; M85.872 Other specified disorders of bone density and structure, left ankle and foot; M77.32 Calcaneal spur, left foot; Z83.3 Family history of diabetes mellitus; Z79.01 Long term (current) use of anticoagulants; Z86.73 Personal history of transient ischemic attack (TIA), and cerebral infarction without residual deficits; Z86.718 Personal history of other venous thrombosis and embolism; Z86.711 Personal history of pulmonary embolism; Z95.828 Presence of other vascular implants and grafts; W18.39XA Other fall on same level, initial encounter; Y93.89 Activity, other specified; Y92.89 Other specified places as the place of occurrence of the external cause; Y99.8 Other external cause status
CPT/HCPCS: 33208; 36415; 36569; 70450; 71045; 73610; 80048; 80053; 80061; 80202; 81003; 83036; 83735; 83880; 84132; 84443; 84484; 85025; 85610; 85730; 87081; 87086; 87088; 87186; 87426; 93005; 93306; 93458; 96374; 96375; 97163; 99152; G0378; J1335; J2250; J2405; J2470; J3480; Q9967

== ENCOUNTER 2025-04-01 12:05 | Emergency (ER) | payer MEDICARE, MEDICAID ==
[~2025-04-01] VITALS: Ht 157.5 cm; Wt 72.2 kg
[~2025-04-01 12:05] MED LIST changes: +AMIO200T33 PO; +AMLO1TAB22 PO; +ATOR-507 PO; +FURO20TA3 PO; +GABA-1308 PO; +LISI40TA16 PO; +SPIR25TA8 PO
--- NOTE | 2025-04-01 13:54 | ED.PDOC ---
Musculoskeletal HPI Comments 79-year-old female presents to the ER with a granddaughter and with a prior surgical history of a pacemaker being placed one month ago in the chief complaint of a fall. Patient reports on waking up this morning out of bed in his a she was getting up to grab a hold of her walker she lost balance and missed the handle for the walker falling onto a corner table and hitting her left hip. Patient's granddaughter and grandson helped her get up from the ground S/P fall. Patient is taking medications for amiodarone, furosemide, Jerdiance, Eliquis, atorvastatin and amlodipine Denies any other symptoms at this time. PCP: Dr. Giselle Carter MD. Denies fever, chills, night sweats Denies persistent nausea Denies vomiting Denies thunderclap headache Denies photophobia, phonophobia Denies head trauma around the time headache started Denies family history of brain issues persistent headaches Denies taking any blood thinner medication Denies vision/hearing changes Denies focal loss of strength/sensation or changes in speech Chief Complaint: Fall Injury Time Seen by MD: 13:50 Primary Care Provider: ROSA M Reviewed Notes: Nurses Notes, Medications, Allergies Allergies: Coded Allergies: No Known Drug Allergy (Verified Allergy, Unknown, 04/22/22) Home Meds Active Scripts Sulfamethoxazole W/Trimethopri (Bactrim Ds Tablet) 1 Tab Tb, 1 TAB PO BID for 5 Days, #10 TAB 0 Refills Prov:STELLA JARRELL TOWER CRANE OPERATOR 04/01/25 Reported Medications Apixaban Base (ELIQUIS) 5 Mg Tab, 1 TAB PO BID for 30 Days, #60 02/11/25 Amiodarone Hcl (Amiodarone Hcl) 200 Mg Tab, 200 MG PO Q12HR for 30 Days 02/09/25 Furosemide (Furosemide) 20 Mg Tab, 20 MG PO DAILY for 30 Days, MG 02/09/25 Empagliflozin (Jardiance) 10 Mg Tab, 1 TAB PO DAILY for 30 Days, #30 02/09/25 Lisinopril (Lisinopril) 40 Mg Tab, 40 MG PO DAILY for 30 Days, MG 02/09/25 Spironolactone (Spironolactone) 25 Mg Tab, 1 TAB PO DAILY, #30 TAB 5 Refills 02/09/25 Atorvastatin Calcium (Lipitor) 40 Mg Tab, 1 TAB PO DAILY, #30 TAB 5 Refills 02/09/25 Amlodipine Besylate (Amlodipine Besylate) 5 Mg Tab, 10 MG PO DAILY for 30 Days, MG 02/09/25 Gabapentin (Gabapentin) 100 Mg Cap, 100 MG PO TID 02/09/25 Information Source: Patient, Relative (GrandChild) Mode of Arrival: Wheelchair Location: Left Extremity Location: Hip Timing: Hours Prehospital treatment: None Severity: Moderate Able to Move Extremity: Yes Bear Weight: Limited Pain: Moderate Hand Dominance: Right Mechanism: Spontaneous Circumstances: Fall Onset of Symptoms: After Trauma Symptoms: Pain DVT Risk Factors: NONE Associated signs and symptoms: Hip pain Past Medical History PAST MEDICAL HISTORY: AFIB, CHF, CVA, High Lipids, HTN Surgical History: Pacemaker TUFT MACHINE OPERATOR History: No Pertinent TUFT MACHINE OPERATOR History Family History Family History: Reviewed,noncontributory to illness, Unknown Social History Smoker: Non-Smoker Alcohol: Denies ETOH Use Drugs: Denies Drug Use Lives In: Home Constitutional: denies: chills, diaphoresis, fatigue, fever, malaise, sweats, weakness, others EENTM: denies: blurred vision, double vision, ear bleeding, ear discharge, ear drainage, ear pain, ear ringing, eye pain, eye redness, hearing loss, mouth pain, mouth swelling, nasal discharge, nose bleeding, nose congestion, nose pain, photophobia, tearing, throat pain, throat swelling, voice changes, others Respiratory: denies: cough, hemoptysis, orthopnea, SOB at rest, shortness of breath, SOB with excertion, stridor, wheezing, others Cardiovascular: denies: chest pain, dizzy spells, diaphoresis, Dyspnea on exertion, edema, irregular heart beat, left arm pain, lightheadedness, palp itations, PND, syncope, others Gastrointestinal: denies: abdomen distended, abdominal pain, blood streaked bowels, constipated, diarrhea, dysphagia, difficulty swallowing, hematemesis, melena, nausea, poor appetite, poor fluid intake, rectal bleeding, rectal pain, vomiting, others Genitourinary: denies: abnormal vagina bleeding, burning, dyspareunia, dysuria, flank pain, frequency, hematuria, incontinence, pain, , vagina discharge, urgency, others Neurological: denies: dizziness, fainting, headache, left sided numbness, left sided weakness, numbness, paresthesia, pre-existing deficit, right sided numbness, right sided weakness, seizure, speech problems, tingling, tremors, weakness, others Musculoskeletal: reports: others (Left hip pain); denies: back pain, gout, joint pain, joint swelling, muscle pain, muscle stiffness, neck pain Integumetry: denies: bruises, change in color, change in hair/nails, dryness, laceration, lesions, lumps, rash, wounds, others Allergic/Immunocompromised: denies: Difficulty Healing, Frequent Infections, Hives, Itching, others Hematologic/Lymphatic: denies: anemia, blood clots, easy bleeding, easy bruising, swollen glands, others Endocrine: denies: excessive hunger, excessive sweating, excessive thirst, excessive urination, flushing, intolerance to cold, intolerance to heat, unexplained weight gain, unexplained weight loss, others Psychiatric: denies: anxiety, bipolar disorder, depression, hopeless, panic disorder, schizophrenia, sleepless, suicidal, others All Other Systems: Reviewed and Negative Physical Exam Exam Comments Left hip pain associated with tenderness, NVS intact, radial pulse 2+ General Appearance: No Apparent Distress, Normal HEENT: Head (Normocephalic atraumatic. No abrasions lacerations hematomas open wounds or tenderness to palpation), Normal ENT Inspection, Pharynx Normal, TMs Normal Neck: Full Range of Motion, Non-Tender, Normal, Normal Inspection Respiratory: Chest Non-Tender, Lungs Clear, No Accessory Muscle Use, No Respiratory Distress, Normal Breath Sounds Cardiovascular: No Edema, No JVD, No Murmur, No Gallop, Normal Peripheral Pulses, Regular Rate/Rhythm Breast Exam: Deferred Gastrointestinal: No Organomegaly, Non Tender, No Pulsatile Mass, Normal Bowel Sounds, Soft Genitalia: Deferred Pelvic: Deferred Rectal: Deferred Extremities: No calf tenderness, Normal capillary refill, Normal inspection, Normal range of motion, Non-tender, No pedal edema Musculoskeletal : Apperance: Normal Neurologic: Alert, non destructive testing supervisor II-XII nml as Tested, No Motor Deficits, Normal Affect, Normal Mood, No Sensory Deficits Cerebellar Function: Normal Reflexes: Normal Skin: Dry, Normal Color, Warm Lymphatic: No Adenopathy Was a procedure done? Was a procedure done?: No Differential Diagnosis EXT Differential Diagnosis: Fracture, Sprain, Arthritis, Other X-Ray, Labs, Meds, VS Vital Signs Date Time Temp Pulse Resp B/P (MAP) Pulse Ox O2 Delivery O2 Flow Rate FiO2 04/01/25 15:18 97.9 65 18 145/63 (90) 96 97.9 04/01/25 15:18 65 18 96 Room Air 04/01/25 12:10 97.3 72 16 121/72 97 97.3 Lab Test 04/01/25 14:12 04/01/25 13:44 Range/Units White Blood Count 12.9 H 4.4-10.8 10^3/uL Red Blood Count 4.49 4.0-5.20 10^6/uL Hemoglobin 13.2 12.2-16.2 g/dL Hematocrit 41.1 36.0-46.0 % Mean Corpuscular Volume 91.5 80.0-100.0 fL Mean Corpuscular Hemoglobin 29.3 28.0-32.0 pg Mean Corpuscular Hemoglobin Concent 32.0 32.0-36.0 g/dL Red Cell Distribution Width 15.6 H 11.8-14.3 % Platelet Count 303 140-450 10^3/uL Mean Platelet Volume 7.7 6.9-10.8 fL Neutrophils (%) (Auto) 83.4 H 37.0-80.0 % Lymphocytes (%) (Auto) 10.5 10.0-50.0 % Monocytes (%) (Auto) 5.4 0.0-12.0 % Eosinophils (%) (Auto) 0.2 0.0-7.0 % Basophils (%) (Auto) 0.5 0.0-2.0 % Neutrophils # (Auto) 10.8 H 1.6-8.6 10 ^3/uL Lymphocytes # (Auto) 1.4 0.4-5.4 10 ^3/uL Monocytes # (Auto) 0.7 0-1.3 10 ^3/uL Eosinophils # (Auto) 0 0-0.8 10 ^3/uL Basophils # (Auto) 0.1 0-0.2 10 ^3/uL Nucleated Red Blood Cells 0.0 % Sodium Level 144 136-145 mmol/L Potassium Level 4.1 3.5-5.1 mmol/L Chloride Level 107 98-107 mmol/L Carbon Dioxide Level 24 20-31 mmol/L Anion Gap 13 5-15 Blood Urea Nitrogen 18 9-23 mg/dL Creatinine 1.36 H 0.550-1.02 mg/dL Glomerular Filtration Rate Calc 40 >90 mL/min BUN/Creatinine Ratio 13.2 10.0-20.0 Serum Glucose 140 H 74-106 mg/dL Calcium Level 9.7 8.7-10.4 mg/dL Urine Color Light-yellow Yellow Urine Clarity Turbid H Clear Urine pH 5.0 5.0-9.0 Urine Specific [place] 1.016 1.001-1.035 Urine Protein Negative Negative Urine Ketones Negative Negative Urine Blood Trace H Negative /uL Urine Nitrite Negative Negative Urine Bilirubin Negative Negative Urine Urobilinogen Normal Negative mg/dL Urine Leukocyte Esterase 3+ Negative /uL Urine RBC 4 0 - 4 /hpf Urine Microscopic WBC 360 H 0-5 /HPF Urine Squamous Epithelial Cells Few <5 /hpf Urine Bacteria None seen None Seen /hpf Urine Hyaline Casts Few 0 - 2 /lpf Urine Mucus Few None Seen Urine Glucose 4+ H Normal mg/dL X-Ray, Labs, Meds, VS Comment 79-year-old female presents to the ER with a granddaughter and with a prior surgical history of a pacemaker being placed one month ago in the chief complaint of a fall. Patient arrives alert and oriented, ABC's intact, afebrile, vital signs stable, saturating well in room air Peripheral IV insertion+ labs were ordered. CBC was ordered to exclude anemia, blood loss, or infection. BMP was ordered to exclude electrolyte abnormalities, renal failure, dehydration, hyperglycemia Urinalysis was ordered to rule out UTI or hematuria. Diagnostic imaging ordered by me and results interpreted by radiology : Left hip x-ray History and lab findings consistent with UTI Vital signs stable patient stable Patient tolerating p.o. fluids Encouraged parents to increase water intake Prescribed p.o. antibiotics for presentation of symptoms Complete course of antibiotic therapy even if symptoms improve or resolve. There should be no leftover antibiotics as this can lead to antibiotic resistant bacteria and even worse infection. Parents verbalized understanding. Potential side effects discussed with patient including abdominal pain, nausea, diarrhea. Recommended probiotics and return precautions given Patient has been evaluated for significant traumatic injury with the following injuries diagnosed: From a medical standpoint, the fall seems to be related to a geriatric syndrome. I have evaluated the patient for infection, severe electrolyte abnormalities, ischemia and other acute medical concerns I have reviewed the chart for the following high-risk medications: blood thinners, vasodilators, diuretics, antipsychotics sedative/hypnotics The patient has the following high-risk features: Age > 65 Difficulty with gait and/or balance Falls in the past 6 months Near syncope/syncope/orthostasis The patient has been evaluated for safety and has had an evaluation of gait. Based on my evaluation the patient was advised to be admitted for further evaluation however the patient declined admission at this time. Education was provided and patient verbalized understanding Follow-up with PCP in 2 to 3 days Patient verbalized understanding and agreed to treatment plan Vital signs stable, afebrile, no acute distress noted Advised to return precautions for any new or worsening symptoms, return to ER immediately for re-evaluation Patient is aware that the purpose of this visit was for an acute medical emergency requiring emergent stabilization. Chronic conditions, including yelena gnancies have not been ruled out. Patient is instructed to follow up with PCP as directed and discharge instructions for continued care and workup. If unable to arrange follow-up, patient is to return to the emergency department for reassessment. Patient (parent or legal guardian if applicable) was given verbal and written discharge instructions and acknowledges understanding. Time of 1ST Reevaluation: 14:20 Reevaluation 1ST: Unchanged Patient Education/Counseling: Diagnosis, Treatment, Prognosis Family Education/Counseling: Diagnosis, Treatment, Prognosis Departure 1 Departure Time of Disposition: 15:08 Impression: Primary Impression: Fall Qualified Codes: W19.XXXA - Unspecified fall, initial encounter Additional Impression: UTI (urinary tract infection) Qualified Codes: N30.00 - Acute cystitis without hematuria Disposition: HOME / SELF CARE / HOMELESS Condition: Fair e-Prescriptions Sulfamethoxazole W/Trimethopri (Bactrim Ds Tablet) 1 Tab Tb 1 TAB PO BID for 5 Days, #10 TAB 0 Refills Prov: STELLA JARRELL NP 04/01/25 Critical Care Note Critical Care Time?: No Stability Stability form required: No Heart Score Heart Score: Heart Score Response (Comments) Value History N/A 0 EKG N/A 0 Age N/A 0 Risk Factors N/A 0 Troponin N/A 0 Total 0 I personally scribed for STELLA JARRELL NP ([email or web address]) on 11/10/25 at 13:53. Electronically submitted by Carlos Hull ([email or web address]). STELLA JARRELL NP Apr 01, 2025 13:53
[2025-04-01 14:03] LABS: Urine Protein, UAD Negative (Negative)
[2025-04-01 14:26] LABS: Hematocrit 41.1 % (36.0-46.0); Hemoglobin 13.2 g/dL (12.2-16.2); Mean Corpuscular Hemoglobin 29.3 pg (28.0-32.0); Mean Corpuscular Volume 91.5 fL (80.0-100.0); Nucleated Red Blood Cells % 0.0 %
[2025-04-01 14:35] LABS: Chloride 107 mmol/L (98-107); Potassium 4.1 mmol/L (3.5-5.1); Sodium 144 mmol/L (136-145)
[2025-04-01 14:36] LABS: Anion Gap 13 (5-15); Carbon Dioxide 24 mmol/L (20-31)
[2025-04-01 14:37] LABS: Calcium 9.7 mg/dL (8.7-10.4)
--- NOTE | 2025-04-01 14:37 | DVH ---
EXAM: XY L HIP COMPLETE XRAY INDICATION: fall TECHNIQUE: Frontal radiographs of the hip and pelvis and frog-leg lateral view left hip COMPARISON: None FINDINGS/IMPRESSION: No radiographic evidence of an acute fracture, osseous malalignment, or aggressive osseous lesion. [id number] bilateral superior medial hip joint space loss. Moderate to severe stool burden. Minimal to mild degenerative change of the sacroiliac joints. Normal pubic symphyseal joint.
[2025-04-01 14:42] LABS: BUN/Creatinine Ratio 13.2 (10.0-20.0); Blood Urea Nitrogen 18 mg/dL (9-23)
[2025-04-01 14:47] LABS: Glucose 140 mg/dL (74-106)
[2025-04-01] MEDS ORDERED: BACDST PO (15:09)
[2025-04-01 15:18] VITALS: BP 145/63; PULSE 65; RESP 18; TEMP 97.9; O2SAT 96
== END 2025-04-01 15:21 | disposition home or self-care (01) ==
LOC: ER 12:05
DX: N39.0 Urinary tract infection, site not specified (principal); Z79.899 Other long term (current) drug therapy; Z86.73 Personal history of transient ischemic attack (TIA), and cerebral infarction without residual deficits; W22.03XA Walked into furniture, initial encounter; Y93.89 Activity, other specified; Y92.89 Other specified places as the place of occurrence of the external cause; Y99.8 Other external cause status
CPT/HCPCS: 36415; 73502; 80048; 81001; 85025